=== PATIENT | male | born 1940 | race Hispanic/Latino ===

== ENCOUNTER 2021-02-14 08:08 | Outpatient (CLI) | payer OTHER, SELFPAY ==
--- NOTE | 2021-02-14 | ECHO_ITS ---
Patient Info Name: Miguel Panda Age: 80 years : 1940 Gender: Male Ht: 72 in Wt: 185 lbs BSA: 2.07 m2 HR: 73 bpm BP: 161 / 79 mmHg Heart Rhythm: Sinus Rhythm Technical Quality: Fair Exam Date: 02/14/2021 9:20 AM Exam Location: [facility] Patient Status: Outpatient Admit Date: 02/14/2021 Staff Ordering Physician: Sergey, Ness HOWARD Car Sales Associate: Brielle Burch RDCS Attending Provider: Sergey, Ness HOWARD Referring Physician: Sergey DONALDSON; Exam Type: CA echo doppler color flow Study Info Indications - HX/O HTN ESRD THAYER Complete two-dimensional, color flow and Doppler transthoracic echocardiogram is performed. Summary 1. Complete two-dimensional, color flow and Doppler transthoracic echocardiogram is performed. 2. Normal left ventricular size with mild concentric hypertrophy. Good systolic function of all segments with no segmental wall motion abnormalities and a calculated ejection fraction is 60% and visual ejection fraction of 55-60%. Diastolic dysfunction is present. 3. Left atrial chamber dimension is moderately enlarged. 4. There is mild mitral valve regurgitation. 5. Mild pulmonary hypertension, estimated pulmonary arterial systolic pressure is 41 mmHg. 6. Normal sinus rhythm. Left Ventricle Left ventricular chamber dimension is normal. Left ventricular systolic function is normal, estimated at 55-60%. There is mildly increased left ventricular wall thickness. Left ventricular septal wall motion is normal. The left ventricular diastolic function is abnormal. Right Ventricle Right ventricular chamber dimension is normal. Right ventricular systolic function is normal. Left Atria Left atrial chamber dimension is moderately enlarged. Right Atria Right atrial chamber dimension is normal. Aortic Valve The aortic valve is trileaflet. There is mild aortic valve sclerosis. There is no aortic valve stenosis. There is no aortic valve regurgitation. Pulmonic Valve The pulmonic valve is normal. There is no pulmonic valve stenosis. There is no pulmonic regurgitation. Mitral Valve The mitral valve has thickened leaflets. There is no mitral valve stenosis. There is mild mitral valve regurgitation. Tricuspid Valve The tricuspid valve leaflets are normal. There is no significant tricuspid valve stenosis. There is trace tricuspid valve regurgitation. Mild pulmonary hypertension, estimated pulmonary arterial systolic pressure is 41 mmHg. Pericardium/Pleural The pericardium appears normal. There is no pericardial effusion. Inferior Vena Cava Normal inferior vena cava with >50% collapse upon inspiration consistent with Empty right atrial pressure, 10 mmHg. Aorta The aortic root size at the sinus of Valsalva is normal. The prox ascending aorta size is normal. Left Ventricular Outflow Tract Name Value Normal LVOT 2D LVOT Diameter 2.1 cm LVOT Doppler LVOT Peak Gradient 4 mmHg LVOT Mean Gradient 3 mmHg LVOT VTI 24 cm LVOT VTI/AV VTI Ratio
== END 2021-02-14 08:09 | disposition home or self-care (01) ==
LOC: ANHCARD 08:11
PROVIDERS: PCP Physician Assistant; Visit Provider Physician Assistant
DX: R06.09 Other forms of dyspnea (principal); I34.0 Nonrheumatic mitral (valve) insufficiency
CPT/HCPCS: 93306

== ENCOUNTER 2021-05-01 13:02 | Inpatient (IN) | payer OTHER, SELFPAY ==
[2021-05-01] VITALS (19 sets, daily range): BP systolic 109–143; BP diastolic 52–71; PULSE 82–112; RESP 14–27; TEMP 36–36.8; O2SAT 93–100; BMI 26.5
--- NOTE | ~2021-05-01 | XR_ITS ---
EXAMINATION: XR chest 1V portable DATE: 05/01/2021 17:01 INDICATION: Chest pain. Hypoxia. TECHNIQUE: frontal view of the chest was obtained. COMPARISON: Chest radiograph dated 05/11/2021 at 1:36 PM FINDINGS: Again seen is diffuse increased interstitial pattern with worsening groundglass opacities in the bila teral lower lung zones. No pleural effusion or pneumothorax. The cardiomediastinal silhouette is norm al. There are bridging osteophytes at multiple levels in the spine, consistent with diffuse idiopathi c skeletal hyperostosis (DISH). IMPRESSION: 1. Interstitial and increasing airspace opacities in the bilateral lower lung zones most likely worse ata pulmonary edema although differential includes pneumonia. Reviewed, dictated and finalized at location A. IMPRESSION: 1. Interstitial and increasing airspace opacities in the bilateral lower lung z ones most likely worsening pulmonary edema although differential includes pneum onia.
--- NOTE | ~2021-05-01 | XR_ITS ---
EXAMINATION: XR chest 2V DATE: 05/01/2021 13:40 INDICATION: Chest pain. TECHNIQUE: Frontal and lateral views of the chest were obtained. COMPARISON: CT abdomen and pelvis 01/05/2016 FINDINGS: There is a diffuse interstitial pattern. There are airspace opacities in the perihilar tg ons. No pleural effusion or pneumothorax. The heart size is normal. IMPRESSION: 1. Diffuse lung disease, likely mild pulmonary edema. Reviewed, dictated and finalized at location A.
--- NOTE | ~2021-05-01 | US_ITS ---
US abdomen limited INDICATION: Right upper quadrant abdominal pain PROCEDURE: Realtime right upper abdominal ultrasound. COMPARISON: No prior studies for comparison. FINDINGS: The pancreas is normal without focal mass or pancreatic ductal dilation. Liver echotexture is increased, consistent with fatty infiltration. There is normal directional flow in the portal ve in. There are gallbladder polyp measuring 5 mm. Common bile duct measures 4 mm. No sonographic Bailon's sign. IMPRESSION: 1: Gallbladder polyp measuring 5 mm. 2: Hepatic steatosis. Reviewed, dictated and finalized at location B.
--- NOTE | ~2021-05-01 | CT_ITS ---
EXAMINATION: CT chest abdomen pelvis wo con EXAM DATE: 05/02/2021 11:16 INDICATION: Chest and abd pain . TECHNIQUE: Spiral CT of the chest, abdomen and pelvis was performed without contrast. Axial, chaparro l and sagittal images chest, abdomen and pelvis were reviewed. Coronal maximum intensity pixel image s of chest reviewed. The dose-length product (DLP) for this examination was 1139.32 mGy-cm. The exp osure was tailored according to patient size (auto mA exposure control), and iterative reconstruction (ASIR) was used as additional dose reduction technique. Comparison is made to prior examination from 01/05/2016. FINDINGS: CHEST: There is moderate amount of patchy bilateral perihilar distribution groundglass airspace dise ase and some regions of confluence, probably edema or pneumonia (would be atypical distribution for C OVID 19). Moderate bilateral nonloculated pleural effusions, right greater than left. Right lower lo be segmental, left lower lobe subsegmental atelectasis. Tracheobronchial tree is patent. There is no mediastinal, hilar or axillary lymphadenopathy. There is no pneumothorax. Heart normal in size . There is mild coronary arterial calcification, arterial sclerosis. 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 Possible pancreatic tail cystic les ion measuring 1.1 cm. The differential diagnosis includes pseudocyst, intraductal papillary mucinous neoplasm (IPMN), mucinous cystic neoplasm (MCN), and the less common serous cystadenoma and neuroendo crine tumor. Correlate for history of pancreatitis. The liver, spleen are unremarkable. Probable cholelithiasis. Right kidney calculus casting the renal pelvis and collecting system, could be staghorn calculus. Multiple bilateral renal lesions of varyin g densities, cysts and hemorrhagic cysts. Can't exclude renal cell cancer in the setting, however pat ient was evaluated by MRI in 2016 and no suspicious lesions were identified on that study. There is m ild prostatomegaly. Some diffuse bladder wall thickening, could indicate chronic cystitis. Acute cys titis not excludable. There is no retroperitoneal or pelvic lymphadenopathy. Small to moderate rig ht, small left fat-containing inguinal hernias. Mild to moderate aortic arterial sclerosis. The appendix is not positively visualized. There is no pericecal inflammatory change to suggest appe ndicitis. The stomach and small bowel are unremarkable. There is moderate amount of colonic gas an d fluid to the sigmoid colon, where stool appears more solid in density. No free intraperitoneal ga s. Thoracolumbar diffuse idiopathic skeletal hyperostosis. Chronic sclerotic right femoral proximal diaphyseal lesion, benign. Probably bone island. There are no acute fractures identified. IMPRESSION: 1. Moderate bilateral perihilar distribution acute airspace disease, edema or pneumonia. 2. Moderate bilateral pleural effusions right greater than left with adjacent atelectasis. 3. Moderately distended colon with gas and fluid. No wall thickening. Enteritis, diarrhea? 4. Right renal staghorn calculus. 5. Possible small pancreatic tail cystic mass; one-year follow-up CT recommended. 6. Other chronic findings. Reviewed, dictated and finalized at location A. IMPRESSION: 1. Moderate bilateral perihilar distribution acute airspace disease, edema or pneumonia. 2. Moderate bilateral pleural effusions right greater than left with adjacent atelectasis. 3. Moderately distended colon with gas and fluid. No wall thickening. Enteriti s, diarrhea? 4. Right renal staghorn calculus. 5. Possible small pancreatic tail cystic mass; one-year follow-up CT recommend ed. 6. Other chronic findings.
--- NOTE | ~2021-05-01 | XR_ITS ---
XR chest port-a-cath/central 05/03/2021 10:02 Indication: Dialysis catheter placement Procedure: AP portable chest Comparison: 05/01/2021 Findings: Right IJ large bore central venous catheter tip near the cavoatrial junction. There is inte rstitial edema. No significant effusion or pneumothorax. No acute osseous abnormality. Heart size is normal. Impression: 1: Mild interstitial edema. Reviewed, dictated and finalized at location B. Impression: 1: Mild interstitial edema.
--- NOTE | 2021-05-01 13:02 | ECG_ITS ---
Measurements Intervals [place] Rate: 111 P: 68 GA: 100 QRS: 52 QRSD: 117 T: 87 QT: 338 QTc: 460 Interpretive Statements SINUS TACHYCARDIA WITH SHORT GA INTERVAL VENTRICULAR PREMATURE COMPLEX INTRAVENTRICULAR CONDUCTION DELAY ST-T WAVE ABNORMALITY IN ANTEROLAT/INF LEADS- CONSIDER ISCHEMIA BASELINE ARTIFACT- II, III, AVR, V3-V6 ABNORMAL ECG Electronically Signed On 05-01-2021 13:55:39 CDT by William Hardin D.O.
[2021-05-01] MEDS: MORPHINE SULFATE (*CRX) 4 MG/ML INJ IV PUSH ×2 (13:45→21:24)
[2021-05-01 14:54] LABS: Basophils Percent Auto 0.1 % (0.2-1.2); Immature Granulocyte Absolute 0.07 K/mm3 (0.00-0.031); Immature Granulocyte Percent A 0.5 % (0-0.5); Lymphocytes Absolute Auto 0.68 K/mm3 (0.9-3.2); Lymphocytes Percent Auto 5.1 % (18.3-44.2); Mean Corpuscular HGB Conc 32.2 g/dl (32-36); Mean Corpuscular Hemoglobin 30.3 pg (26-34); Mean Platelet Volume 10.7 fl (7.4-10.4); Monocytes Absolute Auto 0.8 K/mm3 (0.1-0.6); Monocytes Percent Auto 5.9 % (2.6-8.5); Neutrophils Absolute Auto 11.9 K/mm3 (1.3-6.7); Neutrophils Percent Auto 88.4 % (45.5-73.1); Platelet Count Result 180 k/mm3 (150-375); Red Blood Count 2.18 M/mm3 (4.6-6.20); Red Cell Distribution Width 14.1 % (11.5-14.5); White Blood Count 13.5 K/mm3 (4.5-10.0)
[2021-05-01 15:00] LABS: Hemoglobin 6.6 g/dL (14.0-18.0)
[2021-05-01 15:01] LABS: Hematocrit 20.5 % (42.0-52.0)
[2021-05-01 15:03] LABS: Anion Gap 14 mmol/L (8-16); Blood Urea Nitrogen 62 mg/dL (9-20); Calcium 8.1 mg/dL (8.4-10.2); Carbon Dioxide 17 mmol/L (22-30); Chloride 111 mmol/L (98-107); Estimated CRCL calculation 9 ml/min; Estimated Glomerular Filt Rate 9; Glucose 204 mg/dL (75-110); Sodium 142 mmol/L (137-145)
[2021-05-01 15:04] LABS: INR 1.3; Partial Thromboplastin Time 28.4 SECONDS (22.3-36.8); Prothrombin Time 16.4 Seconds (11.1-14.7)
[2021-05-01 15:20] LABS: Troponin I 0.976 ng/mL (0.000-0.034)
--- NOTE | 2021-05-01 15:22 | ED.CHESTPAIN ---
HPI - Chest Pain General Chief Complaint: Chest Pain Stated Complaint: CP/SOB Time Seen by Provider: 05/01/21 13:24 History of Present Illness HPI narrative: Patient is an 81-year-old male who presents ER with chest pain. Reports has been ongoing over the last 3 days. Burning in the center of his chest without radiation. Associated with exertional fatigue and increases when he is exerting himself. Today when he does exert himself he became nauseous and vomited on top of being so short of breath. Reports history of coronary disease and was treated in [place]. Denies having any stents. Has found no alleviating factors outside of rest however he is still having 10/10 chest pain at this time. Apparently patient has recently been seen by Dr. Alejandro with nephrology and was told that he will likely require dialysis in the next month. Additionally he was seen by an unknown marble worker with an unknown cardiology group in [place] yesterday and told that he is not having a heart attack. Related Data Home Medications Medication Instructions Recorded Confirmed alcohol swabs 1 pad TOPICAL DAILY 05/01/21 05/01/21 amlodipine 5 mg PO DAILY 05/01/21 05/01/21 atorvastatin 80 mg PO DAILY 05/01/21 05/01/21 calcitriol 0.25 mcg PO DAILY 05/01/21 05/01/21 ergocalciferol (vitamin D2) 50,000 unit PO DAILY 05/01/21 05/01/21 [Vitamin D2] ferrous sulfate [FeroSul] 650 mg PO BID 05/01/21 05/01/21 hydrochlorothiazide 25 mg PO DAILY 05/01/21 05/01/21 insulin detemir U-100 [Levemir unit SUBCUT 05/01/21 FlexTouch U-100 Insuln] insulin glargine [Basaglar KwikPen See Rx Instructions .ROUTE .COMPLEX 05/01/21 05/01/21 U-100 Insulin] isosorbide mononitrate 30 mg PO DAILY 05/01/21 05/01/21 latanoprost 2 drp EACH EYE DAILY 05/01/21 05/01/21 losartan 100 mg PO DAILY 05/01/21 05/01/21 nystatin 1 unit TOPICAL DAILY 05/01/21 05/01/21 sevelamer carbonate [Renvela] 100 mg PO TID 05/01/21 05/01/21 sodium bicarbonate 650 mg PO DAILY 05/01/21 05/01/21 tamsulosin [Flomax] 0.4 mg PO DAILY 05/01/21 05/01/21 timolol maleate 2 drp EACH EYE DAILY 05/01/21 05/01/21 Allergies Allergy/AdvReac Type Severity Reaction Status Date / Time No Known Allergies Allergy Verified 05/01/21 16:32 Review of Systems Review of Systems: All systems reviewed & are unremarkable except as noted in HPI and below Constitutional: Constitutional: Denies chills, Reports fatigue and Denies fever(s) Cardiovascular: Cardiovascular: Reports chest pain, Denies rapid heart rate and Denies radiating jaw, neck or arm pain Respiratory: Respiratory: Denies cough and Reports dyspnea Comments: Dyspnea on exertion Gastrointestinal: Gastrointestinal: Denies abdominal pain, Reports nausea and Reports vomiting PMFSH Past Medical History Medical History (Updated 05/01/21 @ 17:32 by James Rivera MD) Coronary artery disease Diabetes Hyperlipidemia Hypertension Kidney stones TIA (transient ischemic attack) Surgical History Surgical History (Updated 05/01/21 @ 15:24 by James Rivera MD) History of appendectomy Social History Social History (Updated 05/01/21 @ 15:24 by James Rivera MD) Smoking status: Never smoker Alcohol intake: never Substance use: never Spiritual care concerns: No Exam Narrative: Exam Narrative: GENERAL: Chronically ill-appearing, well-nourished, and in no acute distress. HEAD: Normocephalic, atraumatic. ENT: Mucous membranes moist. CHEST: Clear to auscultation. No respiratory distress. HEART: Regular rate and rhythm. Normal peripheral pulses. ABDOMEN: Soft, nontender, nondistended. EXTREMITIES: Normal range of motion. No edema. SKIN: Warm, dry, no rash. NEURO: Alert and oriented x3. PSYCH: Normal mood and affect. Course Course Emergency Course: Patient will be admitted to the hospitalist service and will receive a blood transfusion. Discussed case with cardiology who will also see patient in consultation. After discussion marianna
--- NOTE | 2021-05-01 16:42 | ECG_ITS ---
Measurements Intervals [place] Rate: 98 P: 59 TN: 120 QRS: 54 QRSD: 117 T: 186 QT: 354 QTc: 454 Interpretive Statements SINUS RHYTHM INTRAVENTRICULAR CONDUCTION DELAY ST-T WAVE ABNORMALITY IN ANTEROLAT/INF LEADS- CONSIDER ISCHEMIA BASELINE ARTIFACT- II, III, AVR, AVL, AVF, V3-V6 ABNORMAL ECG Electronically Signed On 05-02-2021 8:38:37 CDT by William Hardin D.O.
--- NOTE | 2021-05-01 16:43 | PC.NURSE ---
Patient placed on 2L oxygen due to patient's O2 being 89% on room air. Repeat EKG completed due to patient sudden onset more pain and sweating.
--- NOTE | 2021-05-01 16:44 | PM.CNNEP ---
Assessment and Plan Assessment and plan (1) Chronic kidney disease (CKD), stage V: Code(s): N18.5 - Chronic kidney disease, stage 5 Status: Chronic Assessment and Plan: known issue at baseline follow with Dr. Alejandro (primary coal briquette machine operator) reported that will likely need to start HORSE DOCTOR/dialysis in the next month given cardiac issues, anemia, and likely need for further intervetion (possible cardiac catheterization), will plan to initiated hemodialysis on this admission Surgery consulted for tunneled HD catheter follow electrolytes, volume status, and clearance (2) Non-ST elevation [place] (NSTEMI): Code(s): I21.4 - Non-ST elevation (NSTEMI) myocardial infarction Status: Acute Assessment and Plan: as noted by trend of troponins since admission Cardiology consulted follow-up on recommendations (3) Anemia: Code(s): D64.9 - Anemia, unspecified Status: Acute Assessment and Plan: related to CKD versus GI loss? PRBC transfusion currently follow H/H check iron studues will start Epogen with dialysis (4) Hypertension: Code(s): I10 - Essential (primary) hypertension Status: Chronic Assessment and Plan: reasonable control at this time will adjust BP medications as tolerated follow trend of hemodynamics (5) Diabetes: Code(s): E11.9 - Type 2 diabetes mellitus without complications Status: Chronic Assessment and Plan: follow accuchecks glycemic control Long extensive discussion (greater than 20 min) with the patient's daughter at bedside (as well as the patient's granddaughter by phone who was able to translate for me when I discussed the situation with the patient's daughter and the patient himself) regarding his advanced kidney disease, anemia, likely cardiac event, and assess the of packed red blood cell transfusion and possible further cardiac intervention /evaluation. I discussed my concern that given his advanced kidney disease it may be better to initiate renal replacement therapy/dialysis sooner than later to further optimize his status so we can better tolerate whatever interventions may need to be done and they all appeared to voice understanding. Will continue to follow. History of Present Illness Reason for Consult Consult date: 05/01/21 Reason for consult: chronic renal failure Chief Complaint Chief complaint: nstemi,ckd,anemia History of Present Illness Narrative: Most of the information I have obtained is from review of the electronic medical record as well as discussion with the patient's daughter at bedside as well as his granddaughter by phone who acted as motion pictures cartoonist as the patient only speaks [place]. The patient is an 81-year-old male with a past medical history as outlined below who presented to [facility] Emergency room with complaints of chest pain. Apparently, the patient has been having chest pain for last 3 days which she described as a epigastric discomfort that seemed to go across his abdomen into his right arm. Associated symptoms included nausea and 1 episode of vomiting along with increasing shortness of breath for the past 3 days as well. Do the persistence of the symptoms and ongoing discomfort, he presented to the emergency room for further evaluation and therapy. Workup and evaluation emergency room demonstrated an elevated troponin but subsequent troponins consistent with what appeared to be in non ST elevation [place]. Routine blood test demonstrated significant anemia with a hemoglobin of 6.6 and a chemistry panel that was consistent with his known history of advanced chronic kidney disease. In spite of his advanced kidney disease he had no critical electrolyte abnormalities to speak of. His pro BNP was quite elevated as well. Given these constellation of symptoms as well as the findings consistent with what appeared to be a non ST elevation [place], he was admitted the hospital for packed red blo
[2021-05-01 16:49] LABS: Glucose Point of Care 206 mg/dl (65-105)
--- NOTE | 2021-05-01 17:06 | PC.NURSE ---
Called and spoke to Diana in lab to add on BNP @ [phone]
[2021-05-01] MEDS: FUROSEMIDE INJ 40 MG/4 ML VIAL IV PUSH (17:38)
[2021-05-01 17:55] LABS: NT Pro B Type Natriuretic Pept 15000 pg/mL (5-100)
--- NOTE | 2021-05-01 18:05 | ADMGEN ---
This patient, iMguel Panda, was admitted to IMU Room 206-02. Patient/family oriented to hospital policies and general routines including ID bracelet, bed and alarms, visiting hours, pain management, procedures, bathroom and other care routines, personal items, smoking policy, room service/diet, and visiting hours. Information on how to activate the Rapid Response Team has been discussed. Patient/Family are encouraged to report perceived risks to care and to ask questions if they do not understand what they are told or what they should do.
[2021-05-01] MEDS: SODIUM CHLORIDE 0.9% IV 250 ML 30 ML IV CONT (19:05)
[2021-05-01] MEDS: TUBING, BLOOD PLUM PUMP TUBING 1 EACH XX ×2 (19:05→23:00)
[2021-05-01] MEDS: NITROGLYCERIN OINTMENT 1 INCH DOSE TRANSDERM ×2 (21:37→23:39)
--- NOTE | 2021-05-01 22:31 | PM.IMHP ---
H&P: HPI History of Present Illness Date/Time: 05/01/21 22:31 this is a 81-year-old Jordanian-speaking male patient with a past medical history of diabetes, hypertension and coronary artery disease. The patient presented to the emergency room which chest pain. This is been ongoing for 3 days. I used the diplomatic interpreter to talk with the patient initially he told me that the pain was not that bad and then he told me that it was bad pain the patient complained of right epigastric discomfort that went across his abdomen into his right arm. The patient stated that he had been treated for heart attack in [place] in the past. But he denies having any stents. The patient was becoming nauseated when he exerted himself and then he vomited 1 time. Denies any nausea at this time. The patient typically goes to [facility] [place]. He sees Dr. Alejandro with nephrology and was told that most likely he would require dialysis this next month. He was seen by unknown election judge with the cardiology group of [facility] yesterday they told him he was not having a heart attack. H&H is 6.6 and 20.5 the patient is getting a unit of packed red blood cells at this time. Unsure if he just has chronic anemia and this is just got worse. Most likely has chronic anemia on due to his chronic renal failure. His troponin was 0.976 and 2.2-0. BNP 47472 his blood sugar was 202-206. His potassium is normal 4.0. Creatinine 5.8 with a GFR of 9. I spoke with Dr. Marmolejo who agreed to consult on the patient. I also spoke with Dr. Montoya concerning the patient's anemia and is elevated troponin. No heparin was started at this time. No beta-nia was started. When I called the diplomatic interpreter line and the patient was some me that he was having pain I gave him some morphine it looks like the patient had been on isosorbide at home. Admitted to inpatient services on 05/01/2021 Chief Complaint: Chest pain Review of Systems Review of Systems: All systems reviewed & are unremarkable except as noted in HPI and below Constitutional: Constitutional: Reports as per HPI and Reports no additional constitutional complaints Eyes: Eyes: Reports as per HPI and Reports no additional eye complaints ENT: Reports system reviewed and no additional complaints, except as documented and Reports Normal hearing present Cardiovascular: Cardiovascular: Reports no additional cardiovascular complaints Respiratory: Respiratory: Reports no additional respiratory complaints and Reports no additional respiratory complaints Gastrointestinal: Gastrointestinal: Reports as per HPI and Reports no additional gastrointestinal complaints Musculoskeletal: Musculoskeletal: Reports no additional musculoskeletal complaints Integumentary/Breasts: Skin/Breast: Reports system reviewed and no additional complaints, except as docu and Reports as per HPI Neurologic: Reports system reviewed and no additional complaints, except as documented, Reports as per HPI and Reports Normal hearing present Psychiatric: Psychiatric: Reports no additional psychiatric complaints and Reports as per HPI Endocrine: Endocrine: Reports no additional endocrine complaints Hematologic/Lymphatic: Hematologic/Lymphatic: Reports no additional hematologic/lymphatic complaints Allergic/Immunologic: Allergic/Immunologic: Reports no additional allergic/immunologic complaints [facility] Past Medical History Medical History (Updated 05/01/21 @ 22:41 by Devorah Shane NP) BPH (benign prostatic hyperplasia) Coronary artery disease Diabetes Hyperlipidemia Hypertension Kidney stones Myocardial infarction TIA (transient ischemic attack) Surgical History Surgical History (Updated 05/01/21 @ 22:41 by Devorah Shane NP) H/O eye surgery Retinal repair to right eye History of appendectomy History of bladder surgery Family History Family History (Updated 05/01/21 @ 22:42 by Devorah Shane NP) Mother Cancer Social History Social History (Update
[2021-05-01] MEDS: SODIUM CHLORIDE 0.9% IV 250 ML 30 ML (23:00)
[2021-05-01] MEDS: METOPROLOL TARTRATE 6.25 MG TABLET PO (23:30)
[2021-05-01] MEDS: MICONAZOLE NITRATE 2% CREAM 30 GM TUBE 1 APPLIC TOPICAL (23:30)
[2021-05-02] VITALS (18 sets, daily range): BP systolic 133–162; BP diastolic 65–78; PULSE 79–93; RESP 14–20; TEMP 36.3–36.9; O2SAT 91–100
--- NOTE | 2021-05-02 | ECHO_ITS ---
Patient Info Name: Miguel Panda Age: 81 years : 1940 Gender: Male Ht: 65 in Wt: 159 lbs BSA: 1.83 m2 HR: 86 bpm BP: 133 / 73 mmHg Heart Rhythm: Sinus Rhythm Technical Quality: Good Exam Date: 05/02/2021 2:59 PM Exam Location: [facility] Patient Status: Inpatient Admit Date: 05/01/2021 Staff Ordering Physician: eDvorah Shane NP Clinical Education Assistant: Wilton Bailon, SUZIE, RT Attending Provider: Karla Bazan MD Referring Physician: Svitlana SIMENTAL; Exam Type: CA echo doppler color flow Study Info Indications J81.1 - Chronic pulmonary edema Complete two-dimensional, color flow and Doppler transthoracic echocardiogram is performed. Strain analysis performed. Summary 1. Complete two-dimensional, color flow and Doppler transthoracic echocardiogram is performed. 2. Left ventricular systolic function is mildly reduced, estimated at 50-55%. Mild hypokinesis of the mid inferolateral mid anteroseptal wall. 3. There is mildly increased left ventricular wall thickness. 4. The left ventricular diastolic function is grade I diastolic dysfunction. 5. There is mild tricuspid valve regurgitation. 6. Moderate pulmonary hypertension, estimated pulmonary arterial systolic pressure is 53 mmHg. 7. There is mild mitral valve regurgitation. 8. There is borderline mild aortic valve stenosis with a peak velocity of 187 cm/s, mean gradient of 7 mmHg, and aortic valve area of 2.0cm2. 9. There is mild aortic valve regurgitation. Left Ventricle Left ventricular chamber dimension is normal. Left ventricular systolic function is mildly reduced, estimated at 50-55%. Mild hypokinesis of the mid inferolateral mid anteroseptal wall. There is mildly increased left ventricular wall thickness. The left ventricular diastolic function is grade I diastolic dysfunction. Global longitudinal strain is moderately elevated at -10 %. Right Ventricle Right ventricular chamber dimension is normal. Right ventricular systolic function is normal. Left Atria Left atrial chamber dimension is normal. Right Atria Right atrial chamber dimension is normal. Aortic Valve The aortic valve is not well visualized. There is borderline mild aortic valve stenosis with a peak velocity of 187 cm/s, mean gradient of 7 mmHg, and aortic valve area of 2.0cm2. There is mild aortic valve regurgitation. Pulmonic Valve The pulmonic valve is not well visualized. Mitral Valve The mitral valve has normal leaflets. There is mild mitral valve regurgitation. The mitral valve annulus is mildly calcified. Tricuspid Valve The tricuspid valve leaflets are normal. There is mild tricuspid valve regurgitation. Moderate pulmonary hypertension, estimated pulmonary arterial systolic pressure is 53 mmHg. Pericardium/Pleural The pericardium appears normal. There is no pericardial effusion. Inferior Vena Cava Normal inferior vena cava with >50% collapse upon inspiration consistent with normal right atrial pressure, 5 mmHg. Aorta The aortic root size at the sinus of Valsalva is normal. There is mild aortic atherosclerosis. Left Ventricular Outflow Tract Name Value Normal LVOT 2D LVOT Diameter 2.0 cm LVOT Doppler
--- NOTE | 2021-05-02 01:33 | ECG_ITS ---
Measurements Intervals [place] Rate: 92 P: 80 UT: 120 QRS: 64 QRSD: 113 T: 48 QT: 376 QTc: 467 Interpretive Statements SINUS RHYTHM INTRAVENTRICULAR CONDUCTION DELAY ST-T WAVE ABNORMALITY IN ANTERIOR LEADS- CONSIDER ISCHEMIA BASELINE ARTIFACT- I, III, AVR, AVL, AVF, V4-V6 ABNORMAL ECG Electronically Signed On 05-02-2021 6:16:40 CDT by William Hardin D.O.
[2021-05-02] MEDS: MORPHINE SULFATE (*CRX) 4 MG/ML INJ IV PUSH ×4 (01:35→21:35)
[2021-05-02] MEDS: ONDANSETRON INJ 4 MG/2 ML VIAL IV PUSH ×2 (01:35→11:19)
[2021-05-02 02:45] LABS: Hemoglobin 9.6 g/dL (14.0-18.0); Mean Corpuscular Hemoglobin 30.2 pg (26-34); Mean Corpuscular Volume 94.3 fl (80-100); Mean Platelet Volume 10.9 fl (7.4-10.4); Platelet Count Result 177 k/mm3 (150-375); Red Blood Count 3.18 M/mm3 (4.6-6.20); Red Cell Distribution Width 14.5 % (11.5-14.5); White Blood Count 13.4 K/mm3 (4.5-10.0)
[2021-05-02 02:58] LABS: Albumin Level 3.2 g/dL (3.5-5.1); Anion Gap 14 mmol/L (8-16); Blood Urea Nitrogen 66 mg/dL (9-20); Carbon Dioxide 18 mmol/L (22-30); Chloride 110 mmol/L (98-107); Estimated CRCL calculation 9 ml/min; Estimated Glomerular Filt Rate 10; Glucose 142 mg/dL (75-110); Phosphorus 6.7 mg/dL (2.5-4.5); Potassium 4.4 mmol/L (3.4-5.0); Sodium 142 mmol/L (137-145)
[2021-05-02 03:09] LABS: Hemoglobin A1C 5.5 % (<5.7)
[2021-05-02 03:10] LABS: Iron 28 ug/dL (49-181)
[2021-05-02 03:20] LABS: Percent Iron Saturation 11 % (20-50)
[2021-05-02 04:03] LABS: Parathyroid Intact 256.5 pg/mL (7.5-53.5)
[2021-05-02 04:53] LABS: Hepatitis B Surface Antigen Negative (Negative)
[2021-05-02 05:22] LABS: HAV RESULT Negative (Negative); Hepatitis B Core IgM Result Negative (Negative); Hepatitis B Surface Anti Res Indeterminate; Hepatitis C Virus Antibody Negative (Negative)
[2021-05-02 05:36] LABS: Vitamin D 25 Hydroxy 61.8 ng/mL
[2021-05-02] MEDS: NITROGLYCERIN OINTMENT 1 INCH DOSE TRANSDERM ×4 (06:57→23:16)
[2021-05-02] MEDS: amLODIPine BESYLATE 5 MG TABLET PO (09:20)
[2021-05-02] MEDS: METOPROLOL TARTRATE 6.25 MG TABLET PO ×2 (09:20→21:10)
[2021-05-02] MEDS: FAMOTIDINE 20 MG/2 ML VIAL IV PUSH ×2 (09:20→21:10)
[2021-05-02] MEDS: SEVELAMER CARBONATE 800 MG TABLET PO ×3 (09:20→17:46)
[2021-05-02] MEDS: SODIUM BICARBONATE TAB 650 MG TABLET PO (09:20)
[2021-05-02] MEDS: ATORVASTATIN 40 MG TABLET 80 MG PO (09:20)
[2021-05-02] MEDS: TIMOLOL MALEATE 0.5% OP SOLN 5 ML BOTTLE 2 DROP EACH EYE (09:21)
[2021-05-02] MEDS: TAMSULOSIN HCL 0.4 MG CAPSULE PO (09:21)
[2021-05-02] MEDS: MICONAZOLE NITRATE 2% CREAM 30 GM TUBE 1 APPLIC TOPICAL ×2 (09:21→21:10)
[2021-05-02 10:04] LABS: Hematocrit 31.3 % (42.0-52.0); Hemoglobin 10.3 g/dL (14.0-18.0)
--- NOTE | 2021-05-02 10:05 | PM.CNCAR ---
Assessment and Plan Additional Plan 1-elevated troponins consistent with NSTEMI. 2-chest pains. 3-severe anemia. 4-stage 5 kidney disease. 5-abdominal pain and tenderness. This is 81-year-old patient who presents to the hospital with chest pain. He was found to have severe anemia with hemoglobin 6.6 status post blood transfusion. On physical exam has tenderness to epigastric area and right upper quadrant. Used online palliative care specialist and also called the granddaughter. At this time recommend ultrasound of the right upper quadrant and CT of the abdomen and pelvis without contrast. If both are negative then we commend that we start on aspirin and heparin. Obtain echocardiogram. Cardiac catheterization will be done if the CT scan does not show acute abdomen. <Sherrie Moy MD - Last Filed: 05/02/21 10:51> Addendum: Re-evaluated patient at bedside. Patient is sleeping comfortably after receiving morphine for complaints of abdominal pain and right-sided chest pain. Daughter at bedside spoke at length answered all questions described the nature patient's clinical problems concern with regards to bleeding risk, anemia, end-stage renal disease requiring hemodialysis, myocardial infarction with elevated troponin and concern for underlying blockages. Also spoke with patient's granddaughter on the phone as cash checker service had previously been unreliable. Explained the clinical situation of which she was aware in great detail once again. I advised we should monitor patient's tolerance to heparin to ensure no active bleeding or decline in hemoglobin prior to subjecting him to intervention and stenting which would prevent us from discontinuing antiplatelet therapy and/or anticoagulation safely. We also discussed she developed refractory chest pain, hemodynamic instability or new concerning changes on EKG we will take the patient emergently to the starch factory laborer as necessary. As he is stable, comfortable with no further EKG changes will stabilize on anticoagulation, observe tolerance and plan for coronary angiography tomorrow morning. Hemodialysis is also planned tomorrow. Patient's daughter and granddaughter verbalized understanding of the clinical circumstances the, the high risk nature of his multiple comorbidities, advanced age renal disease, anemia, elevated troponin concern for underlying CAD. Echocardiogram bedside revealed mild LV dysfunction EF 45-50% mild inferolateral and/or inferoseptal hypokinesis. Further recommendation to follow. Keep NPO after midnight. Notify us if recurrent refractory chest pain, hemodynamic instability or bleeding complications. Patient's clinical status updated and discussed with Dr. Rao of interventional cardiology who agreed with the plan of care. <Christian Radford MD - Last Filed: 05/02/21 16:05> History of Present Illness History of Present Illness Consult date/time: date of service 05/02/21 10:05 <Sherrie Moy MD - Last Filed: 05/02/21 10:51> Requesting physician: James Rivera MD <Sherrie Moy MD - Last Filed: 05/02/21 10:51> Consult reason: chest pain and Other (Elevated troponins) <Sherrie Moy MD - Last Filed: 05/02/21 10:51> Reason For Visit: nstemi,ckd,anemia <Sherrie Moy MD - Last Filed: 05/02/21 10:51> Narrative: this is a 81-year-old Peruvian-speaking male patient with a past medical history of diabetes, hypertension and coronary artery disease With no stent. I used a palliative care specialist on line got some in for that he has being getting intermittent right chest pain on exertion for 3 months associated with shortness of breath. But the patient is also poor historian. Unfortunately the palliative care specialist line got interrupted several times and I could not complete talking to the patient. I called his granddaughter who stated that he has been having chest pains as well. Denies bleeding. He has been getting shortness of breath as well.
--- NOTE | 2021-05-02 10:21 | PM.IMPN ---
Progress Note: A&P Assessment and Plan (1) Chronic kidney disease (CKD), stage V: Code(s): N18.5 - Chronic kidney disease, stage 5 Status: Chronic Assessment and Plan: Monitor renal function and electrolytes Consult nephrology,l plan to place dialysis catheter to initiate hemodialysis soon. (2) Myocardial infarction: Code(s): I21.9 - Acute myocardial infarction, unspecified Status: Acute Assessment and Plan: Atorvastatin Control blood pressure Discuss cardiology team about plan for cardiac catheterization Cardiology team recommended CT of chest abdomen pelvis and abdominal ultrasound before proceeding with cardiac catheterization, case was discussed with Dr.Farah Crawford anticoagulation until excluding acute surgical etiology, or active bleeding. (3) Diabetes: Code(s): E11.9 - Type 2 diabetes mellitus without complications Status: Chronic Assessment and Plan: Hemoglobin A1c is 5.5 No significant hyperglycemia (4) Hypertension: Code(s): I10 - Essential (primary) hypertension Status: Chronic Assessment and Plan: Norvasc Hydrochlorothiazide Monitor vital signs closely (5) Anemia: Code(s): D64.9 - Anemia, unspecified Status: Acute Assessment and Plan: Status post blood transfusion Monitor vital signs and hemoglobin CT noncontrast Abdominal ultrasound Hemoglobin is stable after blood transfusion. Consider GI consult if stools guaiac are positive (6) CKD (chronic kidney disease): Code(s): N18.9 - Chronic kidney disease, unspecified Status: Acute (7) Pulmonary edema: Code(s): J81.1 - Chronic pulmonary edema Status: Acute Assessment and Plan: Lasix p.r.n. Subjective Date/time seen: 05/02/21 10:21 Patient is laying in bed, complaining of moderate, intermittent, diffuse chest and abdomen pain. No pain at this time. Case was discussed with patient's daughter and patient room. Exam Const: General: No confusion Orientation/consciousness: No confusion HENMT: General nose exam: Normal nares present and no epistaxis Eyes: Direct Ophthalmoscopy: No photophobia Neck: Neck: no JVD Resp: Effort & Inspection: normal respiratory effort Auscultation: clear to auscultation bilaterally Cardio: Rate: regular rate GI: Inspection: non-distended GI Palp: Yes Soft to palpation Skin: General skin exam: normal color Neuro: General: No confusion Cranial nerves: Yes Normal hearing present Speech: No Abnormal speech present Motor exam (neuro): Normal motor muscle tone present throughout and Abnormal motor strength present Extrem: General: normal to inspection Psych: Affect: normal affect Objective Data Vital Signs Vital Signs: Vital Signs - 24 hr 05/01/21 13:03 05/01/21 13:08 05/01/21 13:09 Temperature 98.2 F Pulse Rate 112 H 110 H Respiratory Rate 27 H Blood Pressure 125/65 Pulse Oximetry 100 96 05/01/21 13:46 05/01/21 14:47 05/01/21 16:30 Temperature Pulse Rate 103 H 96 91 Respiratory Rate 24 H 19 18 Blood Pressure 109/52 L 122/58 L 122/60 Pulse Oximetry 95 98 95 05/01/21 17:34 05/01/21 18:00 05/01/21 18:07 Temperature 96.8 F L Pulse Rate 89 98 96 Respiratory Rate 16 20 Blood Pressure 142/71 H 138/67 Pulse Oximetry 100 98 05/01/21 19:06 05/01/21 19:21 05/01/21 20:00 Temperature 97.0 F L 97.1 F L 97.1 F L Pulse Rate 93 89 90 Respiratory Rate 18 16 16 Blood Pressure 143/71 H 142/66 H 142/66 H Pulse Oximetry 97 96 96 05/01/21 20:21 05/01/21 22:00 05/01/21 22:33 Temperature 97.3 F L 97.4 F L Pulse Rate 89 86 89 Respiratory Rate 20 18 Blood Pressure 141/71 H 135/68 Pulse Oximetry 93 100 05/01/21 22:58 05/01/21 23:15 05/01/21 23:30 Temperature 98.1 F 97.8 F Pulse Rate 87 84 82 Respiratory Rate 14 14 Blood Pressure 136/68 134/70 Pulse Oximetry 94 94 05/01/21 23:37 05/02/21 00:00 05/02/21 00:15 Temperature 97.8 F 97.5 F L Pul
--- NOTE | 2021-05-02 10:52 | ECG_ITS ---
Measurements Intervals [place] Rate: 87 P: 59 CO: 146 QRS: 57 QRSD: 113 T: 78 QT: 360 QTc: 435 Interpretive Statements SINUS RHYTHM POSSIBLE LEFT ATRIAL ENLARGEMENT INTRAVENTRICULAR CONDUCTION DELAY BORDERLINE ST-T WAVE ABNORMALITY- DIFFUSE LEADS BASELINE ARTIFACT- I, III, AVL BORDERLINE ECG Electronically Signed On 05-02-2021 13:49:35 CDT by William Hardin D.O.
--- NOTE | 2021-05-02 11:18 | PM.CNGS ---
Assessment and Plan Assessment and plan (1) Chronic kidney disease (CKD), stage V: Code(s): N18.5 - Chronic kidney disease, stage 5 <Brittneywayne CarreonSATHISH quinonez - Last Filed: 05/02/21 14:53> Status: Chronic <Brittney CarreonSATHISH quinonez - Last Filed: 05/02/21 14:53> Assessment and Plan: Patient has chronic kidney disease and we have been asked to see the patient by Nephrology for placement of a tunneled dialysis catheter for hemodialysis access. Due to his acute coronary issues, he is not a candidate to go to the OR for a tunneled dialysis catheter. Therefore, we would recommend proceeding with a temporary dialysis catheter to allow for hemodialysis access. He is making some urine and not in any respiratory distress at this time. Nephrology is not needing to dialyze the patient today and feels it would be okay to wait until tomorrow to proceed with the procedure. This will allow him to complete his cardiac workup today and possibly have his cardiac catheterization if felt necessary by Cardiology. I have discussed the case with Dr. Starks. We will plan to proceed with bedside placement of a temporary dialysis catheter tomorrow with local anesthetic. I have discussed this with the patient and his daughter with the [employer] video manuscript editor. <Brittney Ling CarreonSATHISH quinonez - Last Filed: 05/02/21 14:53> (2) Non-ST elevation [place] (NSTEMI): Code(s): I21.4 - Non-ST elevation (NSTEMI) myocardial infarction <SATHISH Gray - Last Filed: 05/02/21 14:53> Status: Acute <Brittney BLeah LauriSATHISH quinonez - Last Filed: 05/02/21 14:53> Assessment and Plan: Cardiology following and holding off on heparin drip due to anemia. Troponin continues to rise. Plan for possible cardiac catheterization pending CT scan and ultrasound. I have discussed the case with cardiology. See plan above. <Britntey Dubon LauriSATHISH quinonez - Last Filed: 05/02/21 14:53> (3) Anemia: Code(s): D64.9 - Anemia, unspecified <SATHISH Gray - Last Filed: 05/02/21 14:53> Status: Acute <SATHISH Gray - Last Filed: 05/02/21 14:53> Assessment and Plan: Hemoglobin 6.6 on admission. He has received 2 units of PRBCs. This could be more of chronic anemia due to his chronic kidney disease, but this is being further worked up by the primary team. Hemoglobin up to 10.3 this morning after transfusions. Continue to monitor. <Brittney Ahumada COPY SUPERVISOR - Last Filed: 05/02/21 14:53> (4) Pulmonary edema: Code(s): J81.1 - Chronic pulmonary edema <Brittney Ahumada COPY SUPERVISOR - Last Filed: 05/02/21 14:53> Status: Acute <Brittney Ahumada COPY SUPERVISOR - Last Filed: 05/02/21 14:53> (5) Diabetes: Code(s): E11.9 - Type 2 diabetes mellitus without complications <Brittney Tatepeter COPY SUPERVISOR - Last Filed: 05/02/21 14:53> Status: Chronic <Brittney Ahumada COPY SUPERVISOR - Last Filed: 05/02/21 14:53> (6) Hypertension: Code(s): I10 - Essential (primary) hypertension <Brittney Ahumada COPY SUPERVISOR - Last Filed: 05/02/21 14:53> Status: Chronic <Brittney Ahumada COPY SUPERVISOR - Last Filed: 05/02/21 14:53> (7) Abdominal pain: Code(s): R10.9 - Unspecified abdominal pain <Brittney Ahumada COPY SUPERVISOR - Last Filed: 05/02/21 14:53> Status: Acute <Brittney Ahumada COPY SUPERVISOR - Last Filed: 05/02/21 14:53> Assessment and Plan: Patient going down for abdominal ultrasound and CT scan of the abdomen and pelvis due to abdominal pain and tenderness. We will review these results. Due to his acute cardiac issues, he would not be a candidate for surgical intervention, and we would likely plan for the most least invasive option for treatment as well as supportive care. If he has evidence of acute cholecystitis, we will plan for percutaneous cholecystostomy tube placement in IR. <Brittney Ahumada, COPY SUPERVISOR - Last Filed: 05/02/21 14:53> Additional Plan I have discussed the patient's case and plan of care w
[2021-05-02 12:32] LABS: Glucose Point of Care 116 mg/dl (65-105)
[2021-05-02 13:35] LABS: Basophils Percent Auto 0.1 % (0.2-1.2); Hematocrit 31.5 % (42.0-52.0); Hemoglobin 10.2 g/dL (14.0-18.0); Immature Granulocyte Absolute 0.11 K/mm3 (0.00-0.031); Immature Granulocyte Percent A 0.7 % (0-0.5); Lymphocytes Absolute Auto 0.75 K/mm3 (0.9-3.2); Lymphocytes Percent Auto 4.5 % (18.3-44.2); Mean Corpuscular HGB Conc 32.4 g/dl (32-36); Mean Corpuscular Hemoglobin 30.3 pg (26-34); Mean Corpuscular Volume 93.5 fl (80-100); Mean Platelet Volume 11.1 fl (7.4-10.4); Monocytes Absolute Auto 1.2 K/mm3 (0.1-0.6); Monocytes Percent Auto 7.4 % (2.6-8.5); Neutrophils Absolute Auto 14.4 K/mm3 (1.3-6.7); Neutrophils Percent Auto 87.3 % (45.5-73.1); Platelet Count Result 182 k/mm3 (150-375); Red Blood Count 3.37 M/mm3 (4.6-6.20); Red Cell Distribution Width 14.9 % (11.5-14.5); White Blood Count 16.6 K/mm3 (4.5-10.0)
[2021-05-02 13:43] LABS: INR 1.2; Prothrombin Time 15.9 Seconds (11.1-14.7)
[2021-05-02 13:44] LABS: Partial Thromboplastin Time 28.8 SECONDS (22.3-36.8)
[2021-05-02] MEDS: HEPARIN SOD/D5W 100 UNITS/ML 25,000 UNITS/250 ML BAG 9 UNITS IV CONT (14:01)
[2021-05-02] MEDS: HEPARIN SODIUM 5,000 UNITS/ML VIAL 4000 UNITS IV PUSH (14:02)
[2021-05-02] MEDS: ASPIRIN 325 MG TABLET PO (14:08)
[2021-05-02 14:35] LABS: Hepatitis B Core IgM Result Negative (Negative)
--- NOTE | 2021-05-02 15:13 | P.PNNP_ITS ---
Progress Note: A&P Assessment and Plan (1) Chronic kidney disease (CKD), stage V: Code(s): N18.5 - Chronic kidney disease, stage 5 Status: Chronic Assessment and Plan: * known issue at baseline * follow with Dr. Alejandro (primary keypunch operator) * reported that will likely need to start DRY COLOR TESTER/dialysis in the next month * given cardiac issues, anemia, and likely need for further intervetion (possible cardiac catheterization), will plan to initiated hemodialysis on this admission * Surgery consulted for tunneled HD catheter (likely placement tomorrow) * follow electrolytes, volume status, and clearance (2) Non-ST elevation [place] (NSTEMI): Code(s): I21.4 - Non-ST elevation (NSTEMI) myocardial infarction Status: Acute Assessment and Plan: * as noted by trend of troponins since admission * Cardiology following with recommendations noted (3) Anemia: Code(s): D64.9 - Anemia, unspecified Status: Acute Assessment and Plan: * related to CKD versus GI loss? * s/p PRBC transfusion * follow H/H * evidence of iron deficiency by anemia studies * will start Epogen and IV iron with dialysis (4) Hypertension: Code(s): I10 - Essential (primary) hypertension Status: Chronic Assessment and Plan: * reasonable control at this time * will adjust BP medications as tolerated * follow trend of hemodynamics (5) Diabetes: Code(s): E11.9 - Type 2 diabetes mellitus without complications Status: Chronic Assessment and Plan: * follow accuchecks * glycemic control Will continue to follow. Subjective Date/time seen: 05/02/21 15:13 Still with some intermittent chest pain along with epigastric pain; CT of abdomen/pelvis earlier today with results noted; seen by Cardiology and Surgery earlier today as well; no apparent distress voiced at the time of my visit. Exam Narrative: Exam Narrative: General: WD/WN male in NAD Heart: normal S1 and S2; no rub Lungs: decreased breath sounds noted Abdomen: soft, nontender, nondistended, positive bowel sounds Extremities: no cyanosis or clubbing; trace edema Skin: warm and dry Objective Data Vital Signs Vital Signs: Vital Signs Temp Pulse Resp BP Pulse Ox 05/02/21 14:00 87 05/02/21 12:00 36.9 C 86 18 146/71 H 91 05/02/21 10:00 80 05/02/21 09:20 90 05/02/21 09:10 97 05/02/21 08:00 36.6 C 84 20 147/73 H 91 05/02/21 06:00 86 05/02/21 04:00 36.3 C L 84 16 133/73 95 05/02/21 02:00 79 05/02/21 01:15 36.4 C 86 16 141/74 H 94 05/02/21 00:15 36.4 C L 89 14 137/65 94 05/02/21 00:00 79 05/01/21 23:37 36.6 C 84 14 134/70 94 05/01/21 23:30 82 05/01/21 23:15 36.6 C 84 14 134/70 94 05/01/21 22:58 36.7 C 87 14 136/68 94 05/01/21 22:33 36.3 C L 89 18 135/68 100 05/01/21 22:00 86 05/01/21 20:21 36.3 C L 89 20 141/71 H 93 Intake/Output Intake/Output: Intake & Output 04/29/21 04/30/21 05/01/21 05/02/21 23:59 23:59 23:59 23:59 Intake Total 456 350 Output Total 150 875 Balance 306 -525 Meds/Results Medications: Active Medications Generic Name Dose
--- NOTE | 2021-05-02 15:13 | PM.PNNEP ---
Progress Note: A&P Assessment and Plan (1) Chronic kidney disease (CKD), stage V: Code(s): N18.5 - Chronic kidney disease, stage 5 Status: Chronic Assessment and Plan: known issue at baseline follow with Dr. 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/dialysis in the next month given cardiac issues, anemia, and likely need for further intervetion (possible cardiac catheterization), will plan to initiated hemodialysis on this admission Surgery consulted for tunneled HD catheter (likely placement tomorrow) follow electrolytes, volume status, and clearance (2) Non-ST elevation [place] (NSTEMI): Code(s): I21.4 - Non-ST elevation (NSTEMI) myocardial infarction Status: Acute Assessment and Plan: as noted by trend of troponins since admission Cardiology following with recommendations noted (3) Anemia: Code(s): D64.9 - Anemia, unspecified Status: Acute Assessment and Plan: related to CKD versus GI loss? s/p PRBC transfusion follow H/H evidence of iron deficiency by anemia studies will start Epogen and IV iron with dialysis (4) Hypertension: Code(s): I10 - Essential (primary) hypertension Status: Chronic Assessment and Plan: reasonable control at this time will adjust BP medications as tolerated follow trend of hemodynamics (5) Diabetes: Code(s): E11.9 - Type 2 diabetes mellitus without complications Status: Chronic Assessment and Plan: follow accuchecks glycemic control Will continue to follow. Subjective Date/time seen: 05/02/21 15:13 Still with some intermittent chest pain along with epigastric pain; CT of abdomen/pelvis earlier today with results noted; seen by Cardiology and Surgery earlier today as well; no apparent distress voiced at the time of my visit. Exam Narrative: Exam Narrative: General: WD/WN male in NAD Heart: normal S1 and S2; no rub Lungs: decreased breath sounds noted Abdomen: soft, nontender, nondistended, positive bowel sounds Extremities: no cyanosis or clubbing; trace edema Skin: warm and dry Objective Data Vital Signs Vital Signs: Vital Signs Temp Pulse Resp BP Pulse Ox 05/02/21 14:00 87 05/02/21 12:00 36.9 C 86 18 146/71 H 91 05/02/21 10:00 80 05/02/21 09:20 90 05/02/21 09:10 97 05/02/21 08:00 36.6 C 84 20 147/73 H 91 05/02/21 06:00 86 05/02/21 04:00 36.3 C L 84 16 133/73 95 05/02/21 02:00 79 05/02/21 01:15 36.4 C 86 16 141/74 H 94 05/02/21 00:15 36.4 C L 89 14 137/65 94 05/02/21 00:00 79 05/01/21 23:37 36.6 C 84 14 134/70 94 05/01/21 23:30 82 05/01/21 23:15 36.6 C 84 14 134/70 94 05/01/21 22:58 36.7 C 87 14 136/68 94 05/01/21 22:33 36.3 C L 89 18 135/68 100 05/01/21 22:00 86 05/01/21 20:21 36.3 C L 89 20 141/71 H 93 Intake/Output Intake/Output: Intake & Output 04/29/21 04/30/21 05/01/21 05/02/21 23:59 23:59 23:59 23:59 Intake Total 456 350 Output Total 150 875 Balance 306 -525 Meds/Results Medications: Active Medications Generic Name Dose Route Start Last Admin Trade Name Claudia PRN Reason Stop Dose Admin Acetaminophen 650 mg 05/01/21 16:14 Acetaminophen 325 Mg Tablet PO Q4H PRN Mild Pain (1-3) or Fever Hydrocodone Bitart/Acetaminophen 1 tab 05/01/21 16:14 Hydrocodone/Acetaminophen (*Crx) 5-325 Mg Tablet PO Q4H PRN Pain Rated 4-6 Amlodipine Besylate 5 mg 05/02/21 09:00 05/02/21 09:20 Amlodipine Besylate 5 Mg Tablet PO 5 mg DAILY LEAH Administration Aspirin 325 mg 05/02/21 13:05 05/02/21 14:08 Aspirin 325 Mg Tablet PO 325 mg DAILY@0800 LEAH Administration Atorvastatin Calcium 80 mg 05/02/21 09:00 05/02/21 09:20 Atorvastatin 40 Mg Tablet PO 80 mg DAILY LEAH Administration Dextrose 12.5 gm 05/01/21 22:27 Dextrose 50% 25 Gm/50 M
[2021-05-02 16:26] LABS: Glucose Point of Care 124 mg/dl (65-105)
[2021-05-02 20:37] LABS: Glucose Point of Care 131 mg/dl (65-105)
[2021-05-02 20:39] LABS: Partial Thromboplastin Time 73.4 SECONDS (22.3-36.8)
[2021-05-02] MEDS: LATANOPROST 0.005% OP SOLN 2.5 ML BTL 1 DROP EACH EYE (21:10)
[2021-05-03] VITALS (13 sets, daily range): BP systolic 92–155; BP diastolic 33–68; PULSE 65–88; RESP 12–94; TEMP 36.4–36.6; O2SAT 93–100
[2021-05-03 02:34] LABS: Basophils Percent Auto 0.1 % (0.2-1.2); Hematocrit 30.4 % (42.0-52.0); Hemoglobin 9.8 g/dL (14.0-18.0); Immature Granulocyte Percent A 0.7 % (0-0.5); Lymphocytes Absolute Auto 1.11 K/mm3 (0.9-3.2); Lymphocytes Percent Auto 7.8 % (18.3-44.2); Mean Corpuscular HGB Conc 32.2 g/dl (32-36); Mean Corpuscular Hemoglobin 30.6 pg (26-34); Mean Platelet Volume 10.3 fl (7.4-10.4); Monocytes Absolute Auto 1.2 K/mm3 (0.1-0.6); Monocytes Percent Auto 8.6 % (2.6-8.5); Neutrophils Absolute Auto 11.7 K/mm3 (1.3-6.7); Neutrophils Percent Auto 82.8 % (45.5-73.1); Platelet Count Result 178 k/mm3 (150-375); Red Cell Distribution Width 14.8 % (11.5-14.5); White Blood Count 14.2 K/mm3 (4.5-10.0)
[2021-05-03 02:42] LABS: INR 1.4; Prothrombin Time 17.7 Seconds (11.1-14.7)
[2021-05-03 02:43] LABS: Lactic Acid Reflex 0.7 mmol/L (0.7-2.1)
[2021-05-03 02:44] LABS: Partial Thromboplastin Time 71.8 SECONDS (22.3-36.8)
[2021-05-03 03:02] LABS: Alanine Aminotransferase 25 U/L (4-50); Alkaline Phosphatase 80 U/L (38-126); Anion Gap 12 mmol/L (8-16); Aspartate Amino Transferase 38 U/L (17-59); Bilirubin,Total 0.6 mg/dL (0.2-1.3); Blood Urea Nitrogen 79 mg/dL (9-20); Calcium 8.1 mg/dL (8.4-10.2); Carbon Dioxide 19 mmol/L (22-30); Chloride 110 mmol/L (98-107); Creatine Kinase 316 U/L (55-170); Estimated CRCL calculation 7 ml/min; Estimated Glomerular Filt Rate 8; Glucose 130 mg/dL (75-110); Lipase 94 U/L (23-300); Magnesium 1.7 mg/dL (1.6-2.3); Phosphorus 8.1 mg/dL (2.5-4.5); Potassium 4.1 mmol/L (3.4-5.0); Sodium 141 mmol/L (137-145)
[2021-05-03] MEDS: NITROGLYCERIN OINTMENT 1 INCH DOSE TRANSDERM (05:50)
[2021-05-03] MEDS: TAMSULOSIN HCL 0.4 MG CAPSULE PO (08:39)
[2021-05-03] MEDS: MICONAZOLE NITRATE 2% CREAM 30 GM TUBE 1 APPLIC TOPICAL (08:39)
[2021-05-03] MEDS: ATORVASTATIN 40 MG TABLET 80 MG PO (08:40)
[2021-05-03] MEDS: FAMOTIDINE 20 MG/2 ML VIAL IV PUSH (08:40)
[2021-05-03] MEDS: METOPROLOL TARTRATE 6.25 MG TABLET PO (08:40)
[2021-05-03] MEDS: SODIUM BICARBONATE TAB 650 MG TABLET PO (08:40)
[2021-05-03] MEDS: amLODIPine BESYLATE 5 MG TABLET PO (08:40)
[2021-05-03] MEDS: TIMOLOL MALEATE 0.5% OP SOLN 5 ML BOTTLE 2 DROP EACH EYE (08:41)
[2021-05-03 08:54] LABS: Glucose Point of Care 112 mg/dl (65-105)
[2021-05-03] MEDS: ASPIRIN 325 MG TABLET PO (09:32)
--- NOTE | 2021-05-03 10:13 | P.OP_ITS ---
Procedure Note - Detailed Date of Procedure 05/03/21 Pre-op Diagnosis acute renal failure Post-op Diagnosis same Procedure Performed placement of 12 Togolese right internal jugular temporary hemodialysis catheter measuring 20 cm via ultrasound guidance Surgeon Annabelle Starks MD Anesthesia local Indications 81-year-old male with multiple medical issues including NSTEMI with acute on chronic renal failure necessitating emergent hemodialysis Findings right internal jugular vein patent on ultrasound, 1st stick Description of Procedure The patient was placed in the supine position. The bed was then placed in Trendelenburg with the patient facing to his left to expose the right neck. I then prepped and draped the right neck in normal sterile fashion. A time-out was then done to verify the patient's identity as well as the procedure being performed. I then used the ultrasound to view the right internal jugular vein. Once this was identified, I localized the skin superior to the vein. I then used the 18 gauge needle to gain access into the right internal jugular vein, once again under ultrasound guidance. Once this was noted in good position, I removed the needle just leaving the guidewire in the vein. I then enlarged the incision around the guidewire in the right neck. I then dilated the vein and using the dilators provided in the kit under sterile Seldinger technique. Once the vein was adequately dilated, I was able to easily slide the catheter over the guidewire into the right internal jugular vein. I placed a 20 cm 12 Togolese Trialysis catheter into the right internal jugular vein. I then removed the guidewire, now just leaving the catheter in the vein. I was then able to easily draw and flush from all 3 port sites . I then sutured the catheter in place in the right neck. Sterile dressing was then placed. I did not place final heparin flush into the catheter as the patient is going to get emergent dialysis today. The patient tolerated the procedure well. Estimated Blood Loss 5 Drains No Packing No Pathology none sent Complications No immediate complications Condition critical Disposition floor
--- NOTE | 2021-05-03 12:03 | PM.PNCARD ---
Progress Note: A&P Additional Plan 81-year-old man with significant comorbidities including end-stage renal disease and significant anemia presents with epigastric/chest pain obvious evidence of non ST elevation VA by troponin levels. Despite increase risk aggressive treatment / evaluation is recommended and the thusly will proceed with angiography this afternoon. Further recommendations of course will be pending completion of that exam. Mahesh Rao MD [facility] Subjective Date/time seen: Date of service:05/03/21 12:03 Interval history: Follow-up visit in this 81-year-old man with: Acute coronary syndrome, non ST-elevation VA. History difficult to obtain because the patient speaks no Mauritian but yesterday was admitted with epigastric discomfort which eventually did radiated to the substernal region and down the right arm associated with significant troponin rise obvious evidence of non ST elevation VA. No previous history of documented coronary artery disease. Unfortunately the patient also has near end-stage renal disease and severe anemia upon admission. Red cell volume has been improved with transfusion yesterday. He appears to be comfortable at this time and not complaining of any further chest pain. Long discussion with the patient, daughter and family by telephone regarding the plans at this time. Obviously expectation has been set that we will bring this patient to the cardiac construction or leak gang laborer for an angiogram. It is also obvious that the patient is a high risk gentleman for PCI and aggressive anti-platelet therapy in this situation. The procedure the risks of significant bleeding and hemorrhagic problems related to anticoagulation and anti-platelet therapy were discussed in detail. Desire on all parties concerned is to proceed with an angiogram today which I will go ahead and schedule. Exam Const: General: comfortable and no acute distress Other: elderly gentleman no distress of any kind supine in bed HENMT: Mouth: Yes dry mucous membranes Eyes: Sclera: sclerae normal Pupils: Equal, round and reactive pupils present Neck: Neck: supple and no JVD Other: carotid upstrokes are intact bilaterally Resp: Effort & Inspection: normal respiratory effort Auscultation: clear to auscultation bilaterally Cardio: Rate: regular rate Rhythm: regular rhythm GI: GI Palp: Yes Soft to palpation Auscultation: normal bowel sounds Skin: General skin exam: normal color Neuro: Cognition (Neuro): normal cognition Extrem: Other: no acute edema good distal pulses Objective Data Vital Signs Vital Signs: Vital Signs - 24 hr 05/02/21 14:00 05/02/21 16:00 05/02/21 18:00 Temperature 36.6 C Pulse Rate 87 82 85 Respiratory Rate 20 Blood Pressure 155/77 H Pulse Oximetry 100 05/02/21 19:21 05/02/21 20:00 05/02/21 21:10 Temperature 36.8 C Pulse Rate 91 93 91 Respiratory Rate 18 Blood Pressure 162/78 H Pulse Oximetry 94 05/02/21 22:00 05/03/21 00:00 05/03/21 01:41 Temperature 36.5 C Pulse Rate 82 81 80 Respiratory Rate 94 H Blood Pressure 129/56 L Pulse Oximetry 93 05/03/21 04:00 05/03/21 06:00 05/03/21 08:00 Temperature 36.4 C L 36.6 C Pulse Rate 88 75 74 Respiratory Rate 22 H 22 H Blood Pressure 146/67 H 154/68 H Pulse Oximetry 95 95 05/03/21 08:40 Temperature Pulse Rate 88 Respiratory Rate Blood Pressure Pulse Oximetry Intake/Output Intake/Output: Intake & Output 04/30/21 05/01/21 05/02/21 05/03/21 23:59 23:59 23:59 23:59 Intake Total 456 350 500 Output Total 150 875 701 Balance 983 -410 -692 Meds/Results Medications: Active Medications Generic Name Dose Route Start Last Admin Trade Name Freq PRN Reason Stop Dose Admin Acetaminophen 650 mg 05/01/21 16:14 Acetaminophen 325 Mg Tablet PO Q4H PRN Mild Pain (1-3) or Fever Hydrocodone Bitart/Acetaminophen 1 tab 05/01/21 16:14 Hydrocodone/Acetaminophen (*Crx)
[2021-05-03 12:23] LABS: Glucose Point of Care 105 mg/dl (65-105)
--- NOTE | 2021-05-03 13:42 | PC.NURSE ---
Patient to supervisor cytogenetic laboratory @[phone].
--- NOTE | 2021-05-03 14:44 | WPDCARDPROC ---
Cardiac Cath Procedure Note Date of procedure:: 05/03/21 Performing physician:: Mahesh Rao MD Indication:: non ST-elevation OK Brief clinical history:: this is an 81-year-old man with a history of advancing renal failure he now has essentially end-stage renal disease and is just received a dialysis catheter this morning. He had some chest pain yesterday upon entering the hospital, anterolateral ST segment depression and significant troponin rise. In this setting an angiogram has been recommended. The patient was significantly anemic yesterday and has been given a red cell transfusion now has a hemoglobin of 9.8. Procedure Procedure performed:: Coronary angiography intra-aortic balloon pump insertion Sedation/Medication given:: no sedation case start time 1408 hours case end time 2:38 p.m. Access site:: right femoral artery Estimated blood loss:: 15-20 cc Procedure note:: patient was brought to the cardiac catheterization lab in the postabsorptive state IV heparin had been running on the floor that was discontinued on the way to the phlebotomist medical lab assistant. The right femoral triangle was prepped and draped in the usual fashion. Anesthesia was provided with 1% lidocaine infiltrated locally. Using the modified Seldinger technique a 5 Latvian sheath was placed into the femoral artery and I then performed coronary angiography. The left coronary artery was engaged and injected using a 5 Latvian FL4 catheter. The right coronary artery was engaged using a WRP catheter. The cine angiograms were then reviewed. I then elected to place an 8 Latvian intra-aortic balloon pump. The sheath was changed over the guidewire for a balloon pump sheath the balloon pump was then placed into the descending aorta and connected to one-to-one pumping. The patient was then given 5000 units of heparin and the sheath and balloon pump were sutured into position. The patient will be taken to the ICU with the a balloon pump in place with plans for transfer to a higher level of care for high risk percutaneous revascularization or CABG. Findings:: Central aortic pressure is 1 38/70, the left ventricle was not entered during this procedure the left main coronary artery is medium in caliber there is a high-grade stenosis in the midportion of the left main that is rather eccentric but represents about 85-90% stenosis in the HEBREW cranial projection. The left anterior descending is a moderate caliber artery extending down to around the apex. There is minimal luminal irregularity in the LAD itself but no functionally significant disease is identified. A small mid diagonal branch has a 80% stenosis. Circumflex is a medium caliber artery giving rise to the marginal branches the circumflex as also mild luminal irregularities noted but no significant lesions are identified. The right coronary artery is large in caliber and dominant to the posterior circulation the right coronary artery is essentially smooth and angiographically normal in appearance Conclusion:: 1. acute coronary syndrome / non ST elevation OK in this patient with end-stage renal disease presenting with high-grade mid stenosis in the left main coronary. Angiographically this lesion is amenable to stenting although unprotected left main stenting is not prudent to perform performed in this laboratory. 2. End-stage renal disease with temporary right jugular dialysis catheter having been placed earlier today. Plans are for dialysis following this procedure 3. because of critical left main stenosis intra-aortic balloon pump was placed following this angiogram the patient will be systemically heparinized and placed in the ICU the plans are being made for transfer to a higher level of care for either high-risk PCI or surgical revascularization Mahesh Rao MD [facility]
--- NOTE | 2021-05-03 15:21 | PM.TDS ---
Transfer Discharge Sum: Prov Provider Date of admission: 05/01/21 16:14 Primary care physician: Ness Rincon, PA Admitting clinician: Karla Bazan MD Consults: 05/01/21 Consult to Physician Routine Comment: Consulting Provider: Devin Jama Reason for consultation: placement of tunneled HD catheter for correction dialysis Has provider been notified: No Consult to Physician Routine Comment: DR. BUSTILLOS CONTACTED BY THE ED Consulting Provider: Sheela Bustillos calliope player/MD group to consult: ruddy Reason for consultation: esrd Has provider been notified: Yes 05/01/21 16:15 Consult to Physician Routine Comment: SPOKE WITH DR. RADFORD Consulting Provider: Christian Radford calliope player/ group to consult: gisela Reason for consultation: nstemi Has provider been notified: Yes DS: Admitting Diagnosis Admitting Diagnosis Admitting Diagnosis: Chest pain DS: Discharge Diagnosis Discharge Diagnosis (1) Chronic kidney disease (CKD), stage V: Code(s): N18.5 - Chronic kidney disease, stage 5 Status: Chronic Assessment and Plan: Monitor renal function and electrolytes Consult nephrology,l plan to place dialysis catheter to initiate hemodialysis soon. (2) Myocardial infarction: Code(s): I21.9 - Acute myocardial infarction, unspecified Status: Acute Assessment and Plan: Atorvastatin Control blood pressure Discuss cardiology team about plan for cardiac catheterization Cardiology team recommended CT of chest abdomen pelvis and abdominal ultrasound before proceeding with cardiac catheterization, case was discussed with Dr.Farah Crawford anticoagulation until excluding acute surgical etiology, or active bleeding. (3) Diabetes: Code(s): E11.9 - Type 2 diabetes mellitus without complications Status: Chronic Assessment and Plan: Hemoglobin A1c is 5.5 No significant hyperglycemia (4) Hypertension: Code(s): I10 - Essential (primary) hypertension Status: Chronic Assessment and Plan: Norvasc Hydrochlorothiazide Monitor vital signs closely (5) Anemia: Code(s): D64.9 - Anemia, unspecified Status: Acute Assessment and Plan: Status post blood transfusion Monitor vital signs and hemoglobin CT noncontrast Abdominal ultrasound Hemoglobin is stable after blood transfusion. Consider GI consult if stools guaiac are positive (6) CKD (chronic kidney disease): Code(s): N18.9 - Chronic kidney disease, unspecified Status: Acute (7) Pulmonary edema: Code(s): J81.1 - Chronic pulmonary edema Status: Acute Assessment and Plan: Douglas hale Transfer Discharge Sum: Med Medications Active and Home Medications: Home Medications alcohol swabs 1 pad TOPICAL DAILY 05/01/21 [History Confirmed 05/01/21] amlodipine 5 mg PO DAILY 05/01/21 [History Confirmed 05/01/21] atorvastatin 80 mg PO DAILY 05/01/21 [History Confirmed 05/01/21] calcitriol 0.25 mcg PO DAILY 05/01/21 [History Confirmed 05/01/21] ergocalciferol (vitamin D2) [Vitamin D2] 50,000 unit PO DAILY 05/01/21 [History Confirmed 05/01/21] ferrous sulfate [FeroSul] 650 mg PO BID 05/01/21 [History Confirmed 05/01/21] hydrochlorothiazide 25 mg PO DAILY 05/01/21 [History Confirmed 05/01/21] insulin detemir U-100 [Levemir FlexTouch U-100 Insuln] See Rx Instructions .ROUTE .COMPLEX 05/01/21 [History Confirmed 05/01/21] insulin glargine [Basaglar KwikPen U-100 Insulin] See Rx Instructions .ROUTE .COMPLEX 05/01/21 [History Confirmed 05/01/21] isosorbide mononitrate 30 mg PO DAILY 05/01/21 [History Confirmed 05/01/21] latanoprost 2 drp EACH EYE DAILY 05/01/21 [History Confirmed 05/01/21] losartan 100 mg PO DAILY 05/01/21 [History Confirmed 05/01/21] nystatin 1 unit TOPICAL DAILY 05/01/21 [History Confirmed 05/01/21] sevelamer carbonate [Renvela] 100 mg PO TID 05/01/21 [History Confirmed 05/01/21] sodium bicarbonate 650 mg PO DAILY 05/01/21 [History C
--- NOTE | 2021-05-03 15:30 | ADMGEN ---
This patient, Miguel Panda, was admitted to Intensive Care Unit-6. Patient/family oriented to hospital policies and general routines including ID bracelet, bed and alarms, visiting hours, pain management, procedures, bathroom and other care routines, personal items, smoking policy, room service/diet, and visiting hours. Information on how to activate the Rapid Response Team has been discussed. Patient/Family are encouraged to report perceived risks to care and to ask questions if they do not understand what they are told or what they should do.
[2021-05-03 17:20] LABS: Glucose Point of Care 90 mg/dl (65-105)
--- NOTE | 2021-05-03 17:30 | PC.NURSE ---
Patient is non-Korean speaking. Using intrepreter via Str[employer] device to communicate. Intrepretor name Beatrice ([id number]).
[2021-05-06 03:08] LABS: Hepatitis B Core Ab Total Nonreactive (Nonreactive)
== END 2021-05-03 18:10 | disposition home or self-care (01) | DRG 190 ==
LOC: ANHED 16:17 → ANHIMU 17:32 → ANHICU 05-07 14:59 → ANHIMU 05-07 14:59
PROVIDERS: Emergency Medicine; Internal Medicine Cardiovascular Disease; Internal Medicine Nephrology; Nurse Practitioner; Specialist; Admitting Provider Family Medicine; Emergency Provider Emergency Medicine; PCP Physician Assistant; Visit Provider Family Medicine
PROC: 5A02210 Assistance with Cardiac Output using Balloon Pump, Continuous (ICD-10-PCS; CPT 93454; principal; 2021-05-03 13:00)
PROC: 5A02210 Assistance with Cardiac Output using Balloon Pump, Continuous (ICD-10-PCS; 2021-05-03 13:00)
DX: I21.4 Non-ST elevation (NSTEMI) myocardial infarction (principal); I25.10 Atherosclerotic heart disease of native coronary artery without angina pectoris; E11.22 Type 2 diabetes mellitus with diabetic chronic kidney disease; I12.0 Hypertensive chronic kidney disease with stage 5 chronic kidney disease or end stage renal disease; N18.6 End stage renal disease; D64.9 Anemia, unspecified; J81.1 Chronic pulmonary edema; E78.5 Hyperlipidemia, unspecified; N40.0 Benign prostatic hyperplasia without lower urinary tract symptoms; R10.10 Upper abdominal pain, unspecified; Z79.4 Long term (current) use of insulin; Z79.899 Other long term (current) drug therapy; Z86.73 Personal history of transient ischemic attack (TIA), and cerebral infarction without residual deficits
CPT/HCPCS: 33967; 36415; 36430; 71045; 71046; 71250; 74176; 76705; 80048; 80053; 80069; 80074; 82306; 82550; 82728; 82948; 83036; 83540; 83550; 83605; 83690; 83735; 83880; 83970; 84100; 84484; 85014; 85018; 85025; 85027; 85610; 85730; 86704; 86705; 86706; 86850; 86900; 86901; 86923; 93005; 93306; 93454; 96374; 99291; A9270; C1752; C1887; C1894; J1644; J1940; J2250; J2270; J2405; J3010; J7040; J7050; P9016

== ENCOUNTER 2021-05-25 13:21 | Emergency (ER) | payer OTHER, SELFPAY ==
[2021-05-25] VITALS (13 sets, daily range): BP systolic 101–145; BP diastolic 51–59; PULSE 65–79; RESP 10–21; TEMP 36.8; O2SAT 97–100
--- NOTE | ~2021-05-25 | CT_ITS ---
EXAMINATION: CT abdomen pelvis wo con EXAM DATE: 05/25/2021 14:24 INDICATION: Hematuria. History kidney stones. TECHNIQUE: Spiral CT of the abdomen and pelvis was performed without contrast. Axial, coronal and sag ittal images were reviewed. The dose-length product (DLP) for this examination was 198.70 mGy-cm. T he exposure was tailored according to patient size (auto mA exposure control), and iterative reconstr uction (ASIR) was used as additional dose reduction technique. Comparison is made to prior examinatio n from 05/02/2021. FINDINGS: Large right kidney stone casting renal pelvis and calyces, has appearance of a staghorn ca lculus. No hydronephrosis. There are innumerable cysts and hemorrhagic cysts bilaterally. Cannot excl ude any solid renal mass in this setting. The prostate is unremarkable. The bladder is collapsed wi th diffusely thickened wall, probably chronic cystitis. Small to moderate right-sided fat-containing inguinal hernia. Previously described possible subcentimeter pancreatic tail cystic mass less well-visualized, but unc hanged; one-year follow-up CT would be appropriate. There is a left adrenal gland lesion containing m acroscopic fat, a myelolipoma. Liver, spleen, right adrenal gland are unremarkable. Gallbladder is u nremarkable. No biliary obstruction. There is no retroperitoneal or pelvic lymphadenopathy. There is moderate scattered arteriosclerotic disease. The appendix is not positively visualized. There is no pericecal inflammatory change to suggest appe ndicitis. The stomach and small bowel are unremarkable. There is expected amount of colonic stool. No free intraperitoneal gas. The heart is normal in size. There are no pericardial or pleural e ffusions. Resolution of previously seen pneumonia and pleural effusions. Nonspecific sclerotic focu s in the right femur, probably bone island or other benign histology. IMPRESSION: 1. Right-sided staghorn calculus. Numerous bilateral renal lesions, most likely cysts and hemorrhagi c cysts but can't exclude solid mass in the setting. 2. Chronic cystitis. 3. Possible subcentimeter pancreatic tail cystic lesion; one-year follow-up exam. 4. Left adrenal myelolipoma. 5. Resolution of previously seen pneumonia, pleural effusions. Reviewed, dictated and finalized at location A. IMPRESSION: 1. Right-sided staghorn calculus. Numerous bilateral renal lesions, most likel y cysts and hemorrhagic cysts but can't exclude solid mass in the setting. 2. Chronic cystitis. 3. Possible subcentimeter pancreatic tail cystic lesion; one-year follow-up ex am. 4. Left adrenal myelolipoma. 5. Resolution of previously seen pneumonia, pleural effusions.
--- NOTE | 2021-05-25 14:11 | ED.MALEGU ---
HPI - Male Genitourinary General Chief complaint: Urogenital-Male Stated complaint: blood in urine Time Seen by Provider: 05/25/21 13:58 Source: patient and family Mode of arrival: ambulatory Limitations: no limitations History of Present Illness HPI Narrative: Patient is an 81-year-old male complaining of blood in his urine. According to daughter blood in his urine started 4 days ago. Denies any abdominal pain, flank pain, dysuria, fever or chills. Related Data Home Medications Medication Instructions Recorded Confirmed alcohol swabs 1 pad TOPICAL DAILY 05/01/21 05/01/21 amlodipine 5 mg PO DAILY 05/01/21 05/01/21 atorvastatin 80 mg PO DAILY 05/01/21 05/01/21 calcitriol 0.25 mcg PO DAILY 05/01/21 05/01/21 ergocalciferol (vitamin D2) 50,000 unit PO DAILY 05/01/21 05/01/21 [Vitamin D2] ferrous sulfate [FeroSul] 650 mg PO BID 05/01/21 05/01/21 hydrochlorothiazide 25 mg PO DAILY 05/01/21 05/01/21 insulin detemir U-100 [Levemir See Rx Instructions .ROUTE .COMPLEX 05/01/21 05/01/21 FlexTouch U-100 Insuln] insulin glargine [Basaglar KwikPen See Rx Instructions .ROUTE .COMPLEX 05/01/21 05/01/21 U-100 Insulin] isosorbide mononitrate 30 mg PO DAILY 05/01/21 05/01/21 latanoprost 2 drp EACH EYE DAILY 05/01/21 05/01/21 losartan 100 mg PO DAILY 05/01/21 05/01/21 nystatin 1 unit TOPICAL DAILY 05/01/21 05/01/21 sevelamer carbonate [Renvela] 100 mg PO TID 05/01/21 05/01/21 sodium bicarbonate 650 mg PO DAILY 05/01/21 05/01/21 tamsulosin [Flomax] 0.4 mg PO DAILY 05/01/21 05/01/21 timolol maleate 2 drp EACH EYE DAILY 05/01/21 05/01/21 Allergies Allergy/AdvReac Type Severity Reaction Status Date / Time No Known Allergies Allergy Verified 05/25/21 13:54 Review of Systems Review of Systems: All systems reviewed & are unremarkable except as noted in HPI and below Constitutional: Constitutional: Denies body ache(s), Denies chills, Denies excessive sweating, Denies fatigue, Denies fever(s), Denies headache(s), Denies lethargy, Denies malaise, Denies weakness and Denies weight loss Eyes: Eyes: Denies blurry vision, Denies change in vision and Denies loss of vision ENT: Denies dizziness, Denies ear discharge, Denies headache(s), Denies lip swelling, Denies epistaxis, Denies nasal congestion, Denies neck pain, Denies throat swelling and Denies tongue swelling Cardiovascular: Cardiovascular: Denies chest pain, Denies chest pain at rest, Denies chest pain with activity, Denies diaphoresis, Denies rapid heart rate, Denies edema, Denies irregular heart rhythm, Denies lightheadedness, Denies palpitations, Denies dyspnea and Denies dyspnea on exertion Respiratory: Respiratory: Denies chest congestion, Denies cough, Denies hemoptysis, Denies dyspnea and Denies dyspnea on exertion Gastrointestinal: Gastrointestinal: Denies abdominal pain, Denies melena, Denies hematochezia, Denies diarrhea, Denies nausea, Denies vomiting and Denies hematemesis Musculoskeletal: Musculoskeletal: Denies abnormal gait, Denies deformity, Denies joint swelling, Denies limited range of motion, Denies neck pain and Denies numbness Neurologic: Denies Abnormal speech present, Denies abnormal gait, Denies confusion, Denies dizziness, Denies headache(s), Denies focal weakness, Denies loss of vision, Denies numbness, Denies Other visual disturbances, Denies Sensory deficit (Neuro) and Denies weakness Psychiatric: Psychiatric: Denies confusion, Denies depression, Denies auditory hallucinations, Denies homicidal ideation and Denies suicidal ideation Endocrine: Endocrine: Denies cold intolerance, Denies excessive sweating, Denies fatigue, Denies heat intolerance and Denies palpitations Hematologic/Lymphatic: Hematologic/Lymphatic: Denies easy bleeding and Denies easy bruising Allergic/Immunologic: Allergic/Immunologic: Denies lip swelling, Denies throat swelling and Denies tongue swelling PMFSH Past Medical History Medical History (Reviewed 05/25/21 @ 14:12 by Dao Rider MD
[2021-05-25 15:00] LABS: Basophils Percent Auto 0.5 % (0.2-1.2); Eosinophils Absolute Auto 0.1 K/mm3 (0-0.3); Eosinophils Percent Auto 2.2 % (0-4.4); Hematocrit 25.5 % (42.0-52.0); Immature Granulocyte Absolute 0.02 K/mm3 (0.00-0.031); Immature Granulocyte Percent A 0.4 % (0-0.5); Lymphocytes Absolute Auto 1.75 K/mm3 (0.9-3.2); Lymphocytes Percent Auto 31.8 % (18.3-44.2); Mean Corpuscular HGB Conc 31.4 g/dl (32-36); Mean Corpuscular Hemoglobin 29.6 pg (26-34); Mean Corpuscular Volume 94.4 fl (80-100); Mean Platelet Volume 10.4 fl (7.4-10.4); Monocytes Absolute Auto 0.6 K/mm3 (0.1-0.6); Monocytes Percent Auto 10.5 % (2.6-8.5); Neutrophils Percent Auto 54.6 % (45.5-73.1); Platelet Count Result 203 k/mm3 (150-375); White Blood Count 5.5 K/mm3 (4.5-10.0)
[2021-05-25 15:07] LABS: Add Urine Microscopic? YES; Appearance Urine Cloudy (Clear); Bacteria Urine Trace /hpf; Bilirubin Urine Negative (Negative); Blood Urine 2+ (Negative); Color Urine Yellow (Yellow); Glucose Urine UA Negative (Negative); Ketones Urine Negative (Negative); Leukocyte Esterase Ur 3+ LEU/UL (Negative); Nitrate Urine Negative (Negative); Protein Urine 3+ mg/dL (Negative); RBC Urine >75 /hpf (0-2); Squamous Epithelial Cell Urine Occasional /hpf (Few); Urobilinogen Urine Negative mg/dL (<2.0); WBC Urine >75 /hpf
[2021-05-25 15:11] LABS: Alanine Aminotransferase 22 U/L (4-50); Albumin Level 3.1 g/dL (3.5-5.1); Alkaline Phosphatase 173 U/L (38-126); Anion Gap 4 mmol/L (8-16); Aspartate Amino Transferase 23 U/L (17-59); Bilirubin,Total 0.7 mg/dL (0.2-1.3); Blood Urea Nitrogen 12 mg/dL (9-20); Calcium 8.3 mg/dL (8.4-10.2); Carbon Dioxide 35 mmol/L (22-30); Chloride 100 mmol/L (98-107); Estimated CRCL calculation 22 ml/min; Estimated Glomerular Filt Rate 24; Glucose 104 mg/dL (75-110); INR 1.2; Partial Thromboplastin Time 31.5 SECONDS (22.3-36.8); Potassium 4.2 mmol/L (3.4-5.0); Sodium 139 mmol/L (137-145)
== END 2021-05-25 16:51 | disposition home or self-care (01) ==
PROVIDERS: Emergency Provider Emergency Medicine; PCP Physician Assistant
DX: N30.01 Acute cystitis with hematuria (principal); E11.22 Type 2 diabetes mellitus with diabetic chronic kidney disease; I12.0 Hypertensive chronic kidney disease with stage 5 chronic kidney disease or end stage renal disease; N18.6 End stage renal disease; I25.10 Atherosclerotic heart disease of native coronary artery without angina pectoris; I25.2 Old myocardial infarction; E78.5 Hyperlipidemia, unspecified; Z86.73 Personal history of transient ischemic attack (TIA), and cerebral infarction without residual deficits
CPT/HCPCS: 36415; 74176; 80053; 81001; 85025; 85610; 85730; 87077; 87086; 87088; 87186; 96365; 99284; J0696

== ENCOUNTER 2021-06-09 06:26 | Inpatient (IN) | payer OTHER, SELFPAY ==
--- NOTE | ~2021-06-09 | XR_ITS ---
EXAMINATION: XR abdomen NG/feed tube insert DATE: 06/09/2021 14:54 INDICATION: Nasogastric tube placement TECHNIQUE: A supine view of the abdomen and lower chest was obtained for evaluation of feeding tube placement. COMPARISON: None. FINDINGS: Nasogastric tube tip at the distal esophagus approximately 4 cm above level of the gastroesophageal j unction. Large-bore dual-lumen right internal jugular central venous catheter with distal tip near th e superior cavoatrial junction. Multiple mildly dilated gas-filled loops of small bowel in the upper abdomen consistent with small bowel obstruction. Lungs are clear. No pleural effusion. Heart size is normal. There are bridging osteophytes at multiple levels in the spine, consistent with diffuse idiop athic skeletal hyperostosis (DISH). IMPRESSION: 1. Nasogastric tube in the distal esophagus. Recommend advancement by 15 cm. 2. Persistent dilated gas-filled loops of small bowel consistent with small bowel obstruction which o n prior CT appears to result from a small bowel volvulus. Reviewed, dictated and finalized at location A. IMPRESSION: 1. Nasogastric tube in the distal esophagus. Recommend advancement by 15 cm. 2. Persistent dilated gas-filled loops of small bowel consistent with small bow el obstruction which on prior CT appears to result from a small bowel volvulus.
--- NOTE | ~2021-06-09 | XR_ITS ---
EXAMINATION: XR abdomen/kub 1V INDICATION: Small bowel obstruction TECHNIQUE: Supine views of the abdomen were obtained on 2 radiographs. COMPARISON: 06/10/2021 FINDINGS: The nasogastric tube is in the stomach. There are multiple dilated loops of small bowel wit h increase in number in the mid abdomen. No free intraperitoneal gas is identified. IMPRESSION: 1. Small bowel obstruction. Reviewed, dictated and finalized at location B. IMPRESSION: 1. Small bowel obstruction.
--- NOTE | ~2021-06-09 | CT_ITS ---
EXAMINATION: CT abdomen pelvis wo con DATE: 06/09/2021 07:36 INDICATION: Generalized abdominal pain TECHNIQUE: Computed tomography (CT) of the abdomen and pelvis was performed without intravenous contr ast. The dose-length product (DLP) was 376.82 mGy-cm. Automated exposure control and iterative recons truction technique were employed. COMPARISON: 05/25/2021 FINDINGS: Minimal dependent atelectasis is present in the lung bases. The heart size is normal. The l iver, spleen, and right adrenal gland are normal. The previously described cystic lesion in the tail of the pancreas is not well demonstrated. 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 Th ere is mild gallbladder distention. A staghorn calculus is present in the right renal pelvis. There a re multiple additional nonobstructing stones of the right kidney. There are several cysts in both kid neys which are simple, proteinaceous, and hemorrhagic. There is no hydronephrosis or hydroureter. The re is a small volume of perihepatic and perisplenic ascites. There are multiple dilated loops of smal l bowel with an apparent transition point in the mid abdomen and decompression of the distal small kadi wel. No free intraperitoneal gas is identified. No pathologically enlarged abdominal or pelvic lymph nodes are identified. There are fat-containing inguinal hernias. Severe lumbar spondylosis is noted. There is chronic wall thickening of the urinary bladder. IMPRESSION: 1. Mildly dilated small bowel loops with decompressed distal small bowel, ileus versus obstruction. 2. Mildly distended gallbladder which could be due to fasting state. 3. Stable staghorn calculus of the right kidney and multiple nonobstructing right kidney stones. Reviewed, dictated and finalized at location A. IMPRESSION: 1. Mildly dilated small bowel loops with decompressed distal small bowel, ileus versus obstruction. 2. Mildly distended gallbladder which could be due to fasting state. 3. Stable staghorn calculus of the right kidney and multiple nonobstructing rig ht kidney stones.
--- NOTE | ~2021-06-09 | XR_ITS ---
EXAMINATION: XR abdomen NG/feed tube rechec DATE: 06/09/2021 15:33 INDICATION: Nasogastric tube advancement TECHNIQUE: A supine view of the abdomen and lower chest was obtained for evaluation of feeding tube placement. COMPARISON: 06/09/2021 at 2:45 PM FINDINGS: Is a gastric tube tip in proximal side port in the body of the stomach. Multiple mildly dilated gas-f illed loops of small bowel consistent with small bowel obstruction. Visualized portions of the mid an d lower lungs are clear. Heart size is normal. IMPRESSION: 1. Nasogastric tube in stomach. 2. Small bowel obstruction. Reviewed, dictated and finalized at location A.
--- NOTE | ~2021-06-09 | XR_ITS ---
XR abdomen NG/feed tube insert DATE: 06/13/2021 17:33 INDICATION: NG tube insertion TECHNIQUE: Portable AP view on 06/13/2021 1729 hours COMPARISON: 06/11/2021 KUB 06/09/2021 CT abdomen pelvis FINDINGS: An NG tube is present in the gastric fundus, the proximal side-port approximately 6.5 [address] stal to the diaphragmatic hiatus. Normal heart size. The lung bases appear essentially clear. Some dilated gas distended small bowel segments are again noted overlying the upper abdomen. IMPRESSION: NG tube in gastric fundus Reviewed, dictated and finalized at Location A. Reviewed, dictated and finalized at location A. IMPRESSION: NG tube in gastric fundus
--- NOTE | ~2021-06-09 | XR_ITS ---
EXAMINATION: XR abdomen NG/feed tube insert INDICATION: Nasogastric tube insertion TECHNIQUE: Portable AP KUB-NG at 1141 hours COMPARISON: CT from today FINDINGS: The nasogastric tube is in the left mainstem bronchus. Multiple dilated loops of small merly l are evident. The visualized lung bases are clear. There is a partially imaged large bore catheter e nding with its tip in the right atrium. IMPRESSION: 1. Nasogastric tube in the left mainstem bronchus. Tube has been repositioned at the time of interpre tation. Reviewed, dictated and finalized at location A. IMPRESSION: 1. Nasogastric tube in the left mainstem bronchus. Tube has been repositioned a t the time of interpretation.
--- NOTE | ~2021-06-09 | XR_ITS ---
EXAMINATION: XR abdomen NG/feed tube rechec INDICATION: Nasogastric tube repositioning TECHNIQUE: Portable AP KUB-NG at 1155 hours COMPARISON: 1141 hours FINDINGS: The repositioned nasogastric tube ends in the stomach. Multiple dilated loops of small merly l are present. The visualized lung bases are clear. A large bore right internal jugular catheter ends with its tip in the proximal right atrium. IMPRESSION: 1. Nasogastric tube in the stomach. 2. Small bowel obstruction. Reviewed, dictated and finalized at location A.
--- NOTE | ~2021-06-09 | XR_ITS ---
EXAMINATION: XR abdomen/kub 1V DATE: 06/10/2021 06:36 INDICATION: Small bowel obstruction TECHNIQUE: A supine view of the abdomen was obtained. COMPARISON: None. FINDINGS: Nasogastric tube tip and proximal side port in the body of the stomach. No significant interval pettit e in several mildly dilated gas-filled loops of bowel in the abdomen consistent with small bowel obst ruction. Prominent hypertrophic endplate osteophytes in the lower lumbar spine. IMPRESSION: 1. Small bowel obstruction. Reviewed, dictated and finalized at location A. IMPRESSION: 1. Small bowel obstruction.
--- NOTE | 2021-06-09 06:44 | ECG_ITS ---
Measurements Intervals [place] Rate: 73 P: 68 [place]: 147 QRS: 48 QRSD: 118 T: 68 QT: 442 QTc: 488 Interpretive Statements SINUS RHYTHM INTRAVENTRICULAR CONDUCTION DELAY PROLONGED QT INTERVAL BASELINE ARTIFACT- I, II, III, AVR, AVL, AVF, V2-V6 ABNORMAL ECG Electronically Signed On 06-09-2021 7:28:14 CDT by William Hardin D.O.
[2021-06-09 06:49] VITALS: BP 131/61; PULSE 75; RESP 13; TEMP 36.7; O2SAT 100
[2021-06-09 06:58] LABS: Basophils Percent Auto 0.3 % (0.2-1.2); Eosinophils Absolute Auto 0.1 K/mm3 (0-0.3); Eosinophils Percent Auto 0.9 % (0-4.4); Hemoglobin 9.5 g/dL (14.0-18.0); Immature Granulocyte Absolute 0.03 K/mm3 (0.00-0.031); Immature Granulocyte Percent A 0.3 % (0-0.5); Lymphocytes Absolute Auto 1.27 K/mm3 (0.9-3.2); Lymphocytes Percent Auto 13.2 % (18.3-44.2); Mean Corpuscular HGB Conc 31.7 g/dl (32-36); Mean Corpuscular Hemoglobin 30.4 pg (26-34); Mean Corpuscular Volume 95.8 fl (80-100); Monocytes Absolute Auto 0.7 K/mm3 (0.1-0.6); Neutrophils Absolute Auto 7.5 K/mm3 (1.3-6.7); Neutrophils Percent Auto 78.3 % (45.5-73.1); Platelet Count Result 175 k/mm3 (150-375); Red Blood Count 3.13 M/mm3 (4.6-6.20); Red Cell Distribution Width 14.7 % (11.5-14.5); White Blood Count 9.6 K/mm3 (4.5-10.0)
[2021-06-09 07:08] LABS: Alanine Aminotransferase 15 U/L (4-50); Albumin Level 3.3 g/dL (3.5-5.1); Alkaline Phosphatase 146 U/L (38-126); Anion Gap 7 mmol/L (8-16); Aspartate Amino Transferase 20 U/L (17-59); Bilirubin,Total 0.6 mg/dL (0.2-1.3); Blood Urea Nitrogen 27 mg/dL (9-20); Calcium 8.5 mg/dL (8.4-10.2); Carbon Dioxide 36 mmol/L (22-30); Chloride 94 mmol/L (98-107); Estimated Glomerular Filt Rate 15; Glucose 164 mg/dL (65-110); Lipase 215 U/L (23-300); Potassium 3.7 mmol/L (3.4-5.0); Sodium 137 mmol/L (137-145)
--- NOTE | 2021-06-09 07:21 | ED.ABDPAIN ---
HPI - Abdominal Pain General Chief Complaint: Abdominal Pain Stated Complaint: Abd pain Time Seen by Provider: 06/09/21 07:11 History of Present Illness HPI narrative: He has had continuous 81 yo male w/ multiple medical problems including ESRD, HTN, CAD presents to the ED for abdominal pain. Continuous generailzed pain since yesterday. Burning and tight in quality. Associated with nausea and multiple episodes of vomiting. He has never had this before. Pain at the time of my evaluation is mild. Related Data Home Medications Medication Instructions Recorded Confirmed alcohol swabs 1 pad TOPICAL DAILY 05/01/21 05/01/21 amlodipine 5 mg PO DAILY 05/01/21 05/01/21 atorvastatin 80 mg PO DAILY 05/01/21 05/01/21 calcitriol 0.25 mcg PO DAILY 05/01/21 05/01/21 ergocalciferol (vitamin D2) 50,000 unit PO DAILY 05/01/21 05/01/21 [Vitamin D2] ferrous sulfate [FeroSul] 650 mg PO BID 05/01/21 05/01/21 hydrochlorothiazide 25 mg PO DAILY 05/01/21 05/01/21 insulin detemir U-100 [Levemir See Rx Instructions .ROUTE .COMPLEX 05/01/21 05/01/21 FlexTouch U-100 Insuln] insulin glargine [Basaglar KwikPen See Rx Instructions .ROUTE .COMPLEX 05/01/21 05/01/21 U-100 Insulin] isosorbide mononitrate 30 mg PO DAILY 05/01/21 05/01/21 latanoprost 2 drp EACH EYE DAILY 05/01/21 05/01/21 losartan 100 mg PO DAILY 05/01/21 05/01/21 nystatin 1 unit TOPICAL DAILY 05/01/21 05/01/21 sevelamer carbonate [Renvela] 100 mg PO TID 05/01/21 05/01/21 sodium bicarbonate 650 mg PO DAILY 05/01/21 05/01/21 tamsulosin [Flomax] 0.4 mg PO DAILY 05/01/21 05/01/21 timolol maleate 2 drp EACH EYE DAILY 05/01/21 05/01/21 Allergies Allergy/AdvReac Type Severity Reaction Status Date / Time No Known Allergies Allergy Verified 05/25/21 13:54 Review of Systems Review of Systems: All systems reviewed & are unremarkable except as noted in HPI and below Constitutional: Constitutional: Denies chills and Denies fever(s) Cardiovascular: Cardiovascular: Denies chest pain Respiratory: Respiratory: Denies dyspnea Gastrointestinal: Gastrointestinal: Reports as per HPI, Denies constipation and Denies diarrhea Genitourinary: Genitourinary: Denies hematuria and Denies dysuria Musculoskeletal: Musculoskeletal: Reports no additional musculoskeletal complaints Neurologic: Denies confusion, Denies dizziness and Denies weakness [facility] Past Medical History Medical History BPH (benign prostatic hyperplasia) Coronary artery disease Diabetes Hyperlipidemia Hypertension Kidney stones Myocardial infarction TIA (transient ischemic attack) Surgical History Surgical History H/O eye surgery Retinal repair to right eye History of appendectomy History of bladder surgery Family History Family History Mother Cancer Social History Social History Social History: The patient lives with his and daughter. The patient had 4 children but 1 has . 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 He is Divehi-speaking. He is listed as a full code. He denies any alcohol and denies any tobacco abuse or marijuana. Smoking status: Never smoker Alcohol intake: never Substance use: never Gender identity (if verbalized by the patient): Male Spiritual care concerns: No Exam Const: General: healthy appearing, no acute distress and alert Orientation/consciousness: patient oriented x3 HENMT: Head: normal to inspection Neck: Neck: normal visual inspection Chest: Chest palpation & inspection: normal inspection of the chest Resp: Effort & Inspection: normal respiratory effort Auscultation: clear to auscultation bilaterally Cardio: Rate: regular rate Rhythm: regular rhythm GI: Inspection: non-distended GI Palp: Ye
[2021-06-09] MEDS: ONDANSETRON INJ 4 MG/2 ML VIAL IV PUSH (07:35)
[2021-06-09 08:00] VITALS: BP 129/67; PULSE 70; RESP 18; O2SAT 100
--- NOTE | 2021-06-09 08:04 | PC.NURSE ---
This RN attempted to straight cath pt and was unsuccessful. Pt was bladder scanned. EDP notified
[2021-06-09 09:00] VITALS: BP 125/74; PULSE 81; RESP 18; O2SAT 100
[2021-06-09 10:24] LABS: Add Urine Microscopic? YES; Appearance Urine Cloudy (Clear); Bacteria Urine Trace /hpf; Bilirubin Urine Negative (Negative); Blood Urine 3+ (Negative); Color Urine Yellow (Yellow); Glucose Urine UA Negative (Negative); Ketones Urine Negative (Negative); Leukocyte Esterase Ur 3+ LEU/UL (Negative); Mucus Urine Rare /lpf; Nitrate Urine Negative (Negative); Protein Urine 3+ mg/dL (Negative); RBC Urine >75 /hpf (0-2); Specific Grav Ur 1.011 (1.001-1.035); Squamous Epithelial Cell Urine Occasional /hpf (Few); Urobilinogen Urine Negative mg/dL (<2.0); WBC Urine >75 /hpf
--- NOTE | 2021-06-09 12:15 | PM.CNGS ---
Assessment and Plan Assessment and plan (1) Partial small bowel obstruction: Code(s): K56.600 - Partial intestinal obstruction, unspecified as to cause Status: Acute Assessment and Plan: mid abdominal pain and imaging suggestive of partial small-bowel obstruction. Patient also had nausea and vomiting. Discussed these findings and the diagnosis with the patient's daughter and the patient. Explained that he will need a nasogastric tube and that usually this does resolve without surgery. In the event that it does not resolve, he may require laparotomy. For now will place NG, give some IV fluids, follow serial exam and labs with plain films of the abdomen. He will also receive p.r.n. analgesics. Will follow along with you. (2) Chronic kidney disease (CKD), stage V: Code(s): N18.5 - Chronic kidney disease, stage 5 Status: Chronic Assessment and Plan: On dialysis Thursday and Thursday (3) Non-ST elevation MA (NSTEMI): Code(s): I21.4 - Non-ST elevation (NSTEMI) myocardial infarction Status: Chronic Assessment and Plan: daughter reports there was no heart muscle damage with his coronary stenting in April. Records from this are not available. It is surprising to me that he is not on anti-platelet therapy. Consider cardiology consult to evaluate. Patient has appointment to see his telephone ad taker on Thursday but it is unlikely he will be able to make that appointment. Discussed this with the daughter as well. (4) Diabetes: Code(s): E11.9 - Type 2 diabetes mellitus without complications Status: Chronic Assessment and Plan: On insulin. History of Present Illness Consult details Consult date: 06/09/21 Reason for consult: abdominal pain Requesting physician: Александр Ramachandran MD Narrative: Patient is an 81-year-old man with insulin-dependent diabetes and end-stage renal disease on hemodialysis. He was admitted [facility] about 1 month ago and found to have an acute coronary syndrome. He had a high-grade stenosis of the left main and was transferred to [facility]. While there, he had left main coronary angioplasty and stenting. He has had no problems with chest pain since then. He lives with his daughter. He speaks almost no Andorran-speaking. She served as the family advocate. She gave me most of the history. The patient started having periumbilical abdominal pain last night around midnight. He had some nausea and vomiting as well. This persisted and he came to the emergency room this morning. He was noted to have some abdominal tenderness. He was not particularly distended. However CT scan showed evidence of a partial small bowel obstruction with transition point. I was asked to see the patient for surgical consultation and management. He has had a previous appendectomy with a right lower quadrant scar. He has had no other abdominal surgery. 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) Cardiovascular: Cardiovascular: Denies chest pain, Denies diaphoresis, Denies dyspnea and Denies paroxysmal nocturnal dyspnea Respiratory: Respiratory: Denies chest congestion, Denies cough and Denies dyspnea Gastrointestinal: Gastrointestinal: Reports as per HPI, Reports abdominal pain, Reports nausea and Reports vomiting Integumentary/Breasts: Skin/Breast: Denies lesions and Denies rash PMFSH Past Medical History Medical History BPH (benign prostatic hyperplasia) Coronary artery disease Diabetes Hyperlipidemia Hypertension Kidney stones Myocardial infarction TIA (transient ischemic attack) Surgical History Surgical History H/O eye surgery Retinal repair t
[2021-06-09 12:47] LABS: Hemoglobin A1C 5.9 % (<5.7)
[2021-06-09] MEDS: MORPHINE SULFATE (*CRX) 2 MG/ML INJ 1 MG IV PUSH (12:58)
--- NOTE | 2021-06-09 13:45 | PM.IMHP ---
H&P: HPI History of Present Illness Date/Time: 06/09/21 13:45Giles is a 81-year-old Burkinan-speaking male patient who has end-stage renal disease and has dialysis on Thursday and Thursday. Patient went to dialysis this past Thursday. The patient was up all night complaining of abdominal pain. He did eat yesterday but has been having continuous generalized pain since yesterday. patient's abdomen is distended continue is rating his pain a 10 at this time. He has never had symptoms like this before. Abdominal pelvis CT was read as mildly dilated small bowel loops with decompressed distal small bowel ileus versus obstruction. Mildly distended gallbladder which could be due to fasting state. Stable staghorn calculus in the right kidney and multiple nonobstructing right kidney stones. An NG tube was placed. His H&H is 9.5 and 30.0. His urine was positive for UTI. The patient does continue to make some urine. He is complaining of some abdominal pain all over. The patient was given Zofran in the emergency room. the daughter is at the bedside interpreting for the patient. Patient is being admitted to inpatient services on the date of service of 06/09/2021.. Chief Complaint: abdominal pain Review of Systems Review of Systems: All systems reviewed & are unremarkable except as noted in HPI and below Constitutional: Constitutional: Reports as per HPI and Reports no additional constitutional complaints Eyes: Eyes: Reports as per HPI and Reports no additional eye complaints ENT: Reports system reviewed and no additional complaints, except as documented and Reports Normal hearing present Cardiovascular: Cardiovascular: Reports no additional cardiovascular complaints Respiratory: Respiratory: Reports no additional respiratory complaints and Reports no additional respiratory complaints Gastrointestinal: Gastrointestinal: Reports as per HPI and Reports no additional gastrointestinal complaints Musculoskeletal: Musculoskeletal: Reports no additional musculoskeletal complaints Integumentary/Breasts: Skin/Breast: Reports system reviewed and no additional complaints, except as docu and Reports as per HPI Neurologic: Reports system reviewed and no additional complaints, except as documented, Reports as per HPI and Reports Normal hearing present Psychiatric: Psychiatric: Reports no additional psychiatric complaints and Reports as per HPI Endocrine: Endocrine: Reports no additional endocrine complaints Hematologic/Lymphatic: Hematologic/Lymphatic: Reports no additional hematologic/lymphatic complaints Allergic/Immunologic: Allergic/Immunologic: Reports no additional allergic/immunologic complaints [facility] Past Medical History Medical History (Updated 06/09/21 @ 14:00 by Devorah Shane NP) BPH (benign prostatic hyperplasia) Coronary artery disease Diabetes ESRD (end stage renal disease) Hyperlipidemia Hypertension Kidney stones Myocardial infarction TIA (transient ischemic attack) Surgical History Surgical History H/O eye surgery Retinal repair to right eye History of appendectomy History of bladder surgery Family History Family History Mother Cancer Social History Social History Social History: The patient lives with his and daughter. The patient had 4 children but 1 has . 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 He is Burkinan-speaking. He is listed as a full code. He denies any alcohol and denies any tobacco abuse or marijuana. Smoking status: Never smoker Alcohol intake: never Substance use: never Gender identity (if verbalized by the patient): Male Spiritual care concerns: No Meds Home Medications and Allergies Home Medications Medication Instructions Recorded Confirmed Type alcoh
[2021-06-09 14:16] VITALS: BP 131/43; PULSE 70; RESP 16; TEMP 36.6; O2SAT 100
--- NOTE | 2021-06-09 14:52 | PM.CNNEP ---
Assessment and Plan Assessment and plan (1) ESRD (end stage renal disease): Code(s): N18.6 - End stage renal disease Status: Chronic Assessment and Plan: plan next HD on Thursday follow electrolytes, volume status, and clearance (2) SBO (small bowel obstruction): Code(s): K56.609 - Unspecified intestinal obstruction, unspecified as to partial versus complete obstruction Status: Acute Assessment and Plan: Surgery recommendations noted NG tube in place NPO status follow fluid status (3) Hypertension: Code(s): I10 - Essential (primary) hypertension Status: Chronic Assessment and Plan: reasonable control at this time follow trend of hemodynamics (4) Anemia: Code(s): D64.9 - Anemia, unspecified Status: Acute Assessment and Plan: due to ESRD Epogen with HD follow H/H (5) Diabetes: Code(s): E11.9 - Type 2 diabetes mellitus without complications Status: Chronic Assessment and Plan: follow accuchecks glycemic control Will continue to follow. History of Present Illness Reason for Consult Consult date: 06/09/21 Reason for consult: end stage renal disease Chief Complaint Chief complaint: SBO History of Present Illness Narrative: The patient is a 81-year-old Latvian-speaking male with a past medical history as outlined below who presented to [facility] ER with complaints of abdominal pain. The patient went to his regularly scheduled outpatient dialysis clinic on Thursday and had his dialysis treatment without any significant issues or problems. However, later that night, he started having abdominal pain that kept him up all night. He was able to eat yesterday and since that time his head continue with generalized abdominal pain. He feels is that abdomen is distended and rates the pain as a 10/10 in severity. He reports no previous symptoms like this before and because the pain was continuing to progress, he came to the ER for further evaluation. Workup and evaluation emergency room demonstrated labs consistent with his known history of end-stage renal disease and a CT scan of the abdomen and pelvis demonstrated what appeared to be a partial small-bowel obstruction. Surgery was consulted given these findings and recommended an NG tube placement for decompression and subsequent admission to the hospital for observation/ further treatment. He was given some gentle IV fluids in the emergency room as well as IV antiemetics and subsequent admitted the hospital for further treatment. Renal consultation was requested due to his end-stage renal disease. The patient normally dialyzes on a Thursday schedule at [facility] under the care of Dr. Clif reeder. The patient was recently initiated on renal replacement therapy / dialysis on his last hospitalization here [facility] when he was admitted for a non ST elevation PR. His last dialysis treatment was on Thursday as far as I am aware this treatment was uneventful. His electrolytes are stable and he appears to have no evidence of volume overload. Currently, the patient still remains in significant discomfort regarding his abdominal pain. Review of Systems Review of Systems: Narrative: As per HPI. [facility] Past Medical History Medical History (Updated 06/09/21 @ 14:00 by Devorah Shane NP) BPH (benign prostatic hyperplasia) Coronary artery disease Diabetes ESRD (end stage renal disease) Hyperlipidemia Hypertension Kidney stones Myocardial infarction TIA (transient ischemic attack) Surgical History Surgical History H/O eye surgery Retinal repair to right eye History of appendectomy History of bladder surgery Family History Family History Mother Cancer Social History Social History (Reviewed 06/09/21 @ 12:45 by
--- NOTE | 2021-06-09 15:01 | PC.NURSE ---
This patient, Miguel Panda, was admitted to 3 [facility] Surg Room 302-01 on 06/09/21 @ 1400. Patient/family oriented to hospital policies and general routines including ID bracelet, bed and alarms, visiting hours, pain management, procedures, bathroom and other care routines, personal items, smoking policy, room service/diet, and visiting hours. Information on how to activate the Rapid Response Team has been discussed. Patient/Family are encouraged to report perceived risks to care and to ask questions if they do not understand what they are told or what they should do.
[2021-06-09] MEDS: SODIUM CHLORIDE 0.9% IV 1,000 ML 75 ML IV CONT (15:11)
[2021-06-09] MEDS: MORPHINE SULFATE (*CRX) 4 MG/ML INJ IV PUSH ×2 (19:04→22:55)
[2021-06-09 19:06] LABS: Glucose Point of Care 122 mg/dl (65-105)
[2021-06-09 22:00] VITALS: BP 138/56; PULSE 78; RESP 18; TEMP 36.2; O2SAT 100
[2021-06-09 22:07] VITALS: BMI 24.0
[2021-06-09 22:44] LABS: Glucose Point of Care 127 mg/dl (65-105)
[2021-06-10] MEDS: ENOXAPARIN 30 MG/0.3 ML SYRINGE SUB-Q (00:56)
[2021-06-10] MEDS: SODIUM CHLORIDE 0.9% IV 1,000 ML 75 ML IV CONT ×2 (04:33→18:00)
[2021-06-10 05:40] LABS: Glucose Point of Care 129 mg/dl (65-105)
[2021-06-10 06:00] VITALS: BP 132/53; PULSE 67; RESP 20; TEMP 36.6; O2SAT 98
[2021-06-10] MEDS: MORPHINE SULFATE (*CRX) 4 MG/ML INJ IV PUSH (06:23)
[2021-06-10 06:44] LABS: Glucose Point of Care 100 mg/dl (65-105)
[2021-06-10 07:02] LABS: Basophils Percent Auto 0.4 % (0.2-1.2); Eosinophils Absolute Auto 0.1 K/mm3 (0-0.3); Eosinophils Percent Auto 0.5 % (0-4.4); Hematocrit 29.2 % (42.0-52.0); Hemoglobin 9.3 g/dL (14.0-18.0); Immature Granulocyte Absolute 0.04 K/mm3 (0.00-0.031); Immature Granulocyte Percent A 0.4 % (0-0.5); Lymphocytes Absolute Auto 1.65 K/mm3 (0.9-3.2); Lymphocytes Percent Auto 17.9 % (18.3-44.2); Mean Corpuscular HGB Conc 31.8 g/dl (32-36); Mean Corpuscular Hemoglobin 30.5 pg (26-34); Mean Corpuscular Volume 95.7 fl (80-100); Mean Platelet Volume 10.9 fl (7.4-10.4); Monocytes Absolute Auto 0.8 K/mm3 (0.1-0.6); Monocytes Percent Auto 8.8 % (2.6-8.5); Neutrophils Absolute Auto 6.6 K/mm3 (1.3-6.7); Platelet Count Result 179 k/mm3 (150-375); Red Blood Count 3.05 M/mm3 (4.6-6.20); Red Cell Distribution Width 14.8 % (11.5-14.5); White Blood Count 9.2 K/mm3 (4.5-10.0)
[2021-06-10 07:10] LABS: Lactic Acid Reflex 1.1 mmol/L (0.7-2.1)
[2021-06-10 07:12] LABS: Alanine Aminotransferase 11 U/L (4-50); Albumin Level 3.3 g/dL (3.5-5.1); Alkaline Phosphatase 113 U/L (38-126); Anion Gap 4 mmol/L (8-16); Aspartate Amino Transferase 16 U/L (17-59); Bilirubin,Total 0.5 mg/dL (0.2-1.3); Blood Urea Nitrogen 36 mg/dL (9-20); Calcium 8.3 mg/dL (8.4-10.2); Carbon Dioxide 38 mmol/L (22-30); Chloride 98 mmol/L (98-107); Estimated CRCL calculation 10 ml/min; Estimated Glomerular Filt Rate 10; Glucose 120 mg/dL (65-110); Lipase 84 U/L (23-300); Magnesium 1.8 mg/dL (1.6-2.3); Sodium 140 mmol/L (137-145)
[2021-06-10 08:29] VITALS: O2SAT 96
--- NOTE | 2021-06-10 11:10 | PM.PNGS ---
Progress Note: A&P Assessment and Plan (1) SBO (small bowel obstruction): Code(s): K56.609 - Unspecified intestinal obstruction, unspecified as to partial versus complete obstruction Status: Acute Assessment and Plan: somewhat improved. Continue NG suction, IV fluids, serial labs, clinical exam and serial flap plates of the abdomen. Hopefully will resolve without surgery. (2) Chronic kidney disease (CKD), stage V: Code(s): N18.5 - Chronic kidney disease, stage 5 Status: Chronic (3) Non-ST elevation LA (NSTEMI): Code(s): I21.4 - Non-ST elevation (NSTEMI) myocardial infarction Status: Chronic (4) Diabetes: Code(s): E11.9 - Type 2 diabetes mellitus without complications Status: Chronic Subjective Subjective Date/Time Seen: 06/10/21 11:10 Patient reports: still having pain ( Not as bad as yesterday), no flatus, no bowel movement and afebrile Review of Systems Review of Systems: All systems reviewed & are unremarkable except as noted in HPI and below Constitutional: Constitutional: Denies chills, Denies fever(s), Denies headache(s) and Reports poor appetite Gastrointestinal: Gastrointestinal: Reports as per HPI, Reports abdominal pain, Denies heartburn and Denies nausea Exam Const: General: cooperative, comfortable, no acute distress, alert and awake Nutritional Appearance: average body habitus Limitations: language barrier GI: Inspection: non-distended and scar GI Palp: Yes Soft to palpation, Yes Tenderness to palpation present (GI) ( minimal tenderness noted), No Guarding due to palpation present (GI) and No Rebound tenderness present Auscultation: Hypoactive bowel sounds present Extrem: General: no calf tenderness and no edema Objective Data Vital Signs Vital Signs: Vital Signs - 24 hr 06/09/21 14:16 06/09/21 22:00 06/10/21 06:00 Temperature 36.6 C 36.2 C L 36.6 C Pulse Rate 70 78 67 Respiratory Rate 16 18 20 Blood Pressure 131/43 L 138/56 L 132/53 L Pulse Oximetry 100 100 98 06/10/21 08:29 Temperature Pulse Rate Respiratory Rate Blood Pressure Pulse Oximetry 96 Intake/Output Intake/Output: Intake & Output 06/07/21 06/08/21 06/09/21 06/10/21 23:59 23:59 23:59 23:59 Intake Total 0 1000 Output Total 250 0 Balance -250 1000 Meds/Results Medications: Active Medications Generic Name Dose Route Start Last Admin Trade Name Freq PRN Reason Stop Dose Admin Dextrose 12.5 gm 06/09/21 12:33 Dextrose 50% 25 Gm/50 Ml Syringe IV PUSH PRN PRN Hypoglycemia Protocol Glucagon 1 mg 06/09/21 12:33 Glucagon For Inj 1 Mg Vial IM PRN PRN Hypoglycemia Protocol Glucose 15 gm 06/09/21 12:33 Glucose Oral Gel 15 Gm Of Glucse In 37.5 Gm Tube PO PRN PRN Hypoglycemia Protocol Sodium Chloride 1,000 mls @ 75 mls/hr 06/09/21 11:35 06/10/21 04:33 Normal Saline Iv IV CONT 75 mls/hr .[id number] LEAH Administration Ceftriaxone Sodium/Dextrose 1 gm in 50 mls @ 100 mls/hr 06/10/21 12:00 Rocephin 1 Gm/D5w 50 Ml IVPB Q24H LEAH Acetaminophen 1,000 mg in 100 mls @ 400 mls/hr 06/09/21 12:30 Ofirmev 1,000 Mg Ivpb IVPB 06/10/21 12:31 Q6H PRN PAIN 4-6 Dextrose 1,000 mls @ 100 mls/hr 06/09/21 12:33 Dextrose 5% 1,000 Ml IVPB PRN PRN Hypoglycemia Protocol Insulin Aspart 2 - 5 units 06/09/21 12:00 06/10/21 06:25 Insulin Aspart (*Bkc) 100 Units/Ml SUB-Q Not Given Q6H LEAH Protocol Morphine Sulfate 4 mg 06/09/21 11:33 06/10/21 06:23 Morphine Sulfate (*Crx) 4 Mg/Ml Inj IV PUSH 4 mg Q2H PRN Administration Pain Rated 7-10 Ondansetron HCl 4 mg 06/09/21 12:31 Ondansetron Inj 4 Mg/2 Ml Vial IV PUSH Q6H PRN Nausea And Vomiting Radiology Results: ITS Impressions Abdomen/Pelvis CT 06/09/21 08:32 IMPRESSION: 1. Mildly dilated small bowel loops with decompressed distal small bowel, ileus versus
[2021-06-10 13:08] LABS: Glucose Point of Care 113 mg/dl (65-105)
--- NOTE | 2021-06-10 13:41 | PM.IMPN ---
Progress Note: A&P Assessment and Plan (1) SBO (small bowel obstruction): Code(s): K56.609 - Unspecified intestinal obstruction, unspecified as to partial versus complete obstruction Status: Acute Assessment and Plan: NG tube in place Surgery following, recommendations appreciated Pain management IV Supportive care (2) ESRD (end stage renal disease): Code(s): N18.6 - End stage renal disease Status: Chronic Assessment and Plan: HD TTS Nephrology following, plan for HD next Thursday Avoid nephrtoxins Follow renal panel (3) Abdominal pain: Code(s): R10.9 - Unspecified abdominal pain Status: Acute Assessment and Plan: / SBO Supportive care with pain managment (4) Chronic kidney disease (CKD), stage V: Code(s): N18.5 - Chronic kidney disease, stage 5 Status: Chronic Assessment and Plan: Treatment as above (5) BPH (benign prostatic hyperplasia): Code(s): N40.0 - Benign prostatic hyperplasia without lower urinary tract symptoms Status: Chronic Assessment and Plan: Resume home meds when appropriate (6) Hyperlipidemia: Code(s): E78.5 - Hyperlipidemia, unspecified Status: Chronic Assessment and Plan: Continue with atorvastatin (7) Diabetes: Code(s): E11.9 - Type 2 diabetes mellitus without complications Status: Chronic Assessment and Plan: Hgb A1c 5.9 Accu-Cheks every 6 hours SSI Monitor (8) Hypertension: Code(s): I10 - Essential (primary) hypertension Status: Chronic Assessment and Plan: Pt is NPO Holding antihypertensive Monitor (9) UTI (urinary tract infection): Code(s): N39.0 - Urinary tract infection, site not specified Status: Acute Assessment and Plan: UA+ Follow UC Continue Rocephin for now Subjective Date/time seen: 06/10/21 13:41 pt seen and evaluated; he dose endorse abdominal pain Review of Systems Review of Systems: All systems reviewed & are unremarkable except as noted in HPI and below Exam Const: General: no acute distress, alert and awake Orientation/consciousness: patient oriented x3 HENMT: Head: normocephalic and atraumatic Ears: hearing grossly normal bilaterally and external ears normal Face and sinus: face symmetric and other (NG tube in place) Mouth: Yes Normal oral and palatal mucosa present Eyes: Pupils: Equal, round and reactive pupils present EOM: EOMs intact bilaterally Neck: Neck: full ROM, trachea midline and no JVD Thyroid: thyroid normal Chest: Chest palpation & inspection: normal inspection of the chest Resp: Effort & Inspection: normal respiratory effort Auscultation: clear to auscultation bilaterally Cardio: Jugular venous distension: no JVD Rate: regular rate Rhythm: regular rhythm Heart sounds: S1 normal heart sound present and S2 normal heart sound present GI: Inspection: normal to inspection GI Palp: Yes abdominal tenderness and Yes Soft to palpation : General: Yes no CVA tenderness Back/Spine/Pelvis: Back: no CVA tenderness Skin: General skin exam: normal color Rashes: no rashes Neuro: General: patient oriented x3 and CN's II-XI intact bilaterally Cranial nerves: Yes Equal, round and reactive pupils present Speech: normal speech Psych: Appearance: grossly normal Affect: normal affect Judgement: Good judgement present (Psych) Objective Data Vital Signs Vital Signs: Vital Signs - 24 hr 06/09/21 14:16 06/09/21 22:00 06/10/21 06:00 Temperature 36.6 C 36.2 C L 36.6 C Pulse Rate 70 78 67 Respiratory Rate 16 18 20 Blood Pressure 131/43 L 138/56 L 132/53 L Pulse Oximetry 100 100 98 06/10/21 08:29 Temperature Pulse Rate Respiratory Rate Blood Pressure Pulse Oximetry 96 Intake/Output Intake/Output: Intake & Output 06/07/21 06/08/21 06/09/21 06/10/21 23:59 23:59 23:59 23:59 Intake Total 0 1000 Output Total 250 0 Balance
[2021-06-10 14:00] VITALS: BP 132/55; PULSE 69; RESP 20; TEMP 36.3; O2SAT 99
--- NOTE | 2021-06-10 16:35 | PM.PNNEP ---
Progress Note: A&P Assessment and Plan (1) ESRD (end stage renal disease): Code(s): N18.6 - End stage renal disease Status: Chronic Assessment and Plan: plan next HD tomorrow volume status looks okay Potassium is doing well (2) SBO (small bowel obstruction): Code(s): K56.609 - Unspecified intestinal obstruction, unspecified as to partial versus complete obstruction Status: Acute Assessment and Plan: Surgery recommendations noted NG tube in place NPO status less uncomfortable today follow fluid status (3) Hypertension: Code(s): I10 - Essential (primary) hypertension Status: Chronic Assessment and Plan: systolic in the 130s (4) Anemia: Code(s): D64.9 - Anemia, unspecified Status: Acute Assessment and Plan: due to ESRD Epogen with HD check hemoglobin tomorrow (5) Diabetes: Code(s): E11.9 - Type 2 diabetes mellitus without complications Status: Chronic Assessment and Plan: on Accu-Cheks and sliding-scale insulin Subjective Date/time seen: 06/10/21 16:35 Interval history: Miguel is about the same today. Belly pain is better. Review of Systems Cardiovascular: Cardiovascular: Reports no additional cardiovascular complaints Respiratory: Respiratory: Reports no additional respiratory complaints Gastrointestinal: Gastrointestinal: Reports no additional gastrointestinal complaints Genitourinary: Genitourinary: Reports no additional male genitourinary complaints Exam Narrative: Exam Narrative: WDWN in NAD skin no rash head ncat lungs clear cor reg no rub abd BS+ nontender and soft but mildly tender ext no edema. Objective Data Vital Signs Vital Signs: Vital Signs - 24 hr 06/09/21 22:00 06/10/21 06:00 06/10/21 08:29 Temperature 36.2 C L 36.6 C Pulse Rate 78 67 Respiratory Rate 18 20 Blood Pressure 138/56 L 132/53 L Pulse Oximetry 100 98 96 06/10/21 14:00 Temperature 36.3 C L Pulse Rate 69 Respiratory Rate 20 Blood Pressure 132/55 L Pulse Oximetry 99 Intake/Output Intake/Output: Intake & Output 06/07/21 06/08/21 06/09/21 06/10/21 23:59 23:59 23:59 23:59 Intake Total 0 1000 Output Total 250 0 Balance -250 1000 Meds/Results Medications: Active Medications Generic Name Dose Route Start Last Admin Trade Name Freq PRN Reason Stop Dose Admin Dextrose 12.5 gm 06/09/21 12:33 Dextrose 50% 25 Gm/50 Ml Syringe IV PUSH PRN PRN Hypoglycemia Protocol Enoxaparin Sodium 30 mg 06/11/21 09:00 Enoxaparin 30 Mg/0.3 Ml Syringe SUB-Q DAILY LEAH Glucagon 1 mg 06/09/21 12:33 Glucagon For Inj 1 Mg Vial IM PRN PRN Hypoglycemia Protocol Glucose 15 gm 06/09/21 12:33 Glucose Oral Gel 15 Gm Of Glucse In 37.5 Gm Tube PO PRN PRN Hypoglycemia Protocol Sodium Chloride 1,000 mls @ 75 mls/hr 06/09/21 11:35 06/10/21 04:33 Normal Saline Iv IV CONT 75 mls/hr .[id number] LEAH Administration Ceftriaxone Sodium/Dextrose 1 gm in 50 mls @ 100 mls/hr 06/10/21 12:00 06/10/21 11:28 Rocephin 1 Gm/D5w 50 Ml IVPB 100 mls/hr Q24H LEAH Administration Dextrose 1,000 mls @ 100 mls/hr 06/09/21 12:33 Dextrose 5% 1,000 Ml IVPB PRN PRN Hypoglycemia Protocol Insulin Aspart 2 - 5 units 06/09/21 12:00 06/10/21 13:08 Insulin Aspart (*Bkc) 100 Units/Ml SUB-Q Not Given Q6H LEAH Protocol Morphine Sulfate 4 mg 06/09/21 11:33 06/10/21 06:23 Morphine Sulfate (*Crx) 4 Mg/Ml Inj IV PUSH 4 mg Q2H PRN Administration Pain Rated 7-10 Ondansetron HCl 4 mg 06/09/21 12:31 Ondansetron Inj 4 Mg/2 Ml Vial IV PUSH Q6H PRN Nausea And Vomiting Radiology Results: ITS Impressions Abdomen/Pelvis CT 06/09/21 08:32 IMPRESSION: 1. Mildly dilated small bowel loops with decompressed distal small bowel, ileus versus obstruction. 2. Mildly distended gall
[2021-06-10 18:00] LABS: Glucose Point of Care 109 mg/dl (65-105)
[2021-06-10 22:00] VITALS: BP 137/61; PULSE 82; RESP 18; TEMP 36.4; O2SAT 100
[2021-06-10 23:40] LABS: Glucose Point of Care 102 mg/dl (65-105)
[2021-06-11] VITALS (13 sets, daily range): BP systolic 127–149; BP diastolic 54–64; PULSE 69–84; RESP 12–20; TEMP 36.3–37.7; O2SAT 95–100
[2021-06-11 06:31] LABS: Hematocrit 28.5 % (42.0-52.0); Hemoglobin 8.7 g/dL (14.0-18.0); Mean Corpuscular HGB Conc 30.5 g/dl (32-36); Mean Corpuscular Hemoglobin 29.4 pg (26-34); Mean Corpuscular Volume 96.3 fl (80-100); Mean Platelet Volume 10.8 fl (7.4-10.4); Platelet Count Result 165 k/mm3 (150-375); Red Blood Count 2.96 M/mm3 (4.6-6.20); Red Cell Distribution Width 14.6 % (11.5-14.5); White Blood Count 7.5 K/mm3 (4.5-10.0)
[2021-06-11 06:40] LABS: Glucose Point of Care 110 mg/dl (65-105)
[2021-06-11 06:48] LABS: Albumin Level 2.8 g/dL (3.5-5.1); Anion Gap 8 mmol/L (8-16); Blood Urea Nitrogen 42 mg/dL (9-20); Calcium 8.1 mg/dL (8.4-10.2); Carbon Dioxide 33 mmol/L (22-30); Chloride 100 mmol/L (98-107); Estimated CRCL calculation 10 ml/min; Estimated Glomerular Filt Rate 9; Glucose 102 mg/dL (65-110); Phosphorus 4.8 mg/dL (2.5-4.5); Potassium 3.8 mmol/L (3.4-5.0); Sodium 141 mmol/L (137-145)
[2021-06-11] MEDS: SODIUM CHLORIDE 0.9% IV 1,000 ML 75 ML IV CONT (08:19)
--- NOTE | 2021-06-11 11:12 | PM.PNNEP ---
Progress Note: A&P Assessment and Plan (1) ESRD (end stage renal disease): Code(s): N18.6 - End stage renal disease Status: Chronic Assessment and Plan: HD today volume status looks okay Potassium is doing well (2) SBO (small bowel obstruction): Code(s): K56.609 - Unspecified intestinal obstruction, unspecified as to partial versus complete obstruction Status: Acute Assessment and Plan: Surgery recommendations noted trying to avoid surgery NPO, NGT follow fluid status (3) Hypertension: Code(s): I10 - Essential (primary) hypertension Status: Chronic Assessment and Plan: systolic in the 130s and 140s creeping up a bit? will folow. fold in bp meds if it rises further (4) Anemia: Code(s): D64.9 - Anemia, unspecified Status: Acute Assessment and Plan: due to ESRD Epogen with HD hb up and down around 9 (5) Diabetes: Code(s): E11.9 - Type 2 diabetes mellitus without complications Status: Chronic Assessment and Plan: on Accu-Cheks and sliding-scale insulin Subjective Date/time seen: 06/11/21 11:12 Interval history: Miguel is about the same today. no belly issues right now Exam Narrative: Exam Narrative: WDWN in NAD skin no rash head ncat lungs clear bilaterally cor reg no rub abd BS+ nontender and soft but mildly tender ext no edema or cyanosis. Objective Data Vital Signs Vital Signs: Vital Signs - 24 hr 06/10/21 14:00 06/10/21 22:00 06/11/21 06:00 Temperature 36.3 C L 36.4 C 36.3 C L Pulse Rate 69 82 76 Respiratory Rate 20 18 20 Blood Pressure 132/55 L 137/61 145/59 H Pulse Oximetry 99 100 98 Intake/Output Intake/Output: Intake & Output 06/08/21 06/09/21 06/10/21 06/11/21 23:59 23:59 23:59 23:59 Intake Total 0 0 1000 Output Total 250 150 50 Balance -250 1900 950 Meds/Results Medications: Active Medications Generic Name Dose Route Start Last Admin Trade Name Freq PRN Reason Stop Dose Admin Dextrose 12.5 gm 06/09/21 12:33 Dextrose 50% 25 Gm/50 Ml Syringe IV PUSH PRN PRN Hypoglycemia Protocol Enoxaparin Sodium 30 mg 06/11/21 09:00 Enoxaparin 30 Mg/0.3 Ml Syringe SUB-Q DAILY LEAH Epoetin Lucas-epbx 10,000 units 06/11/21 09:00 Epoetin Lucas-Epbx 10,000 Units/Ml Vial IV PUSH TUTHSA LEAH Glucagon 1 mg 06/09/21 12:33 Glucagon For Inj 1 Mg Vial IM PRN PRN Hypoglycemia Protocol Glucose 15 gm 06/09/21 12:33 Glucose Oral Gel 15 Gm Of Glucse In 37.5 Gm Tube PO PRN PRN Hypoglycemia Protocol Sodium Chloride 1,000 mls @ 75 mls/hr 06/09/21 11:35 06/11/21 08:19 Normal Saline Iv IV CONT 75 mls/hr .[id number] LEAH Administration Ceftriaxone Sodium/Dextrose 1 gm in 50 mls @ 100 mls/hr 06/10/21 12:00 06/10/21 11:58 Rocephin 1 Gm/D5w 50 Ml IVPB Infused Q24H LEAH Infusion Dextrose 1,000 mls @ 100 mls/hr 06/09/21 12:33 Dextrose 5% 1,000 Ml IVPB PRN PRN Hypoglycemia Protocol Insulin Aspart 2 - 5 units 06/09/21 12:00 06/11/21 07:13 Insulin Aspart (*Bkc) 100 Units/Ml SUB-Q Not Given Q6H [facility] Protocol Morphine Sulfate 4 mg 06/09/21 11:33 06/10/21 06:23 Morphine Sulfate (*Crx) 4 Mg/Ml Inj IV PUSH 4 mg Q2H PRN Administration Pain Rated 7-10 Ondansetron HCl 4 mg 06/09/21 12:31 Ondansetron Inj 4 Mg/2 Ml Vial IV PUSH Q6H PRN Nausea And Vomiting Radiology Results: ITS Impressions Abdomen/Pelvis CT 06/09/21 08:32 IMPRESSION: 1. Mildly dilated small bowel loops with decompressed distal small bowel, ileus versus obstruction. 2. Mildly distended gallbladder which could be due to fasting state. 3. Stable staghorn calculus of the right kidney and multiple nonobstructing right kidney stones. Abdomen X-Ray 06/11/21 09:44 IMPRESSION: 1. Small bowel obstruction. Labs Labs: Laboratory Re
[2021-06-11 12:06] LABS: Glucose Point of Care 98 mg/dl (65-105)
--- NOTE | 2021-06-11 12:33 | WPDANESEPPF ---
Anes - Initial Pre Proc Eval Procedure: Operation Date: 06/11/21 14:00 Proposed Procedures p Exploratory Laparotomy for Small Bowel Obstruction - Panfilo Velásquez MD Date/Time: 06/11/21 12:33 Surgeon: Da Amador MD Pre Op Diagnosis: SBO Patient Data Age: 81 Gender: M Height: 1.78 m Weight: 75.8 kg Last Vital Signs Temp 36.3 C L 06/11/21 06:00 Pulse 76 06/11/21 06:00 Resp 20 06/11/21 06:00 BP 145/59 H 06/11/21 06:00 Pulse Ox 98 06/11/21 06:00 Allergies Allergy/AdvReac Type Severity Reaction Status Date / Time No Known Allergies Allergy Verified 06/09/21 14:59 Home Medications Medication Instructions Recorded Confirmed Type amlodipine 5 mg PO DAILY 05/01/21 06/09/21 History atorvastatin 80 mg PO DAILY 05/01/21 06/09/21 History ergocalciferol (vitamin D2) 50,000 unit PO DAILY 05/01/21 06/09/21 History [Vitamin D2] ferrous sulfate [FeroSul] 650 mg PO BID 05/01/21 06/09/21 History latanoprost 2 drp EACH EYE HS 05/01/21 06/09/21 History nystatin 1 unit TOPICAL DAILY 05/01/21 06/09/21 History sevelamer carbonate [Renvela] 100 mg PO TID 05/01/21 06/09/21 History tamsulosin [Flomax] 0.4 mg PO DAILY 05/01/21 06/09/21 History timolol maleate 2 drp EACH EYE BID 05/01/21 06/09/21 History aspirin 81 mg PO DAILY 06/09/21 06/09/21 History carvedilol 12.5 mg PO BID 06/09/21 06/09/21 History clopidogrel 75 mg PO DAILY 06/09/21 06/09/21 History Laboratory Tests 06/10/21 06/10/21 06/10/21 13:02 17:57 23:36 WBC RBC Hgb Hct MCV MCH MCHC RDW Plt Count MPV Sodium Potassium Chloride Carbon Dioxide Anion Gap BUN Creatinine Estim Creat Clear Calc Estimated GFR Glucose POC Capillary Glucose 113 mg/dl H mg/dl 109 mg/dl H mg/dl 102 mg/dl mg/dl (65-105) (65-105) (65-105) Calcium Phosphorus Albumin 06/11/21 06/11/21 06/11/21 05:36 05:36 06:01 WBC 7.5 K/mm3 K/mm3 (4.5-10.0) RBC 2.96 M/mm3 L M/mm3 (4.6-6.20) Hgb 8.7 g/dL L g/dL (14.0-18.0) Hct 28.5 % L % (42.0-52.0) MCV 96.3 fl fl (80-100) MCH 29.4 pg pg (26-34) MCHC 30.5 g/dl L g/dl (32-36) RDW 14.6 % H % (11.5-14.5) Plt Count 165 k/mm3 k/mm3 (150-375) MPV 10.8 fl H fl (7.4-10.4) Sodium 141 mmol/L mmol/L (137-145) Potassium 3.8 mmol/L mmol/L (3.4-5.0) Chloride 100 mmol/L mmol/L (98-107) Carbon Dioxide 33 mmol/L H mmol/L (22-30) Anion Gap 8 mmol/L mmol/L (8-16) BUN 42 mg/dL H mg/dL (9-20) Creatinine 5.80 mg/dL H mg/dL (0.7-1.3) Estim Creat Clear Calc 10 ml/min ml/min Estimated GFR 9 L (59 - ) Glucose 102 mg/dL mg/dL (65-110) POC Capillary Glucose 110 mg/dl H mg/dl (65-105) Calcium 8.1 mg/dL L mg/dL (8.4-10.2) Phosphorus 4.8 mg/dL H mg/dL (2.5-4.5) Albumin 2.8 g/dL L g/dL (3.5-5.1) 06/11/21 11:54 WBC RBC Hgb Hct MCV MCH MCHC RDW Plt Count MPV Sodium Potassium Chloride Carbon Dioxide Anion Gap BUN Creatinine Estim Creat Clear Calc Estimated GFR Glucose POC Capillary Glucose 98 mg/dl mg/dl (65-105) Calcium Phosphorus Albumin Patient hx anesthesia problems: none Family hx anesthesia problems: none PMFSH Past Medical History Medical History (Updated 06/10/21 @ 14:04 by Jeanna Ballard APN-C) BPH (benign prostatic hyperplasia) Coronary artery disease Diabetes ESRD (end stage renal disease) Hyperlip
--- NOTE | 2021-06-11 12:51 | PC.NURSE ---
To OR per bed, IV 20 RT AC. Report given to Jana.
[2021-06-11] MEDS: SODIUM CHLORIDE 0.9% IV 500 ML 30 ML IV CONT (13:50)
--- NOTE | 2021-06-11 14:07 | WPDHPUPDATE1 ---
History and Physical Update Update Date/Time: 06/11/21 14:07 Patient showing no signs of resolution of sbo. Discussed with patient and with his daughter. Plan to proceed with laparotomy for sbo. History and Physical has been reviewed, including an updated exam of the patient. There are NO changes in the patient's condition. Risks, benefits, and alternatives have been discussed and questions answered. Patient agrees to proceed with procedure.
[2021-06-11] MEDS: ceFAZolin 2 GM/D5W 50 ML 2 GM/50 ML BAG IVPB (14:12)
--- NOTE | 2021-06-11 15:43 | P.OP_ITS ---
Procedure Note - Detailed Date of Procedure 06/11/21 Pre-op Diagnosis SBO Post-op Diagnosis same Procedure Performed Adhesiolysis for small bowel obstruction Surgeon Panfilo Velásquez MD Electronic System Engineer Brittney Ahumada [facility] Anesthesia general Indications patient presented with right lower quadrant abdominal pain nausea and vomiting. He has had a history of previous appendectomy in [place] 15 years ago. Imaging showed small bowel obstruction. Despite NG suction IV fluids and analgesics, the bowel obstruction is not resolving at all. He is taken to surgery now for exploratory laparotomy for small-bowel obstruction Findings the point of obstruction was in the proximal ileum due to an anterior abdominal wall adhesion. No volvulus or other abnormalities were appreciated. Description of Procedure The patient was taken to surgery and induced into general anesthesia. The abdomen is prepped and draped. We marked an ellipse around the right paramedian scar from previous appendectomy. This scar was excised and discarded. Dissection was continued down to the fascia. We found the area where the previous fascial incision had been made. We divided the anterior and then posterior rectus fascia along this line. We entered the peritoneal cavity. An adhesion of sigmoid colon epiploica to the right lateral abdominal wall was noted. This was taken down. The sigmoid was then positioned out of the field to the patient's left. Dilated and decompressed small bowel was evident. I followed the decompressed small bowel 1st to the ligament of Treitz. I then followed it on distally. This led to finding a couple of anterior abdominal wall adhesions 1 of which appeared to be the point of obstruction. These were exposed and then carefully taken down sharply. I then continued following the bowel retrograde and found the area where the adhesion had been. There was an obvious transition point here. The serosa had been injured but no mucosal injury noted. This was small and was simply oversewn with 4 0 silk interrupted Lembert sutures. The serosal injury at been due to the adhesion. This looked good. I then followed the small bowel retrograde well up into the proximal jejunum. No other signs of obstruction were noted. The NG tube was checked and was in good position in the stomach. I reach checked again the area of the obstruction and it looked satisfactory. I then found the sigmoid colon again and removed the long epiploica that had been adherent at the beginning of the case. We then placed the bowel back in its general anatomic location. The posterior rectus fascia was closed with running 0 Vicryl suture. The anterior rectus fascia was closed with bidirectional running 0 PDS suture. The subcu was closed with interrupted 3 0 Vicryl suture. The skin was closed with сергей. Wound was dressed with Xeroform gauze fluffs and Medipore tape. Patient was awakened and taken to recovery in good condition. Sponge and needle counts were correct x2. Estimated Blood Loss 10 Urine Output 0 Drains Yes ( Nasogastric tube) Packing No Pathology none sent Complications None Condition stable Disposition PACU
[2021-06-11 16:09] LABS: Glucose Point of Care 110 mg/dl (65-105)
--- NOTE | 2021-06-11 16:20 | SUR.PHASEI ---
Simple mask removed at 1620.
--- NOTE | 2021-06-11 17:25 | PC.NURSE ---
Returned from OR per bed. Report received from
--- NOTE | 2021-06-11 17:34 | PM.IMPN ---
Progress Note: A&P Assessment and Plan (1) SBO (small bowel obstruction): Code(s): K56.609 - Unspecified intestinal obstruction, unspecified as to partial versus complete obstruction Status: Acute Assessment and Plan: NG tube in place Plan for exploratory laparotomy Surgery following, recommendations appreciated Pain management IV Supportive care (2) ESRD (end stage renal disease): Code(s): N18.6 - End stage renal disease Status: Chronic Assessment and Plan: HD TTS Nephrology following, plan for HD next Thursday Avoid nephrtoxins Follow renal panel (3) Abdominal pain: Code(s): R10.9 - Unspecified abdominal pain Status: Acute Assessment and Plan: / SBO Supportive care with pain management (4) Chronic kidney disease (CKD), stage V: Code(s): N18.5 - Chronic kidney disease, stage 5 Status: Chronic Assessment and Plan: Treatment as above (5) BPH (benign prostatic hyperplasia): Code(s): N40.0 - Benign prostatic hyperplasia without lower urinary tract symptoms Status: Chronic Assessment and Plan: Resume home meds when appropriate (6) Hyperlipidemia: Code(s): E78.5 - Hyperlipidemia, unspecified Status: Chronic Assessment and Plan: Continue with atorvastatin (7) Diabetes: Code(s): E11.9 - Type 2 diabetes mellitus without complications Status: Chronic Assessment and Plan: Hgb A1c 5.9 Accu-Cheks every 6 hours SSI Monitor (8) Hypertension: Code(s): I10 - Essential (primary) hypertension Status: Chronic Assessment and Plan: Pt is NPO Holding antihypertensive Monitor (9) UTI (urinary tract infection): Code(s): N39.0 - Urinary tract infection, site not specified Status: Acute Assessment and Plan: UA+ Follow UC s/p Rocephin Subjective Date/time seen: 06/11/21 10:34 pt seen and evaluated; the patient continues with generalized abdominal pain; he states the pain is better than yesterday; he is not passing gas Review of Systems Review of Systems: All systems reviewed & are unremarkable except as noted in HPI and below Exam Const: General: no acute distress, alert and awake Orientation/consciousness: patient oriented x3 HENMT: Head: normocephalic and atraumatic Ears: hearing grossly normal bilaterally and external ears normal Face and sinus: face symmetric and other (NG tube in place) Mouth: Yes Normal oral and palatal mucosa present Eyes: Pupils: Equal, round and reactive pupils present EOM: EOMs intact bilaterally Neck: Neck: full ROM, trachea midline and no JVD Thyroid: thyroid normal Chest: Chest palpation & inspection: normal inspection of the chest Resp: Effort & Inspection: normal respiratory effort Auscultation: clear to auscultation bilaterally Cardio: Jugular venous distension: no JVD Rate: regular rate Rhythm: regular rhythm Heart sounds: S1 normal heart sound present and S2 normal heart sound present GI: Inspection: normal to inspection GI Palp: Yes Soft to palpation Auscultation: normal bowel sounds : General: Yes no CVA tenderness Back/Spine/Pelvis: Back: no CVA tenderness Skin: General skin exam: normal color Rashes: no rashes Neuro: General: patient oriented x3 and CN's II-XI intact bilaterally Cranial nerves: Yes Equal, round and reactive pupils present Speech: normal speech Psych: Appearance: grossly normal Affect: normal affect Judgement: Good judgement present (Psych) Objective Data Vital Signs Vital Signs: Vital Signs - 24 hr 06/10/21 22:00 06/11/21 06:00 06/11/21 13:24 Temperature 36.4 C 36.3 C L 36.8 C Pulse Rate 82 76 76 Respiratory Rate 18 20 Blood Pressure 137/61 145/59 H 149/56 H Pulse Oximetry 100 98 99 06/11/21 15:50 06/11/21 16:05 06/11/21 16:20 Temperature 37.7 C H Pulse Rate 84 73 74 Respiratory Rate 18 14 12 Blood Pressure 136/61 135/59 L 133/56
[2021-06-11] MEDS: TIMOLOL MALEATE 0.5% OP SOLN 5 ML BOTTLE 2 DROP EACH EYE (17:37)
[2021-06-11 17:46] LABS: Glucose Point of Care 121 mg/dl (65-105)
[2021-06-11] MEDS: ENOXAPARIN 30 MG/0.3 ML SYRINGE SUB-Q (18:03)
[2021-06-11] MEDS: FAMOTIDINE 20 MG/2 ML VIAL IV PUSH (20:35)
[2021-06-11] MEDS: LATANOPROST 0.005% OP SOLN 2.5 ML BTL 2 DROP EACH EYE (20:35)
[2021-06-11 23:45] LABS: Glucose Point of Care 135 mg/dl (65-105)
[2021-06-12] VITALS (8 sets, daily range): BP systolic 129–141; BP diastolic 56–60; PULSE 66–84; RESP 16–18; TEMP 36.3–36.6; O2SAT 98–99
[2021-06-12] MEDS: IBUPROFEN IV 400 MG in SODIUM CHLORIDE 0.9% IV 100 ML 200 MG IVPB (01:06)
[2021-06-12] MEDS: SODIUM CHLORIDE 0.9% IV 1,000 ML 75 ML IV CONT ×2 (01:09→17:46)
[2021-06-12 06:27] LABS: Glucose Point of Care 150 mg/dl (65-105)
[2021-06-12 06:55] LABS: Hematocrit 31.1 % (42.0-52.0); Hemoglobin 9.6 g/dL (14.0-18.0); Mean Corpuscular HGB Conc 30.9 g/dl (32-36); Mean Corpuscular Hemoglobin 30.1 pg (26-34); Mean Corpuscular Volume 97.5 fl (80-100); Mean Platelet Volume 10.9 fl (7.4-10.4); Platelet Count Result 180 k/mm3 (150-375); Red Blood Count 3.19 M/mm3 (4.6-6.20); Red Cell Distribution Width 14.4 % (11.5-14.5); White Blood Count 9.1 K/mm3 (4.5-10.0)
[2021-06-12 07:29] LABS: Albumin Level 2.9 g/dL (3.5-5.1); Anion Gap 10 mmol/L (8-16); Blood Urea Nitrogen 59 mg/dL (9-20); Calcium 8.1 mg/dL (8.4-10.2); Carbon Dioxide 27 mmol/L (22-30); Chloride 106 mmol/L (98-107); Estimated CRCL calculation 10 ml/min; Estimated Glomerular Filt Rate 9; Glucose 148 mg/dL (65-110); Phosphorus 6.8 mg/dL (2.5-4.5); Potassium 4.1 mmol/L (3.4-5.0); Sodium 143 mmol/L (137-145)
[2021-06-12] MEDS: TIMOLOL MALEATE 0.5% OP SOLN 5 ML BOTTLE 2 DROP EACH EYE ×2 (08:38→17:46)
[2021-06-12] MEDS: FAMOTIDINE 20 MG/2 ML VIAL IV PUSH ×2 (08:39→20:06)
[2021-06-12] MEDS: ENOXAPARIN 30 MG/0.3 ML SYRINGE SUB-Q (08:39)
[2021-06-12] MEDS: MICONAZOLE NITRATE 2% CREAM 30 GM TUBE 1 APPLIC TOPICAL (08:39)
[2021-06-12] MEDS: CLOPIDOGREL BISULFATE 75 MG TABLET PO (08:43)
--- NOTE | 2021-06-12 09:19 | PM.PNGS ---
Progress Note: A&P Assessment and Plan (1) SBO (small bowel obstruction): Code(s): K56.609 - Unspecified intestinal obstruction, unspecified as to partial versus complete obstruction Status: Acute Assessment and Plan: POD1 adhesiolysis. Await return of bowel function. Continue NG tube with bowel rest, IV fluids, and analgesics. Monitor with serial abdominal exams and repeat labs tomorrow. Encouraged increasing activity and ambulating in the halls. (2) Chronic kidney disease (CKD), stage V: Code(s): N18.5 - Chronic kidney disease, stage 5 Status: Chronic Assessment and Plan: Nephrology following for hemodialysis. (3) Non-ST elevation MD (NSTEMI): Code(s): I21.4 - Non-ST elevation (NSTEMI) myocardial infarction Status: Chronic Assessment and Plan: Continue cardiac monitoring. Telemetry reviewed with no events or acute changes. (4) Diabetes: Code(s): E11.9 - Type 2 diabetes mellitus without complications Status: Chronic Additional Plan Discussed the plan of care with Dr. Velásquez. Subjective Subjective Date/Time Seen: 06/12/21 09:00 Post Op day: 1 (adhesiolysis) Patient reports: no flatus and no bowel movement Interval history: Patient seen today. No Stratus available at the time of my exam, but the nurse is at the bedside and reportedly used the Stratus to ask the patient questions prior to my arrival this morning. Per the nurse, he reports only mild pain that is controlled this morning, no nausea or bloating, no flatus yet. He had no other specific complaints at that time. Exam Const: General: comfortable, no acute distress, alert and awake Resp: Effort & Inspection: normal respiratory effort Auscultation: clear to auscultation bilaterally Cardio: Rate: regular rate Rhythm: regular rhythm GI: Inspection: incision (RLQ dressing clean and dry) and other (mildly distended) GI Palp: Yes Soft to palpation, Yes Tenderness to palpation present (GI) and No Guarding due to palpation present (GI) Auscultation: Hypoactive bowel sounds present Neuro: General: moves all extremities and no focal motor deficits Extrem: General: no clubbing, cyanosis or edema and no calf tenderness Objective Data Vital Signs Vital Signs: Vital Signs - 24 hr 06/11/21 13:24 06/11/21 15:50 06/11/21 16:05 Temperature 98.3 F 99.8 F H Pulse Rate 76 84 73 Respiratory Rate 18 14 Blood Pressure 149/56 H 136/61 135/59 L Pulse Oximetry 99 100 100 06/11/21 16:20 06/11/21 16:35 06/11/21 16:50 Temperature Pulse Rate 74 71 72 Respiratory Rate 12 13 12 Blood Pressure 133/56 L 131/54 L 133/60 Pulse Oximetry 100 97 97 06/11/21 17:05 06/11/21 17:25 06/11/21 17:40 Temperature 98.5 F 97.7 F 97.8 F Pulse Rate 70 73 72 Respiratory Rate 12 14 16 Blood Pressure 128/64 132/54 L 127/56 L Pulse Oximetry 97 96 96 06/11/21 18:10 06/11/21 19:10 06/11/21 20:00 Temperature 97.9 F 97.5 F L Pulse Rate 69 71 76 Respiratory Rate 16 14 Blood Pressure 127/55 L 134/58 L Pulse Oximetry 95 98 06/12/21 00:00 06/12/21 04:00 06/12/21 08:18 Temperature 97.4 F L 97.7 F 97.3 F L Pulse Rate 71 71 69 Respiratory Rate 16 18 18 Blood Pressure 130/57 L 130/60 133/56 L Pulse Oximetry 98 99 99 Intake/Output Intake/Output: Intake & Output 06/09/21 06/10/21 06/11/21 06/12/21 23:59 23:59 23:59 23:59 Intake Total 0 0 2230 304 Output Total 250 150 152 140 Balance -250 1900 2078 164 Meds/Results Medications: Active Medications Generic Name Dose Route Start Last Admin Trade Name Freq PRN Reason Stop Dose Admin Clopidogrel Bisulfate 75 mg 06/12/21 09:00 06/12/21 08:43 Clopidogrel Bisulfate 75 Mg Tablet PO 75 mg DAILY LEAH Administration Dextrose 12.5 gm 06/09/21 12:33 Dextrose 50% 25 Gm/50 Ml Syringe IV PUSH PRN PRN Hypoglycemia Protocol Enoxaparin Sodium 30 mg 06/11/21 09:00 06/12/21 08:39 Enoxaparin 30 Mg/0.3 Ml Syringe SUB-Q 30 m
[2021-06-12 11:44] LABS: Glucose Point of Care 136 mg/dl (65-105)
--- NOTE | 2021-06-12 13:08 | WPDANESPN ---
Anes - Prog Note Post-Op Date/Time: 06/12/21 13:08 Cardiovascular status: normal Respiratory status: normal Airway patency: baseline Mental status: baseline Post-Op hydration status: normal and other (NG in place) Vital Signs: Last Vital Signs Temp 36.3 C L 06/12/21 12:11 Pulse 79 06/12/21 12:11 Resp 18 06/12/21 12:11 BP 139/58 L 06/12/21 12:11 Pulse Ox 99 06/12/21 12:11 Pain Score (VAS): 12/02 I/O: Intake & Output 06/11/21 06/12/21 06/12/21 23:59 07:59 15:59 Intake Total 1030 304 Output Total 102 140 Balance 928 164 Laboratory Tests 06/12/21 06:01 06/12/21 06:01 06/11/21 06/11/21 06/11/21 16:07 17:41 23:22 WBC RBC Hgb Hct MCV MCH MCHC RDW Plt Count MPV Sodium Potassium Chloride Carbon Dioxide Anion Gap BUN Creatinine Estim Creat Clear Calc Estimated GFR Glucose POC Capillary Glucose 110 H 121 H 135 H Calcium Phosphorus Albumin 06/12/21 06/12/21 06/12/21 06:01 06:01 06:01 WBC 9.1 RBC 3.19 L Hgb 9.6 L Hct 31.1 L MCV 97.5 MCH 30.1 MCHC 30.9 L RDW 14.4 Plt Count 180 MPV 10.9 H Sodium 143 Potassium 4.1 Chloride 106 Carbon Dioxide 27 Anion Gap 10 BUN 59 H D Creatinine 5.90 H Estim Creat Clear Calc 10 Estimated GFR 9 L Glucose 148 H POC Capillary Glucose 150 H Calcium 8.1 L Phosphorus 6.8 H Albumin 2.9 L 06/12/21 11:39 WBC RBC Hgb Hct MCV MCH MCHC RDW Plt Count MPV Sodium Potassium Chloride Carbon Dioxide Anion Gap BUN Creatinine Estim Creat Clear Calc Estimated GFR Glucose POC Capillary Glucose 136 H Calcium Phosphorus Albumin Microbiology 06/09/21 09:39 Urine Clean Catch Urine Culture - Final Enterococcus species Post-procedural complaints: none Patient Feedback: Patient satisfied with anesthetic care.
--- NOTE | 2021-06-12 14:28 | PM.IMPN ---
Progress Note: A&P Assessment and Plan (1) SBO (small bowel obstruction): Code(s): K56.609 - Unspecified intestinal obstruction, unspecified as to partial versus complete obstruction Status: Acute Assessment and Plan: NG tube in place S/p exploratory laparotomy, POD #1 Surgery following, recommendations appreciated Pain management IV Supportive care PT/OT (2) ESRD (end stage renal disease): Code(s): N18.6 - End stage renal disease Status: Chronic Assessment and Plan: HD TTS Nephrology following, plan for HD next Thursday Avoid nephrtoxins Follow renal panel (3) Abdominal pain: Code(s): R10.9 - Unspecified abdominal pain Status: Acute Assessment and Plan: 2/2 SBO Supportive care with pain management (4) Chronic kidney disease (CKD), stage V: Code(s): N18.5 - Chronic kidney disease, stage 5 Status: Chronic Assessment and Plan: Treatment as above (5) BPH (benign prostatic hyperplasia): Code(s): N40.0 - Benign prostatic hyperplasia without lower urinary tract symptoms Status: Chronic Assessment and Plan: Resume home meds when appropriate (6) Hyperlipidemia: Code(s): E78.5 - Hyperlipidemia, unspecified Status: Chronic Assessment and Plan: Continue with atorvastatin (7) Diabetes: Code(s): E11.9 - Type 2 diabetes mellitus without complications Status: Chronic Assessment and Plan: Hgb A1c 5.9 Accu-Cheks every 6 hours SSI Monitor (8) Hypertension: Code(s): I10 - Essential (primary) hypertension Status: Chronic Assessment and Plan: Pt is NPO Holding antihypertensive Monitor (9) UTI (urinary tract infection): Code(s): N39.0 - Urinary tract infection, site not specified Status: Acute Assessment and Plan: UA+ Follow UC s/p Rocephin Subjective Date/time seen: 06/12/21 14:28 Pt seen and evaluated; daughter at the bedside assisting with interpretation; abdominal pain has improved; pt denies flatus Review of Systems Review of Systems: All systems reviewed & are unremarkable except as noted in HPI and below Exam Const: General: cooperative, healthy appearing, comfortable, no acute distress, well developed, alert, awake and Physically active Nutritional Appearance: average body habitus Orientation/consciousness: oriented to person, oriented to place, oriented to time and patient oriented x3 Limitations: language barrier (slovenian speaking) HENMT: Head: normal to inspection, No palpable skull fracture present, normocephalic and atraumatic Ears: hearing grossly normal bilaterally and external ears normal General nose exam: Normal external nose present, Normal nares present and No nasal polyps present Face and sinus: face symmetric and other (NG tube in place) Mouth: Yes Normal oral and palatal mucosa present Throat: posterior oropharynx normal Eyes: General: appearance normal, both eyes and all related structures Alignment and Position: alignment normal Periorbital: periorbital findings normal Eyelids: eyelids normal Conjunctivae: conjunctivae normal Sclera: sclerae normal Cornea: corneas normal Pupils: Equal, round and reactive pupils present EOM: EOMs intact bilaterally Other: NG tube intact to left nose Neck: Neck: normal visual inspection, full ROM, no lymphadenopathy, trachea midline, supple and no JVD Thyroid: thyroid normal Carotids: normal carotid upstroke Lymphatic: no lymphadenopathy noted Chest: Chest palpation & inspection: normal inspection of the chest Resp: Effort & Inspection: normal respiratory effort Auscultation: clear to auscultation bilaterally Percussion: percussion normal Cardio: Jugular venous distension: no JVD Palpation: normal PMI Rate: regular rate Rhythm: regular rhythm Heart sounds: S1 normal heart sound present and S2 normal heart sound present Peripheral pulses: Peripheral pulses 2+
[2021-06-12 18:01] LABS: Glucose Point of Care 138 mg/dl (65-105)
--- NOTE | 2021-06-12 18:20 | PM.PNNEP ---
Progress Note: A&P Assessment and Plan (1) ESRD (end stage renal disease): Code(s): N18.6 - End stage renal disease Status: Chronic Assessment and Plan: HD tomorrow volume status looks good Potassium is doing well (2) SBO (small bowel obstruction): Code(s): K56.609 - Unspecified intestinal obstruction, unspecified as to partial versus complete obstruction Status: Acute Assessment and Plan: Surgery recommendations noted trying to avoid surgery NPO, NGT follow fluid status (3) Hypertension: Code(s): I10 - Essential (primary) hypertension Status: Chronic Assessment and Plan: systolic in the 120s. on no antihypertensives. (4) Anemia: Code(s): D64.9 - Anemia, unspecified Status: Acute Assessment and Plan: due to ESRD Epogen with HD hb up and down around 9 (5) Diabetes: Code(s): E11.9 - Type 2 diabetes mellitus without complications Status: Chronic Assessment and Plan: on Accu-Cheks and sliding-scale insulin Subjective Date/time seen: 06/12/21 18:20 Interval history: belly is feeling better today. He denies shortness of breath Exam Narrative: Exam Narrative: WDWN in NAD skin no rash or subcu nodules head ncat lungs clear bilaterally cor reg no rub or gallop abd BS+ nontender and soft but mildly tender ext no edema or cyanosis. Objective Data Vital Signs Vital Signs: Vital Signs - 24 hr 06/11/21 19:10 06/11/21 20:00 06/12/21 00:00 Temperature 36.4 C L 36.3 C L Pulse Rate 71 76 71 Respiratory Rate 14 16 Blood Pressure 134/58 L 130/57 L Pulse Oximetry 98 98 06/12/21 04:00 06/12/21 08:00 06/12/21 08:18 Temperature 36.5 C 36.3 C L Pulse Rate 71 73 69 Respiratory Rate 18 18 Blood Pressure 130/60 133/56 L Pulse Oximetry 99 99 06/12/21 12:00 06/12/21 12:11 06/12/21 16:00 Temperature 36.3 C L 36.6 C Pulse Rate 71 79 84 Respiratory Rate 18 18 Blood Pressure 139/58 L 129/59 L Pulse Oximetry 99 99 Intake/Output Intake/Output: Intake & Output 07/06/10/21 06/11/21 06/12/21 23:59 23:59 23:59 23:59 Intake Total 0 0 2230 1664 Output Total 250 150 152 140 Balance -250 1900 2078 1524 Meds/Results Medications: Active Medications Generic Name Dose Route Start Last Admin Trade Name Freq PRN Reason Stop Dose Admin Clopidogrel Bisulfate 75 mg 06/12/21 09:00 06/12/21 08:43 Clopidogrel Bisulfate 75 Mg Tablet PO 75 mg DAILY LEAH Administration Dextrose 12.5 gm 06/09/21 12:33 Dextrose 50% 25 Gm/50 Ml Syringe IV PUSH PRN PRN Hypoglycemia Protocol Enoxaparin Sodium 30 mg 06/11/21 09:00 06/12/21 08:39 Enoxaparin 30 Mg/0.3 Ml Syringe SUB-Q 30 mg DAILY LEAH Administration Epoetin Lucas-epbx 10,000 units 06/11/21 09:00 Epoetin Lucas-Epbx 10,000 Units/Ml Vial IV PUSH TUTHSA LE[facility] Famotidine 20 mg 06/11/21 21:00 06/12/21 08:39 Famotidine 20 Mg/2 Ml Vial IV PUSH 20 mg Q12HR LEAH Administration Glucagon 1 mg 06/09/21 12:33 Glucagon For Inj 1 Mg Vial IM PRN PRN Hypoglycemia Protocol Glucose 15 gm 06/09/21 12:33 Glucose Oral Gel 15 Gm Of Glucse In 37.5 Gm Tube PO PRN PRN Hypoglycemia Protocol Sodium Chloride 1,000 mls @ 75 mls/hr 06/09/21 11:35 06/12/21 17:46 Normal Saline Iv IV CONT 75 mls/hr .[id number] LEAH Administration Ceftriaxone Sodium/Dextrose 1 gm in 50 mls @ 100 mls/hr 06/10/21 12:00 06/12/21 11:29 Rocephin 1 Gm/D5w 50 Ml IVPB 100 mls/hr Q24H LEAH Administration Dextrose 1,000 mls @ 100 mls/hr 06/09/21 12:33 Dextrose 5% 1,000 Ml IVPB PRN PRN Hypoglycemia Protocol Ibuprofen 400 mg/ Sodium 104 mls @ 200 mls/hr 06/11/21 17:10 06/12/21 01:38 Chloride IVPB Infused Q6H PRN Infusion Pain Rated 1-3 Insulin Aspart 2 - 5 units 07/18/21 12:00 06/12/21 17:42 Insulin Aspart (*[facility]) 100 Units/M
[2021-06-12] MEDS: LATANOPROST 0.005% OP SOLN 2.5 ML BTL 2 DROP EACH EYE (20:06)
[2021-06-13] VITALS (25 sets, daily range): BP systolic 133–163; BP diastolic 54–78; PULSE 63–97; RESP 14–18; TEMP 36–36.9; O2SAT 99–100
[2021-06-13 00:03] LABS: Glucose Point of Care 115 mg/dl (65-105)
[2021-06-13] MEDS: SODIUM CHLORIDE 0.9% IV 1,000 ML 75 ML IV CONT (06:13)
[2021-06-13 06:38] LABS: Hematocrit 29.7 % (42.0-52.0); Hemoglobin 9.2 g/dL (14.0-18.0); Mean Corpuscular Hemoglobin 29.6 pg (26-34); Mean Corpuscular Volume 95.5 fl (80-100); Mean Platelet Volume 10.9 fl (7.4-10.4); Platelet Count Result 179 k/mm3 (150-375); Red Blood Count 3.11 M/mm3 (4.6-6.20); Red Cell Distribution Width 14.4 % (11.5-14.5); White Blood Count 6.3 K/mm3 (4.5-10.0)
[2021-06-13 06:45] LABS: Glucose Point of Care 110 mg/dl (65-105)
--- NOTE | 2021-06-13 06:46 | PM.PNGS ---
Progress Note: A&P Assessment and Plan (1) SBO (small bowel obstruction): Code(s): K56.609 - Unspecified intestinal obstruction, unspecified as to partial versus complete obstruction Status: Acute Assessment and Plan: await return of bowel function. Increase ambulation today. Continue NG tube and NPO. Hopefully DC NG tomorrow. Subjective Subjective Date/Time Seen: 06/13/21 06:46 Post Op day: 2 Patient reports: no new complaints, no flatus and no bowel movement Exam GI: Inspection: non-distended and incision ( healing well) GI Palp: Yes Soft to palpation and Yes Tenderness to palpation present (GI) Auscultation: Hypoactive bowel sounds present Objective Data Vital Signs Vital Signs: Vital Signs - 24 hr 06/12/21 08:00 06/12/21 08:18 06/12/21 12:00 Temperature 36.3 C L Pulse Rate 73 69 71 Respiratory Rate 18 Blood Pressure 133/56 L Pulse Oximetry 99 06/12/21 12:11 06/12/21 16:00 06/12/21 20:00 Temperature 36.3 C L 36.6 C 36.6 C Pulse Rate 79 84 74 Respiratory Rate 18 18 18 Blood Pressure 139/58 L 129/59 L 141/59 H Pulse Oximetry 99 99 99 06/13/21 00:00 06/13/21 04:00 Temperature Pulse Rate 67 63 Respiratory Rate Blood Pressure Pulse Oximetry Intake/Output Intake/Output: Intake & Output 06/10/21 06/11/21 06/12/21 06/13/21 23:59 23:59 23:59 23:59 Intake Total 2050 2230 1714 1000 Output Total 150 152 440 Balance 1900 2078 1274 1000 Meds/Results Medications: Active Medications Generic Name Dose Route Start Last Admin Trade Name Freq PRN Reason Stop Dose Admin Clopidogrel Bisulfate 75 mg 06/12/21 09:00 06/12/21 08:43 Clopidogrel Bisulfate 75 Mg Tablet PO 75 mg DAILY LEAH Administration Dextrose 12.5 gm 06/09/21 12:33 Dextrose 50% 25 Gm/50 Ml Syringe IV PUSH PRN PRN Hypoglycemia Protocol Enoxaparin Sodium 30 mg 06/11/21 09:00 06/12/21 08:39 Enoxaparin 30 Mg/0.3 Ml Syringe SUB-Q 30 mg DAILY LEAH Administration Epoetin Lucas-epbx 10,000 units 06/11/21 09:00 06/12/21 19:08 Epoetin Lucas-Epbx 10,000 Units/Ml Vial IV PUSH Not Given TUTHSA [facility] Famotidine 20 mg 06/11/21 21:00 06/12/21 20:06 Famotidine 20 Mg/2 Ml Vial IV PUSH 20 mg Q12HR LEAH Administration Glucagon 1 mg 06/09/21 12:33 Glucagon For Inj 1 Mg Vial IM PRN PRN Hypoglycemia Protocol Glucose 15 gm 06/09/21 12:33 Glucose Oral Gel 15 Gm Of Glucse In 37.5 Gm Tube PO PRN PRN Hypoglycemia Protocol Sodium Chloride 1,000 mls @ 75 mls/hr 06/09/21 11:35 06/13/21 06:13 Normal Saline Iv IV CONT 75 mls/hr .[id number] LEAH Administration Ceftriaxone Sodium/Dextrose 1 gm in 50 mls @ 100 mls/hr 06/10/21 12:00 06/12/21 12:00 Rocephin 1 Gm/D5w 50 Ml IVPB Infused Q24H LEAH Infusion Dextrose 1,000 mls @ 100 mls/hr 06/09/21 12:33 Dextrose 5% 1,000 Ml IVPB PRN PRN Hypoglycemia Protocol Ibuprofen 400 mg/ Sodium 104 mls @ 200 mls/hr 06/11/21 17:10 06/12/21 01:38 Chloride IVPB Infused Q6H PRN Infusion Pain Rated 1-3 Insulin Aspart 2 - 5 units 06/09/21 12:00 06/13/21 02:47 Insulin Aspart (*[facility]) 100 Units/Ml SUB-Q Not Given Q6H [facility] Protocol Latanoprost 2 drop 06/11/21 21:00 06/12/21 20:06 Latanoprost 0.005% Op Soln 2.5 Ml Btl EACH EYE 2 drop HS LEAH Administration Miconazole Nitrate 1 applic 06/12/21 09:00 06/12/21 08:39 Miconazole Nitrate 2% Cream 30 Gm Tube TOPICAL 1 applic DAILY LEAH Administration Morphine Sulfate 1 mg 06/11/21 17:10 Morphine Sulfate (*Crx) 2 Mg/Ml Inj IV PUSH Q2H PRN Pain Rated 4-6 Morphine Sulfate 2 mg 06/11/21 17:15 Morphine Sulfate (*Crx) 2 Mg/Ml Inj IV PUSH Q2H PRN Pain Rated 7-10 Naloxone HCl 0.1 mg 06/11/21 17:10 Naloxone Hcl 0.4 Mg/Ml Vial IV PUSH Q2M PRN Opiate Reversal Ondansetron HCl 4 mg 06/09/21 12:31 Ondansetron Inj 4 Mg/2 Ml Via
[2021-06-13 07:20] LABS: Albumin Level 2.8 g/dL (3.5-5.1); Anion Gap 12 mmol/L (8-16); Blood Urea Nitrogen 70 mg/dL (9-20); Carbon Dioxide 26 mmol/L (22-30); Chloride 106 mmol/L (98-107); Estimated CRCL calculation 9 ml/min; Estimated Glomerular Filt Rate 9; Glucose 125 mg/dL (65-110); Phosphorus 5.2 mg/dL (2.5-4.5); Potassium 3.8 mmol/L (3.4-5.0); Sodium 144 mmol/L (137-145)
[2021-06-13] MEDS: ENOXAPARIN 30 MG/0.3 ML SYRINGE SUB-Q (09:28)
[2021-06-13] MEDS: MICONAZOLE NITRATE 2% CREAM 30 GM TUBE 1 APPLIC TOPICAL (09:30)
[2021-06-13] MEDS: CLOPIDOGREL BISULFATE 75 MG TABLET PO (09:30)
[2021-06-13] MEDS: TIMOLOL MALEATE 0.5% OP SOLN 5 ML BOTTLE 2 DROP EACH EYE (09:31)
[2021-06-13] MEDS: FAMOTIDINE 20 MG/2 ML VIAL IV PUSH ×2 (09:31→21:16)
--- NOTE | 2021-06-13 09:40 | PC.NURSE ---
Patient to dialysis per bed.
--- NOTE | 2021-06-13 09:43 | PM.IMPN ---
Progress Note: A&P Assessment and Plan (1) SBO (small bowel obstruction): Code(s): K56.609 - Unspecified intestinal obstruction, unspecified as to partial versus complete obstruction Status: Acute Assessment and Plan: NG tube in place, may remove tomorrow per GS S/p exploratory laparotomy, POD #2 Surgery following, recommendations appreciated Pain management IVF Supportive care PT/OT (2) ESRD (end stage renal disease): Code(s): N18.6 - End stage renal disease Status: Chronic Assessment and Plan: HD TTS Nephrology following, plan for HD today Avoid nephrtoxins Follow renal panel (3) Abdominal pain: Code(s): R10.9 - Unspecified abdominal pain Status: Acute Assessment and Plan: 2/2 SBO Supportive care with pain management (4) Chronic kidney disease (CKD), stage V: Code(s): N18.5 - Chronic kidney disease, stage 5 Status: Chronic Assessment and Plan: Treatment as above (5) BPH (benign prostatic hyperplasia): Code(s): N40.0 - Benign prostatic hyperplasia without lower urinary tract symptoms Status: Chronic Assessment and Plan: Resume home meds when appropriate Monitor (6) Hyperlipidemia: Code(s): E78.5 - Hyperlipidemia, unspecified Status: Chronic Assessment and Plan: Continue with atorvastatin (7) Diabetes: Code(s): E11.9 - Type 2 diabetes mellitus without complications Status: Chronic Assessment and Plan: Hgb A1c 5.9 Accu-Cheks every 6 hours SSI Monitor (8) Hypertension: Code(s): I10 - Essential (primary) hypertension Status: Chronic Assessment and Plan: Pt is NPO Holding antihypertensive Monitor (9) UTI (urinary tract infection): Code(s): N39.0 - Urinary tract infection, site not specified Status: Acute Assessment and Plan: UA+ Follow UC s/p Rocephin Subjective Date/time seen: 06/13/21 09:43 Interval history: Pt denies any pain; Review of Systems Review of Systems: All systems reviewed & are unremarkable except as noted in HPI and below Exam Const: General: cooperative, healthy appearing, comfortable, no acute distress, well developed, alert, awake and Physically active Nutritional Appearance: average body habitus Orientation/consciousness: oriented to person, oriented to place, oriented to time and patient oriented x3 Limitations: language barrier (malay speaking) HENMT: Head: normal to inspection, No palpable skull fracture present, normocephalic and atraumatic Ears: hearing grossly normal bilaterally and external ears normal General nose exam: Normal external nose present, Normal nares present and No nasal polyps present Face and sinus: face symmetric and other (NG tube in place) Mouth: Yes Normal oral and palatal mucosa present Throat: posterior oropharynx normal Eyes: General: appearance normal, both eyes and all related structures Alignment and Position: alignment normal Periorbital: periorbital findings normal Eyelids: eyelids normal Conjunctivae: conjunctivae normal Sclera: sclerae normal Cornea: corneas normal Pupils: Equal, round and reactive pupils present EOM: EOMs intact bilaterally Other: NG tube intact to left nare Neck: Neck: normal visual inspection, full ROM, no lymphadenopathy, trachea midline, supple and no JVD Thyroid: thyroid normal Carotids: normal carotid upstroke Lymphatic: no lymphadenopathy noted Chest: Chest palpation & inspection: normal inspection of the chest Resp: Effort & Inspection: normal respiratory effort Auscultation: clear to auscultation bilaterally Percussion: percussion normal Cardio: Jugular venous distension: no JVD Palpation: normal PMI Rate: regular rate Rhythm: regular rhythm Heart sounds: S1 normal heart sound present and S2 normal heart sound present Peripheral pulses: Peripheral pulses 2+ throughout GI: Inspection: normal to inspection
[2021-06-13 09:48] LABS: Hepatitis B Surface Antigen Negative (Negative)
[2021-06-13 10:06] LABS: Hepatitis B Surface Anti Res Negative
--- NOTE | 2021-06-13 11:59 | PM.PNNEP ---
Progress Note: A&P Assessment and Plan (1) ESRD (end stage renal disease): Code(s): N18.6 - End stage renal disease Status: Chronic Assessment and Plan: HD tomorrow volume status looks good Potassium is fine (2) SBO (small bowel obstruction): Code(s): K56.609 - Unspecified intestinal obstruction, unspecified as to partial versus complete obstruction Status: Acute Assessment and Plan: Surgery recommendations noted trying to avoid surgery NPO, NGT follow fluid status (3) Hypertension: Code(s): I10 - Essential (primary) hypertension Status: Chronic Assessment and Plan: systolic well controlled on no antihypertensives. (4) Anemia: Code(s): D64.9 - Anemia, unspecified Status: Acute Assessment and Plan: due to ESRD Epogen with HD hb up and down around 9 (5) Diabetes: Code(s): E11.9 - Type 2 diabetes mellitus without complications Status: Chronic Assessment and Plan: on Accu-Cheks and sliding-scale insulin Subjective Date/time seen: 06/13/21 11:59 Interval history: belly is feeling better today. no bbely pain only 100cc from NGT overnight. on dialysis and tolerating well. Seen at 11:45 a.m. Exam Narrative: Exam Narrative: WDWN in NAD skin no rash or subcu nodules head ncat lungs clear bilaterally cor reg no rub or gallop abd BS+ nontender and soft but mildly tender ext no edema or cyanosis. Objective Data Vital Signs Vital Signs: Vital Signs - 24 hr 06/12/21 12:00 06/12/21 12:11 06/12/21 16:00 Temperature 36.3 C L 36.6 C Pulse Rate 71 79 84 Respiratory Rate 18 18 Blood Pressure 139/58 L 129/59 L Pulse Oximetry 99 99 06/12/21 20:00 06/13/21 00:00 06/13/21 04:00 Temperature 36.6 C Pulse Rate 74 67 63 Respiratory Rate 18 Blood Pressure 141/59 H Pulse Oximetry 99 06/13/21 06:00 06/13/21 08:00 06/13/21 09:40 Temperature 36.4 C 36.5 C Pulse Rate 66 97 69 Respiratory Rate 14 16 Blood Pressure 144/54 H 163/73 H Pulse Oximetry 100 06/13/21 09:52 06/13/21 10:00 06/13/21 10:15 Temperature Pulse Rate 68 65 69 Respiratory Rate Blood Pressure 155/73 H 151/68 H 136/67 Pulse Oximetry 06/13/21 10:30 06/13/21 10:45 06/13/21 11:00 Temperature Pulse Rate 64 66 64 Respiratory Rate Blood Pressure 154/68 H 144/73 H 144/67 H Pulse Oximetry 06/13/21 11:15 06/13/21 11:30 Temperature Pulse Rate 65 66 Respiratory Rate Blood Pressure 151/58 H 138/72 Pulse Oximetry Intake/Output Intake/Output: Intake & Output 06/10/21 06/11/21 06/12/21 06/13/21 23:59 23:59 23:59 23:59 Intake Total 2050 2230 1714 1380 Output Total 150 152 440 650 Balance 1900 2078 1274 730 Meds/Results Medications: Active Medications Generic Name Dose Route Start Last Admin Trade Name Freq PRN Reason Stop Dose Admin Clopidogrel Bisulfate 75 mg 06/12/21 09:00 06/13/21 09:30 Clopidogrel Bisulfate 75 Mg Tablet PO 75 mg DAILY LEAH Administration Dextrose 12.5 gm 06/09/21 12:33 Dextrose 50% 25 Gm/50 Ml Syringe IV PUSH PRN PRN Hypoglycemia Protocol Enoxaparin Sodium 30 mg 06/11/21 09:00 06/13/21 09:28 Enoxaparin 30 Mg/0.3 Ml Syringe SUB-Q 30 mg DAILY LEAH Administration Epoetin Lucas-epbx 10,000 units 06/11/21 09:00 06/12/21 19:08 Epoetin Lucas-Epbx 10,000 Units/Ml Vial IV PUSH Not Given TUTHSA LEAH Famotidine 20 mg 06/11/21 21:00 06/13/21 09:31 Famotidine 20 Mg/2 Ml Vial IV PUSH 20 mg Q12HR LEAH Administration Glucagon 1 mg 06/09/21 12:33 Glucagon For Inj 1 Mg Vial IM PRN PRN Hypoglycemia Protocol Glucose 15 gm 06/09/21 12:33 Glucose Oral Gel 15 Gm Of Glucse In 37.5 Gm Tube PO PRN PRN Hypoglycemia Protocol Sodium Chloride 1,000 mls @ 75 mls/hr 06/09/21 11:35 06/13/21 09:26 Normal Saline Iv IV CONT 0 mls/hr .[id number] LEAH I
--- NOTE | 2021-06-13 13:23 | PCPTNOTE ---
Attempted PT eval. Pt in dialysis. Will try again tomorrow.
--- NOTE | 2021-06-13 14:07 | PC.NURSE ---
Addendum entered by Ansley Chang RN 06/13/21 14:13: EOPOTIN; not epogen. Changed to subq with one-time order per Dr. Rodriguez. Original Note: Patient returned from dialysis per bed. Epogen non-administered by smoke and flame specialist. Call to Dr. Rodriguez to clarify administration by changing to sub-q.
[2021-06-13] MEDS: EPOETIN ALFA-EPBX 10,000 UNITS/ML VIAL 10000 UNITS SUB-Q (15:05)
[2021-06-13] MEDS: LATANOPROST 0.005% OP SOLN 2.5 ML BTL 2 DROP EACH EYE (21:17)
[2021-06-13 21:55] LABS: Glucose Point of Care 110 mg/dl (65-105)
[2021-06-14] VITALS: PULSE 68
[2021-06-14 01:53] LABS: Glucose Point of Care 106 mg/dl (65-105)
[2021-06-14 04:00] VITALS: PULSE 69
[2021-06-14] MEDS: SODIUM CHLORIDE 0.9% IV 1,000 ML 75 ML IV CONT (04:06)
[2021-06-14 06:00] VITALS: BP 155/76; PULSE 84; RESP 18; TEMP 37.6; O2SAT 98
[2021-06-14 06:44] LABS: Hematocrit 30.4 % (42.0-52.0); Hemoglobin 9.6 g/dL (14.0-18.0); Mean Corpuscular HGB Conc 31.6 g/dl (32-36); Mean Corpuscular Hemoglobin 29.8 pg (26-34); Mean Corpuscular Volume 94.4 fl (80-100); Mean Platelet Volume 10.6 fl (7.4-10.4); Platelet Count Result 177 k/mm3 (150-375); Red Blood Count 3.22 M/mm3 (4.6-6.20); Red Cell Distribution Width 13.8 % (11.5-14.5); White Blood Count 6.3 K/mm3 (4.5-10.0)
[2021-06-14 06:57] LABS: Glucose Point of Care 102 mg/dl (65-105)
[2021-06-14 07:02] LABS: Anion Gap 8 mmol/L (8-16); Blood Urea Nitrogen 35 mg/dL (9-20); Calcium 7.7 mg/dL (8.4-10.2); Carbon Dioxide 27 mmol/L (22-30); Chloride 106 mmol/L (98-107); Estimated CRCL calculation 14 ml/min; Estimated Glomerular Filt Rate 15; Glucose 95 mg/dL (65-110); Potassium 3.7 mmol/L (3.4-5.0); Sodium 141 mmol/L (137-145)
--- NOTE | 2021-06-14 07:23 | PM.PNGS ---
Progress Note: A&P Assessment and Plan (1) SBO (small bowel obstruction): Code(s): K56.609 - Unspecified intestinal obstruction, unspecified as to partial versus complete obstruction Status: Acute Assessment and Plan: bowel function returning. Will DC NG tube and start clear liquids. Continue ambulation. Wound looks good. Making good progress. (2) ESRD (end stage renal disease): Code(s): N18.6 - End stage renal disease Status: Chronic (3) Diabetes: Code(s): E11.9 - Type 2 diabetes mellitus without complications Status: Chronic (4) Non-ST elevation LA (NSTEMI): Code(s): I21.4 - Non-ST elevation (NSTEMI) myocardial infarction Status: Chronic Subjective Subjective Date/Time Seen: 06/14/21 07:23 Post Op day: 3 Patient reports: no new complaints, pain is less, flatus, no bowel movement and afebrile Exam GI: Inspection: non-distended, incision ( clean dry healing well) and scaphoid GI Palp: Yes Soft to palpation, Yes Tenderness to palpation present (GI) ( minimal tenderness) and No Guarding due to palpation present (GI) Auscultation: normal bowel sounds Objective Data Vital Signs Vital Signs: Vital Signs - 24 hr 06/13/21 08:00 06/13/21 09:40 06/13/21 09:52 Temperature 36.5 C Pulse Rate 97 69 68 Respiratory Rate 16 Blood Pressure 163/73 H 155/73 H Pulse Oximetry 06/13/21 10:00 06/13/21 10:15 06/13/21 10:30 Temperature Pulse Rate 65 69 64 Respiratory Rate Blood Pressure 151/68 H 136/67 154/68 H Pulse Oximetry 06/13/21 10:45 06/13/21 11:00 06/13/21 11:15 Temperature Pulse Rate 66 64 65 Respiratory Rate Blood Pressure 144/73 H 144/67 H 151/58 H Pulse Oximetry 06/13/21 11:30 06/13/21 11:45 06/13/21 12:00 Temperature Pulse Rate 66 68 69 Respiratory Rate Blood Pressure 138/72 153/78 H 155/72 H Pulse Oximetry 06/13/21 12:15 06/13/21 12:30 06/13/21 12:45 Temperature Pulse Rate 69 72 75 Respiratory Rate Blood Pressure 145/74 H 158/78 H 150/77 H Pulse Oximetry 06/13/21 13:05 06/13/21 13:22 06/13/21 13:29 Temperature 36.4 C L Pulse Rate 71 72 75 Respiratory Rate 16 Blood Pressure 133/75 142/74 H 134/68 Pulse Oximetry 06/13/21 14:00 06/13/21 16:00 06/13/21 20:00 Temperature 36.6 C Pulse Rate 64 76 67 Respiratory Rate Blood Pressure 145/55 H Pulse Oximetry 100 06/13/21 22:00 06/14/21 00:00 06/14/21 04:00 Temperature 36.9 C Pulse Rate 69 68 69 Respiratory Rate 18 Blood Pressure 144/62 H Pulse Oximetry 99 06/14/21 06:00 Temperature 37.6 C Pulse Rate 84 Respiratory Rate 18 Blood Pressure 155/76 H Pulse Oximetry 98 Intake/Output Intake/Output: Intake & Output 06/11/21 06/12/21 06/13/21 06/14/21 23:59 23:59 23:59 23:59 Intake Total 2230 1714 1430 1000 Output Total 079 011 4237 300 Balance 2078 1274 -1570 700 Meds/Results Medications: Active Medications Generic Name Dose Route Start Last Admin Trade Name Freq PRN Reason Stop Dose Admin Acetaminophen 500 mg 06/14/21 07:22 Acetaminophen 500 Mg Tablet PO Q6H PRN Mild Pain (1-3) or Fever Hydrocodone Bitart/Acetaminophen 1 tab 06/14/21 07:22 Hydrocodone/Acetaminophen (*Crx) 5-325 Mg Tablet PO Q4H PRN Pain Rated 4-6 Hydrocodone Bitart/Acetaminophen 1 tab 06/14/21 07:22 Hydrocodone/Acetaminophen (*Crx) 7.5-325 Mg Tablet PO Q4H PRN Pain Rated 7-10 Clopidogrel Bisulfate 75 mg 06/12/21 09:00 06/13/21 09:30 Clopidogrel Bisulfate 75 Mg Tablet PO 75 mg DAILY LEAH Administration Dextrose 12.5 gm 06/09/21 12:33 Dextrose 50% 25 Gm/50 Ml Syringe IV PUSH PRN PRN Hypoglycemia Protocol Enoxaparin Sodium 30 mg 06/11/21 09:00 06/13/21 09:28 Enoxaparin 30 Mg/0.3 Ml Syringe SUB-Q 30 mg DAILY LEAH Administration Epoetin Lucas-epbx 10,000 units 06/11/21 09:00 06/13/21 14:13 Epoetin Lucas-Epbx 10,000 Unit
[2021-06-14] MEDS: ENOXAPARIN 30 MG/0.3 ML SYRINGE SUB-Q (09:06)
[2021-06-14] MEDS: CLOPIDOGREL BISULFATE 75 MG TABLET PO (09:06)
[2021-06-14] MEDS: TIMOLOL MALEATE 0.5% OP SOLN 5 ML BOTTLE 2 DROP EACH EYE ×2 (09:07→16:33)
[2021-06-14] MEDS: MICONAZOLE NITRATE 2% CREAM 30 GM TUBE 1 APPLIC TOPICAL (09:07)
[2021-06-14] MEDS: FAMOTIDINE 20 MG TABLET PO (09:12)
[2021-06-14 10:33] VITALS: BMI 24.0
[2021-06-14 11:55] LABS: Glucose Point of Care 134 mg/dl (65-105)
--- NOTE | 2021-06-14 12:23 | PM.PNNEP ---
Progress Note: A&P Assessment and Plan (1) ESRD (end stage renal disease): Code(s): N18.6 - End stage renal disease Status: Chronic Assessment and Plan: HD on Thursday. volume status looks good Potassium is fine (2) SBO (small bowel obstruction): Code(s): K56.609 - Unspecified intestinal obstruction, unspecified as to partial versus complete obstruction Status: Acute Assessment and Plan: Surgery recommendations noted NG tube is out. Tolerating some p.o.. (3) Hypertension: Code(s): I10 - Essential (primary) hypertension Status: Chronic Assessment and Plan: systolic Is creeping up. Will start amlodipine (4) Anemia: Code(s): D64.9 - Anemia, unspecified Status: Acute Assessment and Plan: due to ESRD Epogen with HD hb up and down around 9 (5) Diabetes: Code(s): E11.9 - Type 2 diabetes mellitus without complications Status: Chronic Assessment and Plan: on Accu-Cheks and sliding-scale insulin Subjective Date/time seen: 06/14/21 12:23 Interval history: belly is feeling okay. NG tube is out Eating some and keeping it down. Exam Narrative: Exam Narrative: WDWN in NAD skin no rash or subcu nodules head ncat lungs clear bilaterally cor reg no rub or gallop abd BS+ nontender and soft but mildly tender ext no edema or cyanosis. Objective Data Vital Signs Vital Signs: Vital Signs - 24 hr 06/13/21 12:30 06/13/21 12:45 06/13/21 13:05 Temperature Pulse Rate 72 75 71 Respiratory Rate Blood Pressure 158/78 H 150/77 H 133/75 Pulse Oximetry 06/13/21 13:22 06/13/21 13:29 06/13/21 14:00 Temperature 36.4 C L 36.6 C Pulse Rate 72 75 64 Respiratory Rate 16 Blood Pressure 142/74 H 134/68 145/55 H Pulse Oximetry 100 06/13/21 16:00 06/13/21 20:00 06/13/21 22:00 Temperature 36.9 C Pulse Rate 76 67 69 Respiratory Rate 18 Blood Pressure 144/62 H Pulse Oximetry 99 06/14/21 00:00 06/14/21 04:00 06/14/21 06:00 Temperature 37.6 C Pulse Rate 68 69 84 Respiratory Rate 18 Blood Pressure 155/76 H Pulse Oximetry 98 Intake/Output Intake/Output: Intake & Output 06/11/21 06/12/21 06/13/21 06/14/21 23:59 23:59 23:59 23:59 Intake Total 2230 1714 1430 1280 Output Total 697 130 9819 300 Balance 2078 1274 -1570 980 Meds/Results Medications: Active Medications Generic Name Dose Route Start Last Admin Trade Name Freq PRN Reason Stop Dose Admin Acetaminophen 500 mg 06/14/21 07:22 Acetaminophen 500 Mg Tablet PO Q6H PRN Mild Pain (1-3) or Fever Hydrocodone Bitart/Acetaminophen 1 tab 06/14/21 07:22 Hydrocodone/Acetaminophen (*Crx) 5-325 Mg Tablet PO Q4H PRN Pain Rated 4-6 Hydrocodone Bitart/Acetaminophen 1 tab 06/14/21 07:22 Hydrocodone/Acetaminophen (*Crx) 7.5-325 Mg Tablet PO Q4H PRN Pain Rated 7-10 Clopidogrel Bisulfate 75 mg 06/12/21 09:00 06/14/21 09:06 Clopidogrel Bisulfate 75 Mg Tablet PO 75 mg DAILY LEAH Administration Dextrose 12.5 gm 06/09/21 12:33 Dextrose 50% 25 Gm/50 Ml Syringe IV PUSH PRN PRN Hypoglycemia Protocol Enoxaparin Sodium 30 mg 06/11/21 09:00 06/14/21 09:06 Enoxaparin 30 Mg/0.3 Ml Syringe SUB-Q 30 mg DAILY LEAH Administration Epoetin Lucas-epbx 10,000 units 06/11/21 09:00 06/13/21 14:13 Epoetin Lucas-Epbx 10,000 Units/Ml Vial IV PUSH Not Given [facility] LEAH Famotidine 20 mg 06/14/21 09:00 06/14/21 09:12 Famotidine 20 Mg Tablet PO 20 mg DAILY LEAH Administration Glucagon 1 mg 06/09/21 12:33 Glucagon For Inj 1 Mg Vial IM PRN PRN Hypoglycemia Protocol Glucose 15 gm 06/09/21 12:33 Glucose Oral Gel 15 Gm Of Glucse In 37.5 Gm Tube PO PRN PRN Hypoglycemia Protocol Sodium Chloride 1,000 mls @ 75 mls/hr 06/09/21 11:35 06/14/21 04:06 Normal Saline Iv IV CONT 75 m
[2021-06-14] MEDS: amLODIPine BESYLATE 5 MG TABLET PO (13:41)
[2021-06-14 14:00] VITALS: BP 150/65; PULSE 70; RESP 18; TEMP 36.6; O2SAT 100
--- NOTE | 2021-06-14 14:31 | PM.IMPN ---
Progress Note: A&P Assessment and Plan (1) SBO (small bowel obstruction): Code(s): K56.609 - Unspecified intestinal obstruction, unspecified as to partial versus complete obstruction Status: Acute Assessment and Plan: NG tube removed S/p exploratory laparotomy, POD #3 Surgery following, recommendations appreciated Pain controlled IVF Supportive care PT/OT (2) ESRD (end stage renal disease): Code(s): N18.6 - End stage renal disease Status: Chronic Assessment and Plan: HD TTS Nephrology following Avoid nephrtoxins Follow renal panel (3) Abdominal pain: Code(s): R10.9 - Unspecified abdominal pain Status: Acute Assessment and Plan: 2/2 SBO Supportive care with pain management (4) Chronic kidney disease (CKD), stage V: Code(s): N18.5 - Chronic kidney disease, stage 5 Status: Chronic Assessment and Plan: Treatment as above (5) BPH (benign prostatic hyperplasia): Code(s): N40.0 - Benign prostatic hyperplasia without lower urinary tract symptoms Status: Chronic Assessment and Plan: Resume home meds Monitor (6) Hyperlipidemia: Code(s): E78.5 - Hyperlipidemia, unspecified Status: Chronic Assessment and Plan: Continue with atorvastatin (7) Diabetes: Code(s): E11.9 - Type 2 diabetes mellitus without complications Status: Chronic Assessment and Plan: Hgb A1c 5.9 Accu-Cheks every 6 hours SSI Monitor (8) Hypertension: Code(s): I10 - Essential (primary) hypertension Status: Chronic Assessment and Plan: Pt is NPO Resume home meds Monitor (9) UTI (urinary tract infection): Code(s): N39.0 - Urinary tract infection, site not specified Status: Acute Assessment and Plan: UA+ Follow UC s/p Rocephin Subjective Date/time seen: 06/14/21 14:31 Interval history: Pt denies any pain; NG tube out; up to chair; tolerating clears Review of Systems Review of Systems: All systems reviewed & are unremarkable except as noted in HPI and below Exam Const: General: cooperative, healthy appearing, comfortable, no acute distress, well developed, alert, awake and Physically active Nutritional Appearance: average body habitus Orientation/consciousness: oriented to person, oriented to place, oriented to time and patient oriented x3 Limitations: language barrier (croatian speaking) HENMT: Head: normal to inspection, No palpable skull fracture present, normocephalic and atraumatic Ears: hearing grossly normal bilaterally and external ears normal General nose exam: Normal external nose present, Normal nares present and No nasal polyps present Face and sinus: face symmetric and other (NG tube in place) Mouth: Yes Normal oral and palatal mucosa present Throat: posterior oropharynx normal Eyes: General: appearance normal, both eyes and all related structures Alignment and Position: alignment normal Periorbital: periorbital findings normal Eyelids: eyelids normal Conjunctivae: conjunctivae normal Sclera: sclerae normal Cornea: corneas normal Pupils: Equal, round and reactive pupils present EOM: EOMs intact bilaterally Neck: Neck: normal visual inspection, full ROM, no lymphadenopathy, trachea midline, supple and no JVD Thyroid: thyroid normal Carotids: normal carotid upstroke Lymphatic: no lymphadenopathy noted Chest: Chest palpation & inspection: normal inspection of the chest Resp: Effort & Inspection: normal respiratory effort Auscultation: clear to auscultation bilaterally Percussion: percussion normal Cardio: Jugular venous distension: no JVD Palpation: normal PMI Rate: regular rate Rhythm: regular rhythm Heart sounds: S1 normal heart sound present and S2 normal heart sound present Peripheral pulses: Peripheral pulses 2+ throughout GI: Inspection: normal to inspection Auscultation: Hypoactive bowel sounds present Rectal Exam: def
[2021-06-14] MEDS: ATORVASTATIN 40 MG TABLET 80 MG PO (16:32)
[2021-06-14] MEDS: FERROUS SULFATE 324 MG TABLET 648 MG PO (16:32)
[2021-06-14] MEDS: TAMSULOSIN HCL 0.4 MG CAPSULE PO (16:33)
[2021-06-14 16:44] LABS: Glucose Point of Care 128 mg/dl (65-105)
[2021-06-14] MEDS: carvediloL 12.5 MG TABLET PO (20:48)
[2021-06-14] MEDS: LATANOPROST 0.005% OP SOLN 2.5 ML BTL 2 DROP EACH EYE (20:48)
[2021-06-14 21:25] VITALS: BP 133/58; PULSE 73; RESP 16; TEMP 36.5; O2SAT 100
[2021-06-15] VITALS (12 sets, daily range): BP systolic 94–154; BP diastolic 55–77; PULSE 64–81; RESP 16–20; TEMP 36.3–37; O2SAT 99–100
[2021-06-15 06:15] LABS: Hematocrit 29.4 % (42.0-52.0); Hemoglobin 9.5 g/dL (14.0-18.0); Mean Corpuscular HGB Conc 32.3 g/dl (32-36); Mean Corpuscular Hemoglobin 30.1 pg (26-34); Mean Platelet Volume 10.5 fl (7.4-10.4); Platelet Count Result 177 k/mm3 (150-375); Red Blood Count 3.16 M/mm3 (4.6-6.20); Red Cell Distribution Width 13.5 % (11.5-14.5); White Blood Count 5.4 K/mm3 (4.5-10.0)
[2021-06-15 06:32] LABS: Albumin Level 2.5 g/dL (3.5-5.1); Anion Gap 8 mmol/L (8-16); Blood Urea Nitrogen 44 mg/dL (9-20); Calcium 7.7 mg/dL (8.4-10.2); Carbon Dioxide 27 mmol/L (22-30); Chloride 103 mmol/L (98-107); Estimated CRCL calculation 13 ml/min; Estimated Glomerular Filt Rate 13; Glucose 115 mg/dL (65-110); Phosphorus 3.6 mg/dL (2.5-4.5); Potassium 3.6 mmol/L (3.4-5.0); Sodium 138 mmol/L (137-145)
[2021-06-15 06:51] LABS: Glucose Point of Care 109 mg/dl (65-105)
[2021-06-15 08:14] LABS: Glucose Point of Care 113 mg/dl (65-105)
--- NOTE | 2021-06-15 08:31 | PM.PNNEP ---
Progress Note: A&P Assessment and Plan (1) ESRD (end stage renal disease): Code(s): N18.6 - End stage renal disease Status: Chronic Assessment and Plan: HD Today potassium is normal. Volume status looks okay. (2) SBO (small bowel obstruction): Code(s): K56.609 - Unspecified intestinal obstruction, unspecified as to partial versus complete obstruction Status: Acute Assessment and Plan: Surgery recommendations noted NG tube is out. Tolerating some p.o.. (3) Hypertension: Code(s): I10 - Essential (primary) hypertension Status: Chronic Assessment and Plan: systolic Is creeping up. Will start amlodipine (4) Anemia: Code(s): D64.9 - Anemia, unspecified Status: Acute Assessment and Plan: due to ESRD Epogen with HD hb up and down around 9 (5) Diabetes: Code(s): E11.9 - Type 2 diabetes mellitus without complications Status: Chronic Assessment and Plan: on Accu-Cheks and sliding-scale insulin Subjective Date/time seen: 06/15/21 08:31 Interval history: patient is sitting at the side of the bed. No belly pain. No shortness of breath. Exam Narrative: Exam Narrative: WDWN in NAD skin no rash or subcu nodules head ncat lungs clear to auscultation cor reg no rub or gallop abd BS+ nontender and soft but mildly tender ext no edema Objective Data Vital Signs Vital Signs: Vital Signs - 24 hr 06/14/21 14:00 06/14/21 21:25 06/15/21 06:00 Temperature 36.6 C 36.5 C 36.4 C L Pulse Rate 70 73 71 Respiratory Rate 18 16 18 Blood Pressure 150/65 H 133/58 L 153/66 H Pulse Oximetry 100 100 100 Intake/Output Intake/Output: Intake & Output 06/12/21 06/13/21 06/14/21 06/15/21 23:59 23:59 23:59 23:59 Intake Total 1714 1430 2690 250 Output Total 440 3000 550 150 Balance 1274 -1570 2140 100 Meds/Results Medications: Active Medications Generic Name Dose Route Start Last Admin Trade Name Freq PRN Reason Stop Dose Admin Acetaminophen 500 mg 06/14/21 07:22 Acetaminophen 500 Mg Tablet PO Q6H PRN Mild Pain (1-3) or Fever Hydrocodone Bitart/Acetaminophen 1 tab 06/14/21 07:22 Hydrocodone/Acetaminophen (*Crx) 5-325 Mg Tablet PO Q4H PRN Pain Rated 4-6 Hydrocodone Bitart/Acetaminophen 1 tab 06/14/21 07:22 Hydrocodone/Acetaminophen (*Crx) 7.5-325 Mg Tablet PO Q4H PRN Pain Rated 7-10 Amlodipine Besylate 5 mg 06/15/21 09:00 Amlodipine Besylate 5 Mg Tablet PO DAILY LEAH Atorvastatin Calcium 80 mg 06/14/21 14:50 06/14/21 16:32 Atorvastatin 40 Mg Tablet PO 80 mg DAILY LEAH Administration Carvedilol 12.5 mg 06/14/21 21:00 06/14/21 20:48 Carvedilol 12.5 Mg Tablet PO 12.5 mg Q12HR LEAH Administration Clopidogrel Bisulfate 75 mg 06/12/21 09:00 06/14/21 09:06 Clopidogrel Bisulfate 75 Mg Tablet PO 75 mg DAILY LEAH Administration Dextrose 12.5 gm 06/09/21 12:33 Dextrose 50% 25 Gm/50 Ml Syringe IV PUSH PRN PRN Hypoglycemia Protocol Enoxaparin Sodium 30 mg 06/11/21 09:00 06/14/21 09:06 Enoxaparin 30 Mg/0.3 Ml Syringe SUB-Q 30 mg DAILY LEAH Administration Epoetin Lucas-epbx 10,000 units 06/11/21 09:00 06/13/21 14:13 Epoetin Lucas-Epbx 10,000 Units/Ml Vial IV PUSH Not Given [facility] Ergocalciferol 50,000 unit 06/15/21 09:00 Ergocalciferol 50,000 Unit Capsule PO Fr@0900 [facility] Famotidine 20 mg 06/14/21 09:00 06/14/21 09:12 Famotidine 20 Mg Tablet PO 20 mg DAILY LEAH Administration Ferrous Sulfate 648 mg 06/14/21 17:00 06/14/21 16:32 Ferrous Sulfate 324 Mg Tablet PO 648 mg BID LEAH Administration Glucagon 1 mg 06/09/21 12:33 Glucagon For Inj 1 Mg Vial IM PRN PRN Hypoglycemia Protocol Glucose 15 gm 06/09/21 12:33 Glucose Oral Gel 15 Gm Of Glucse In 37.5 Gm Tube PO PRN PRN Hypoglycemia Protoco
[2021-06-15] MEDS: CLOPIDOGREL BISULFATE 75 MG TABLET PO (08:56)
[2021-06-15] MEDS: ERGOCALCIFEROL 50,000 UNIT CAPSULE 50000 UNITS PO (08:56)
[2021-06-15] MEDS: ATORVASTATIN 40 MG TABLET 80 MG PO (08:56)
[2021-06-15] MEDS: TAMSULOSIN HCL 0.4 MG CAPSULE PO (08:56)
[2021-06-15] MEDS: ENOXAPARIN 30 MG/0.3 ML SYRINGE SUB-Q (08:56)
[2021-06-15] MEDS: TIMOLOL MALEATE 0.5% OP SOLN 5 ML BOTTLE 2 DROP EACH EYE ×2 (08:56→17:32)
[2021-06-15] MEDS: FAMOTIDINE 20 MG TABLET PO (08:56)
[2021-06-15] MEDS: FERROUS SULFATE 324 MG TABLET 648 MG PO ×2 (08:56→17:31)
[2021-06-15] MEDS: MICONAZOLE NITRATE 2% CREAM 30 GM TUBE 1 APPLIC TOPICAL (08:57)
[2021-06-15] MEDS: EPOETIN ALFA-EPBX 10,000 UNITS/ML VIAL 10000 UNITS IV PUSH (10:30)
--- NOTE | 2021-06-15 10:56 | PM.PNGS ---
Progress Note: A&P Assessment and Plan (1) SBO (small bowel obstruction): Code(s): K56.609 - Unspecified intestinal obstruction, unspecified as to partial versus complete obstruction Status: Acute Assessment and Plan: Diet already advanced to low residue. Continue soft diet today. Possibly home tomorrow if doing well. (2) ESRD (end stage renal disease): Code(s): N18.6 - End stage renal disease Status: Chronic Subjective Subjective Date/Time Seen: 06/15/21 10:56 Interval history: Tolerating diet and bowels moving. Pain controlled. No nausea or bloating. Exam GI: Inspection: non-distended and incision (intact with сергей) GI Palp: Yes Soft to palpation, Yes Tenderness to palpation present (GI) (minimal incisional) and No Guarding due to palpation present (GI) Auscultation: normal bowel sounds Objective Data Vital Signs Vital Signs: Vital Signs - 24 hr 06/14/21 14:00 06/14/21 21:25 06/15/21 06:00 Temperature 36.6 C 36.5 C 36.4 C L Pulse Rate 70 73 71 Respiratory Rate 18 16 18 Blood Pressure 150/65 H 133/58 L 153/66 H Pulse Oximetry 100 100 100 Intake/Output Intake/Output: Intake & Output 06/12/21 06/13/21 06/14/21 06/15/21 23:59 23:59 23:59 23:59 Intake Total 1714 1430 2690 730 Output Total 440 3000 550 150 Balance 1274 -1570 2140 580 Meds/Results Medications: Active Medications Generic Name Dose Route Start Last Admin Trade Name Freq PRN Reason Stop Dose Admin Acetaminophen 500 mg 06/14/21 07:22 Acetaminophen 500 Mg Tablet PO Q6H PRN Mild Pain (1-3) or Fever Hydrocodone Bitart/Acetaminophen 1 tab 06/14/21 07:22 Hydrocodone/Acetaminophen (*Crx) 5-325 Mg Tablet PO Q4H PRN Pain Rated 4-6 Hydrocodone Bitart/Acetaminophen 1 tab 06/14/21 07:22 Hydrocodone/Acetaminophen (*Crx) 7.5-325 Mg Tablet PO Q4H PRN Pain Rated 7-10 Amlodipine Besylate 5 mg 06/15/21 09:00 Amlodipine Besylate 5 Mg Tablet PO DAILY LEAH Atorvastatin Calcium 80 mg 06/14/21 14:50 06/15/21 08:56 Atorvastatin 40 Mg Tablet PO 80 mg DAILY LEAH Administration Carvedilol 12.5 mg 06/14/21 21:00 06/14/21 20:48 Carvedilol 12.5 Mg Tablet PO 12.5 mg Q12HR LEAH Administration Clopidogrel Bisulfate 75 mg 06/12/21 09:00 06/15/21 08:56 Clopidogrel Bisulfate 75 Mg Tablet PO 75 mg DAILY LEAH Administration Dextrose 12.5 gm 06/09/21 12:33 Dextrose 50% 25 Gm/50 Ml Syringe IV PUSH PRN PRN Hypoglycemia Protocol Enoxaparin Sodium 30 mg 06/11/21 09:00 06/15/21 08:56 Enoxaparin 30 Mg/0.3 Ml Syringe SUB-Q 30 mg DAILY LEAH Administration Epoetin Lucas-epbx 10,000 units 06/11/21 09:00 06/13/21 14:13 Epoetin Lucas-Epbx 10,000 Units/Ml Vial IV PUSH Not Given [facility] Ergocalciferol 50,000 unit 06/15/21 09:00 06/15/21 08:56 Ergocalciferol 50,000 Unit Capsule PO 50,000 unit Fr@0900 LEAH Administration Famotidine 20 mg 06/14/21 09:00 06/15/21 08:56 Famotidine 20 Mg Tablet PO 20 mg DAILY LEAH Administration Ferrous Sulfate 648 mg 06/14/21 17:00 06/15/21 08:56 Ferrous Sulfate 324 Mg Tablet PO 648 mg BID LEAH Administration Glucagon 1 mg 06/09/21 12:33 Glucagon For Inj 1 Mg Vial IM PRN PRN Hypoglycemia Protocol Glucose 15 gm 06/09/21 12:33 Glucose Oral Gel 15 Gm Of Glucse In 37.5 Gm Tube PO PRN PRN Hypoglycemia Protocol Ceftriaxone Sodium/Dextrose 1 gm in 50 mls @ 100 mls/hr 06/10/21 12:00 06/14/21 12:57 Rocephin 1 Gm/D5w 50 Ml IVPB Infused Q24H LEAH Infusion Dextrose 1,000 mls @ 100 mls/hr 06/09/21 12:33 Dextrose 5% 1,000 Ml IVPB PRN PRN Hypoglycemia Protocol Insulin Aspart 2 - 5 units 06/09/21 12:00 06/15/21 06:33 Insulin Aspart (*Bkc) 100 Units/Ml SUB-Q Not Given Q6H LEAH Protocol Latanoprost 2 drop 06/11/21 21:00 06/14/21 20:48 Latanoprost 0.005% Op Soln 2.5 Ml Btl
--- NOTE | 2021-06-15 12:48 | PM.IMPN ---
Progress Note: A&P Assessment and Plan (1) SBO (small bowel obstruction): Code(s): K56.609 - Unspecified intestinal obstruction, unspecified as to partial versus complete obstruction Status: Acute Assessment and Plan: NG tube removed S/p exploratory laparotomy, POD #4 Surgery following, recommendations appreciated Pain controlled IVF Supportive care PT/OT Low residue diet (2) ESRD (end stage renal disease): Code(s): N18.6 - End stage renal disease Status: Chronic Assessment and Plan: HD TTS Nephrology following Avoid nephrtoxins Follow renal panel (3) Abdominal pain: Code(s): R10.9 - Unspecified abdominal pain Status: Acute Assessment and Plan: 2/2 SBO Supportive care with pain management (4) Chronic kidney disease (CKD), stage V: Code(s): N18.5 - Chronic kidney disease, stage 5 Status: Chronic Assessment and Plan: Treatment as above (5) BPH (benign prostatic hyperplasia): Code(s): N40.0 - Benign prostatic hyperplasia without lower urinary tract symptoms Status: Chronic Assessment and Plan: Resume home meds Monitor (6) Hyperlipidemia: Code(s): E78.5 - Hyperlipidemia, unspecified Status: Chronic Assessment and Plan: Continue with atorvastatin (7) Diabetes: Code(s): E11.9 - Type 2 diabetes mellitus without complications Status: Chronic Assessment and Plan: Hgb A1c 5.9 Accu-Cheks every 6 hours SSI Monitor (8) Hypertension: Code(s): I10 - Essential (primary) hypertension Status: Chronic Assessment and Plan: Resume home meds Monitor (9) UTI (urinary tract infection): Code(s): N39.0 - Urinary tract infection, site not specified Status: Acute Assessment and Plan: UA+ Follow UC s/p Rocephin Subjective Date/time seen: 06/15/21 12:48 Interval history: Pt denies any pain; diet advanced to low residue Review of Systems Review of Systems: All systems reviewed & are unremarkable except as noted in HPI and below Exam Const: General: cooperative, healthy appearing, comfortable, no acute distress, well developed, alert, awake and Physically active Nutritional Appearance: average body habitus Orientation/consciousness: oriented to person, oriented to place, oriented to time and patient oriented x3 Limitations: language barrier (romansh speaking) HENMT: Head: normal to inspection, No palpable skull fracture present, normocephalic and atraumatic Ears: hearing grossly normal bilaterally and external ears normal General nose exam: Normal external nose present, Normal nares present and No nasal polyps present Face and sinus: face symmetric and other (NG tube in place) Mouth: Yes Normal oral and palatal mucosa present Throat: posterior oropharynx normal Eyes: General: appearance normal, both eyes and all related structures Alignment and Position: alignment normal Periorbital: periorbital findings normal Eyelids: eyelids normal Conjunctivae: conjunctivae normal Sclera: sclerae normal Cornea: corneas normal Pupils: Equal, round and reactive pupils present EOM: EOMs intact bilaterally Other: NG tube intact to left nare Neck: Neck: normal visual inspection, full ROM, no lymphadenopathy, trachea midline, supple and no JVD Thyroid: thyroid normal Carotids: normal carotid upstroke Lymphatic: no lymphadenopathy noted Chest: Chest palpation & inspection: normal inspection of the chest Resp: Effort & Inspection: normal respiratory effort Auscultation: clear to auscultation bilaterally Percussion: percussion normal Cardio: Jugular venous distension: no JVD Palpation: normal PMI Rate: regular rate Rhythm: regular rhythm Heart sounds: S1 normal heart sound present and S2 normal heart sound present Peripheral pulses: Peripheral pulses 2+ throughout GI: Inspection: normal to inspection Auscultation: Hypoactive bowel karen
[2021-06-15] MEDS: amLODIPine BESYLATE 5 MG TABLET PO (13:04)
[2021-06-15] MEDS: carvediloL 12.5 MG TABLET PO ×2 (13:04→20:11)
[2021-06-15 13:10] LABS: Glucose Point of Care 107 mg/dl (65-105)
--- NOTE | 2021-06-15 13:16 | PCPTNOTE ---
Attempted patient who was in dialysis will continue treatment tomorrow.
[2021-06-15 16:58] LABS: Glucose Point of Care 148 mg/dl (65-105)
[2021-06-15] MEDS: LATANOPROST 0.005% OP SOLN 2.5 ML BTL 2 DROP EACH EYE (20:11)
[2021-06-15] MEDS: HYDROcodone/acetaminophen (*CRX) 5-325 MG TABLET 1 TAB PO (20:18)
[2021-06-16 06:00] VITALS: BP 147/61; PULSE 70; RESP 18; TEMP 36.5; O2SAT 100
[2021-06-16 06:56] LABS: Hemoglobin 9.6 g/dL (14.0-18.0); Mean Corpuscular Hemoglobin 29.7 pg (26-34); Mean Corpuscular Volume 92.9 fl (80-100); Mean Platelet Volume 10.7 fl (7.4-10.4); Platelet Count Result 188 k/mm3 (150-375); Red Blood Count 3.23 M/mm3 (4.6-6.20); Red Cell Distribution Width 13.5 % (11.5-14.5); White Blood Count 5.9 K/mm3 (4.5-10.0)
[2021-06-16 07:40] LABS: Anion Gap 6 mmol/L (8-16); Blood Urea Nitrogen 26 mg/dL (9-20); Calcium 7.7 mg/dL (8.4-10.2); Carbon Dioxide 30 mmol/L (22-30); Chloride 101 mmol/L (98-107); Estimated CRCL calculation 14 ml/min; Estimated Glomerular Filt Rate 14; Glucose 104 mg/dL (65-110); Potassium 3.8 mmol/L (3.4-5.0); Sodium 137 mmol/L (137-145)
[2021-06-16 08:08] LABS: Glucose Point of Care 110 mg/dl (65-105)
[2021-06-16] MEDS: CLOPIDOGREL BISULFATE 75 MG TABLET PO (08:46)
[2021-06-16] MEDS: FERROUS SULFATE 324 MG TABLET 648 MG PO ×2 (08:46→17:16)
[2021-06-16] MEDS: TAMSULOSIN HCL 0.4 MG CAPSULE PO (08:47)
[2021-06-16] MEDS: FAMOTIDINE 20 MG TABLET PO (08:47)
[2021-06-16] MEDS: amLODIPine BESYLATE 5 MG TABLET PO (08:47)
[2021-06-16] MEDS: ATORVASTATIN 40 MG TABLET 80 MG PO (08:47)
[2021-06-16 08:48] VITALS: PULSE 66
[2021-06-16] MEDS: TIMOLOL MALEATE 0.5% OP SOLN 5 ML BOTTLE 2 DROP EACH EYE ×2 (08:48→17:17)
[2021-06-16] MEDS: carvediloL 12.5 MG TABLET PO ×2 (08:48→21:29)
[2021-06-16] MEDS: ENOXAPARIN 30 MG/0.3 ML SYRINGE SUB-Q (08:48)
--- NOTE | 2021-06-16 08:51 | PM.PNNEP ---
Progress Note: A&P Assessment and Plan (1) ESRD (end stage renal disease): Code(s): N18.6 - End stage renal disease Status: Chronic Assessment and Plan: HD Thursday potassium is normal. Volume status looks okay. (2) SBO (small bowel obstruction): Code(s): K56.609 - Unspecified intestinal obstruction, unspecified as to partial versus complete obstruction Status: Acute Assessment and Plan: Surgery recommendations noted NG tube is out. on a low residue diet (3) Hypertension: Code(s): I10 - Essential (primary) hypertension Status: Chronic Assessment and Plan: systolic 117-147 on amlodipine (4) Anemia: Code(s): D64.9 - Anemia, unspecified Status: Acute Assessment and Plan: due to ESRD Epogen with HD hb up and down around 9 (5) Diabetes: Code(s): E11.9 - Type 2 diabetes mellitus without complications Status: Chronic Assessment and Plan: on Accu-Cheks and sliding-scale insulin Subjective Date/time seen: 06/16/21 08:51 Interval history: Comfortable lying in bed. He is about to start physical therapy Exam Narrative: Exam Narrative: WDWN in NAD skin no rash or subcu nodules head ncat lungs clear to auscultation cor reg no rub or gallop abd BS+ nontender and soft but mildly tender ext no edema or cyanosis Objective Data Vital Signs Vital Signs: Vital Signs - 24 hr 06/15/21 09:10 06/15/21 09:15 06/15/21 10:30 Temperature 36.7 C Pulse Rate 65 64 71 Respiratory Rate 18 Blood Pressure 154/74 H 141/74 H 137/71 Pulse Oximetry 06/15/21 11:00 06/15/21 11:30 06/15/21 12:15 Temperature Pulse Rate 69 76 79 Respiratory Rate Blood Pressure 145/74 H 125/73 122/77 Pulse Oximetry 06/15/21 12:45 06/15/21 13:00 06/15/21 13:04 Temperature 36.4 C Pulse Rate 81 77 80 Respiratory Rate 18 Blood Pressure 94/62 L 122/73 Pulse Oximetry 06/15/21 14:00 06/15/21 22:00 06/16/21 06:00 Temperature 36.8 C 36.3 C L 36.5 C Pulse Rate 74 70 70 Respiratory Rate 20 16 18 Blood Pressure 117/66 123/55 L 147/61 H Pulse Oximetry 100 99 100 06/16/21 08:48 Temperature Pulse Rate 66 Respiratory Rate Blood Pressure Pulse Oximetry Intake/Output Intake/Output: Intake & Output 06/13/21 06/14/21 06/15/21 06/16/21 23:59 23:59 23:59 23:59 Intake Total 1430 2690 1210 240 Output Total 3000 550 2525 50 Balance -1570 2140 -1315 190 Meds/Results Medications: Active Medications Generic Name Dose Route Start Last Admin Trade Name Freq PRN Reason Stop Dose Admin Acetaminophen 500 mg 06/14/21 07:22 Acetaminophen 500 Mg Tablet PO Q6H PRN Mild Pain (1-3) or Fever Hydrocodone Bitart/Acetaminophen 1 tab 06/14/21 07:22 06/15/21 20:18 Hydrocodone/Acetaminophen (*Crx) 5-325 Mg Tablet PO 1 tab Q4H PRN Administration Pain Rated 4-6 Hydrocodone Bitart/Acetaminophen 1 tab 06/14/21 07:22 Hydrocodone/Acetaminophen (*Crx) 7.5-325 Mg Tablet PO Q4H PRN Pain Rated 7-10 Amlodipine Besylate 5 mg 06/15/21 09:00 06/16/21 08:47 Amlodipine Besylate 5 Mg Tablet PO 5 mg DAILY LEAH Administration Atorvastatin Calcium 80 mg 06/14/21 14:50 06/16/21 08:47 Atorvastatin 40 Mg Tablet PO 80 mg DAILY LEAH Administration Carvedilol 12.5 mg 06/14/21 21:00 06/16/21 08:48 Carvedilol 12.5 Mg Tablet PO 12.5 mg Q12HR LEAH Administration Clopidogrel Bisulfate 75 mg 06/12/21 09:00 06/16/21 08:46 Clopidogrel Bisulfate 75 Mg Tablet PO 75 mg DAILY LEAH Administration Dextrose 12.5 gm 06/09/21 12:33 Dextrose 50% 25 Gm/50 Ml Syringe IV PUSH PRN PRN Hypoglycemia Protocol Enoxaparin Sodium 30 mg 06/11/21 09:00 06/16/21 08:48 Enoxaparin 30 Mg/0.3 Ml Syringe SUB-Q 30 mg DAILY LEAH Administration Epoetin Lucas-epbx 10,000 units 06/11/21 09:00 06/15/21 10:30 Epoetin Lucas-Epbx
[2021-06-16] MEDS: MICONAZOLE NITRATE 2% CREAM 30 GM TUBE 1 APPLIC TOPICAL (08:56)
[2021-06-16 11:33] LABS: Glucose Point of Care 159 mg/dl (65-105)
--- NOTE | 2021-06-16 12:02 | PM.DS ---
DS: Discharge Diagnosis Discharge Diagnosis (1) SBO (small bowel obstruction): Code(s): K56.609 - Unspecified intestinal obstruction, unspecified as to partial versus complete obstruction Status: Acute Assessment and Plan: resolved imaging SBO S/p exploratory laparotomy Low residue diet follow-up with surgery (2) ESRD (end stage renal disease): Code(s): N18.6 - End stage renal disease Status: Chronic Assessment and Plan: continue hemodialysis patient. At baseline follow-up with outpatient Nephrology (3) Abdominal pain: Code(s): R10.9 - Unspecified abdominal pain Status: Acute Assessment and Plan: resolved secondary to small-bowel obstruction refer to small-bowel obstruction (4) Chronic kidney disease (CKD), stage V: Code(s): N18.5 - Chronic kidney disease, stage 5 Status: Chronic Assessment and Plan: Treatment as above (5) BPH (benign prostatic hyperplasia): Code(s): N40.0 - Benign prostatic hyperplasia without lower urinary tract symptoms Status: Chronic Assessment and Plan: continue home medication (6) Hyperlipidemia: Code(s): E78.5 - Hyperlipidemia, unspecified Status: Chronic Assessment and Plan: Continue with atorvastatin (7) Diabetes: Code(s): E11.9 - Type 2 diabetes mellitus without complications Status: Chronic Assessment and Plan: Hgb A1c 5.9 continue home medication (8) Hypertension: Code(s): I10 - Essential (primary) hypertension Status: Chronic Assessment and Plan: continue home medication (9) UTI (urinary tract infection): Code(s): N39.0 - Urinary tract infection, site not specified Status: Acute Assessment and Plan: UA+ Follow UC s/p Rocephin DS: Summary Hospital Course Reason for hospitalization: abdominal pain Hospital Course: This is a 81-year-old Georgian-speaking male patient who has end-stage renal disease and has dialysis on Thursday and Thursday nephrology was consulted. previous to admission patient complained about abdominal pain which is new to him. Abdominal pelvis CT was read as mildly dilated small bowel loops with decompressed distal small bowel ileus versus obstruction. surgery was consulted, and an Adhesiolysis for small bowel obstruction was completed on 06/11/2021. patient diet was advanced and he is able to tolerate he was discharged today follow-up with surgery and Nephrology. Patient denies cp, sob, palpitation, diarrhea, constipation, lightheadness, headache, dizziness or chills and fevers information obtained via [employer] architect time spent 60 Time Spent with Patient Time attestation: Total time spent providing and/or coordinating discharge services: Exam Narrative: Exam Narrative: General: A well-developed, well-nourished male sitting up in bed no acute distress. HEENT: Normocephalic, atraumatic. PERRL, EOMI. Sclerae anicteric. Oral mucosa moist. Oropharynx clear. Neck: Supple. Respiratory: Lungs are clear to auscultation bilaterally. Cardiovascular: Regular rate and rhythm with S1-S2. Gastrointestinal: Abdomen is soft, tender with palpation, and nondistended with positive bowel sounds. No organomegaly. Skin: Warm, dry, and slightly pale.. No rash or lesions on limited exam. surgical site healing well Extremities: No cyanosis, clubbing, or edema. Radial and pedal pulses intact. Neurological: Alert. Cranial nerves 2-12 are grossly intact. No gross focal deficits to casual conversation. Psychiatric: Pleasant and cooperative with normal mood and affect. Judgment and insight intact. DS: Data Data Completed and Pending Labs on day of discharge: Labs from last 24 hours 06/16/21 06/16/21 06/16/21 11:20 08:06 06:30 WBC RBC Hgb Hct MCV MCH MCHC RDW Plt Count MPV Sodium 137 Potassium 3.8
--- NOTE | 2021-06-16 12:27 | WPDPN ---
Progress Note: A&P Assessment and Plan (1) SBO (small bowel obstruction): Code(s): K56.609 - Unspecified intestinal obstruction, unspecified as to partial versus complete obstruction Status: Acute Assessment and Plan: resolved imaging SBO S/p exploratory laparotomy Low residue diet follow-up with surgery (2) ESRD (end stage renal disease): Code(s): N18.6 - End stage renal disease Status: Chronic Assessment and Plan: continue hemodialysis creatinine 4.10 patient At baseline renal dose medication avoid nephrotoxins agents (3) Abdominal pain: Code(s): R10.9 - Unspecified abdominal pain Status: Acute Assessment and Plan: resolved secondary to small-bowel obstruction refer to small-bowel obstruction (4) Chronic kidney disease (CKD), stage V: Code(s): N18.5 - Chronic kidney disease, stage 5 Status: Chronic Assessment and Plan: Treatment as above (5) BPH (benign prostatic hyperplasia): Code(s): N40.0 - Benign prostatic hyperplasia without lower urinary tract symptoms Status: Chronic Assessment and Plan: continue home medication (6) Hyperlipidemia: Code(s): E78.5 - Hyperlipidemia, unspecified Status: Chronic Assessment and Plan: Continue with atorvastatin (7) Diabetes: Code(s): E11.9 - Type 2 diabetes mellitus without complications Status: Chronic Assessment and Plan: Hgb A1c 5.9 continue home medication continue Accu-Cheks with sliding scale and hypoglycemic protocol (8) Hypertension: Code(s): I10 - Essential (primary) hypertension Status: Chronic Assessment and Plan: continue home medication (9) UTI (urinary tract infection): Code(s): N39.0 - Urinary tract infection, site not specified Status: Acute Assessment and Plan: UA+ for the growth of klebsiella sensitive for Rocephin and enterococcus sensitive to ampicillin, vancomycin and Macrobid on 06/09/2021 due to patient's renal failure he is unable to take Macrobid he will need to discharge with either vancomycin or ampicillin. case coordination consult for possible placement for IV therapy will place order for PICC line for tomorrow Subjective Date/time seen: 06/16/21 12:27 patient has no complaints at this time. Patient was able to tolerate meal and denies any abdominal pain ,diarrhea or nausea vomiting. All information obtained from transportation program director. Patient denies cp, sob, palpitation, diarrhea, constipation, lightheadness, headache, dizziness or chills and fevers. Review of Systems Review of Systems: All systems reviewed & are unremarkable except as noted in HPI and below Exam Narrative: Exam Narrative: General: A well-developed, well-nourished male sitting up in bed no acute distress. HEENT: Normocephalic, atraumatic. PERRL, EOMI. Sclerae anicteric. Oral mucosa moist. Oropharynx clear. Neck: Supple. Respiratory: Lungs are clear to auscultation bilaterally. Cardiovascular: Regular rate and rhythm with S1-S2. Gastrointestinal: Abdomen is soft, nontender, and nondistended with positive bowel sounds. No organomegaly. Skin: Warm, dry, and slightly pale.. No rash or lesions on limited exam. Surgical site healing Extremities: No cyanosis, clubbing, or edema. Radial and pedal pulses intact. Neurological: Alert. Cranial nerves 2-12 are grossly intact. No gross focal deficits to casual conversation. Psychiatric: Pleasant and cooperative with normal mood and affect. Judgment and insight intact. Objective Data Vital Signs Vital Signs: Vital Signs - 24 hr 06/15/21 12:45 06/15/21 13:00 06/15/21 13:04 Temperature 97.6 F Pulse Rate 81 77 80 Respiratory Rate 18 Blood Pressure 94/62 L 122/73 Pulse Oximetry 06/15/21 14:00 06/15/21 22:00 06/16/21 06:00 Temperature 98.2 F 97.3 F L 97.7 F Pulse Rate 74 70 70 Res
--- NOTE | 2021-06-16 12:43 | PM.PNGS ---
Progress Note: A&P Assessment and Plan (1) SBO (small bowel obstruction): Code(s): K56.609 - Unspecified intestinal obstruction, unspecified as to partial versus complete obstruction Status: Acute Assessment and Plan: Doing well postop. OK to discharge from surgical standpoint. Follow up in 1 week for staple removal. (2) ESRD (end stage renal disease): Code(s): N18.6 - End stage renal disease Status: Chronic Subjective Subjective Date/Time Seen: 06/16/21 12:43 Interval history: Tolerating diet. Bowels moving. Pain controlled. Exam GI: Inspection: incision (intact with сергей) GI Palp: No Guarding due to palpation present (GI) Auscultation: normal bowel sounds Objective Data Vital Signs Vital Signs: Vital Signs - 24 hr 06/15/21 12:45 06/15/21 13:00 06/15/21 13:04 Temperature 36.4 C Pulse Rate 81 77 80 Respiratory Rate 18 Blood Pressure 94/62 L 122/73 Pulse Oximetry 06/15/21 14:00 06/15/21 22:00 06/16/21 06:00 Temperature 36.8 C 36.3 C L 36.5 C Pulse Rate 74 70 70 Respiratory Rate 20 16 18 Blood Pressure 117/66 123/55 L 147/61 H Pulse Oximetry 100 99 100 06/16/21 08:48 Temperature Pulse Rate 66 Respiratory Rate Blood Pressure Pulse Oximetry Intake/Output Intake/Output: Intake & Output 06/13/21 06/14/21 06/15/21 06/16/21 23:59 23:59 23:59 23:59 Intake Total 1430 2690 1260 360 Output Total 3000 550 2525 50 Balance -1570 2140 -1265 310 Meds/Results Medications: Active Medications Generic Name Dose Route Start Last Admin Trade Name Freq PRN Reason Stop Dose Admin Acetaminophen 500 mg 06/14/21 07:22 Acetaminophen 500 Mg Tablet PO Q6H PRN Mild Pain (1-3) or Fever Hydrocodone Bitart/Acetaminophen 1 tab 06/14/21 07:22 06/15/21 20:18 Hydrocodone/Acetaminophen (*Crx) 5-325 Mg Tablet PO 1 tab Q4H PRN Administration Pain Rated 4-6 Hydrocodone Bitart/Acetaminophen 1 tab 06/14/21 07:22 Hydrocodone/Acetaminophen (*Crx) 7.5-325 Mg Tablet PO Q4H PRN Pain Rated 7-10 Amlodipine Besylate 5 mg 06/15/21 09:00 06/16/21 08:47 Amlodipine Besylate 5 Mg Tablet PO 5 mg DAILY LEAH Administration Atorvastatin Calcium 80 mg 06/14/21 14:50 06/16/21 08:47 Atorvastatin 40 Mg Tablet PO 80 mg DAILY LEAH Administration Carvedilol 12.5 mg 06/14/21 21:00 06/16/21 08:48 Carvedilol 12.5 Mg Tablet PO 12.5 mg Q12HR LEAH Administration Clopidogrel Bisulfate 75 mg 06/12/21 09:00 06/16/21 08:46 Clopidogrel Bisulfate 75 Mg Tablet PO 75 mg DAILY LEAH Administration Dextrose 12.5 gm 06/09/21 12:33 Dextrose 50% 25 Gm/50 Ml Syringe IV PUSH PRN PRN Hypoglycemia Protocol Enoxaparin Sodium 30 mg 06/11/21 09:00 06/16/21 08:48 Enoxaparin 30 Mg/0.3 Ml Syringe SUB-Q 30 mg DAILY LEAH Administration Epoetin Lucas-epbx 10,000 units 06/11/21 09:00 06/15/21 10:30 Epoetin Lucas-Epbx 10,000 Units/Ml Vial IV PUSH 10,000 units TUTHSA LEAH Administration Ergocalciferol 50,000 unit 06/15/21 09:00 06/15/21 08:56 Ergocalciferol 50,000 Unit Capsule PO 50,000 unit Fr@0900 LEAH Administration Famotidine 20 mg 06/14/21 09:00 06/16/21 08:47 Famotidine 20 Mg Tablet PO 20 mg DAILY LEAH Administration Ferrous Sulfate 648 mg 06/14/21 17:00 06/16/21 08:46 Ferrous Sulfate 324 Mg Tablet PO 648 mg BID LEAH Administration Glucagon 1 mg 06/09/21 12:33 Glucagon For Inj 1 Mg Vial IM PRN PRN Hypoglycemia Protocol Glucose 15 gm 06/09/21 12:33 Glucose Oral Gel 15 Gm Of Glucse In 37.5 Gm Tube PO PRN PRN Hypoglycemia Protocol Ceftriaxone Sodium/Dextrose 1 gm in 50 mls @ 100 mls/hr 06/10/21 12:00 06/16/21 11:38 Rocephin 1 Gm/D5w 50 Ml IVPB 100 mls/hr Q24H LEAH Administration Dextrose 1,000 mls @ 100 mls/hr 06/09/21 12:33 Dextrose 5% 1,000 Ml IVPB PRN PRN Hypoglycemia Protocol Ins
--- NOTE | 2021-06-16 14:12 | PC.NURSE ---
Order for PICC line placement clarified. Per case management, do not move forward with PICC placement for 06/16/2021. Vancomycin IV to be reevaluated to be administered at dialysis per case management. PICC placement to be reevaluated on 06/17/2021 upon clarification. Johnny Rivas, hospitalist, agrees with treatment plan.
[2021-06-16 15:00] VITALS: BP 136/63; PULSE 68; RESP 12; TEMP 36.6; O2SAT 100
[2021-06-16] MEDS: LATANOPROST 0.005% OP SOLN 2.5 ML BTL 2 DROP EACH EYE (21:29)
[2021-06-16 21:34] VITALS: BP 134/61; PULSE 67; RESP 18; TEMP 36.7; O2SAT 100
[2021-06-17 05:47] VITALS: BP 155/64; PULSE 68; RESP 18; TEMP 36.7; O2SAT 100
[2021-06-17 06:50] LABS: Estimated CRCL calculation 10 ml/min; Estimated Glomerular Filt Rate 10
--- NOTE | 2021-06-17 08:21 | PM.PNGS ---
Progress Note: A&P Assessment and Plan (1) SBO (small bowel obstruction): Code(s): K56.609 - Unspecified intestinal obstruction, unspecified as to partial versus complete obstruction Status: Acute Assessment and Plan: Doing well after surgery 6 days ago. Requiring no analgesics and comfortable on solid food, renal diet. Okay to discharge from my perspective. I will see him in the office in 1 week for wound management. He has done quite well. Discharged when okay with hospitalist Service. Subjective Subjective Date/Time Seen: 06/17/21 08:21 Post Op day: #6 Patient reports: no new complaints, feels better, pain is less, tolerating a regular diet, bowel movement and afebrile Review of Systems Review of Systems: All systems reviewed & are unremarkable except as noted in HPI and below Constitutional: Constitutional: Reports as per HPI, Denies chills, Denies fever(s), Denies headache(s) and Denies poor appetite Gastrointestinal: Gastrointestinal: Reports as per HPI, Denies abdominal pain, Denies constipation, Denies nausea and Denies vomiting Exam Const: General: cooperative, healthy appearing, comfortable, no acute distress and alert Nutritional Appearance: well nourished and thin Limitations: language barrier GI: Inspection: non-distended, incision ( incision looks good, no evidence of infection.) and scaphoid GI Palp: Yes Soft to palpation, No Tenderness to palpation present (GI), No Guarding due to palpation present (GI) and No Rebound tenderness present Auscultation: normal bowel sounds Extrem: General: no calf tenderness and no edema Objective Data Vital Signs Vital Signs: Vital Signs - 24 hr 06/16/21 08:48 06/16/21 15:00 06/16/21 21:34 Temperature 36.6 C 36.7 C Pulse Rate 66 68 67 Respiratory Rate 12 18 Blood Pressure 136/63 134/61 Pulse Oximetry 100 100 06/17/21 05:47 Temperature 36.7 C Pulse Rate 68 Respiratory Rate 18 Blood Pressure 155/64 H Pulse Oximetry 100 Intake/Output Intake/Output: Intake & Output 06/14/21 06/15/21 06/16/21 06/17/21 23:59 23:59 23:59 23:59 Intake Total 2690 1260 1200 750 Output Total 550 2525 50 Balance 2140 -1265 1150 750 Meds/Results Medications: Active Medications Generic Name Dose Route Start Last Admin Trade Name Freq PRN Reason Stop Dose Admin Acetaminophen 500 mg 06/14/21 07:22 Acetaminophen 500 Mg Tablet PO Q6H PRN Mild Pain (1-3) or Fever Hydrocodone Bitart/Acetaminophen 1 tab 06/14/21 07:22 06/15/21 20:18 Hydrocodone/Acetaminophen (*Crx) 5-325 Mg Tablet PO 1 tab Q4H PRN Administration Pain Rated 4-6 Hydrocodone Bitart/Acetaminophen 1 tab 06/14/21 07:22 Hydrocodone/Acetaminophen (*Crx) 7.5-325 Mg Tablet PO Q4H PRN Pain Rated 7-10 Amlodipine Besylate 5 mg 06/15/21 09:00 06/16/21 08:47 Amlodipine Besylate 5 Mg Tablet PO 5 mg DAILY LEAH Administration Atorvastatin Calcium 80 mg 06/14/21 14:50 06/16/21 08:47 Atorvastatin 40 Mg Tablet PO 80 mg DAILY LEAH Administration Carvedilol 12.5 mg 06/14/21 21:00 06/16/21 21:29 Carvedilol 12.5 Mg Tablet PO 12.5 mg Q12HR LEAH Administration Clopidogrel Bisulfate 75 mg 06/12/21 09:00 06/16/21 08:46 Clopidogrel Bisulfate 75 Mg Tablet PO 75 mg DAILY LEAH Administration Dextrose 12.5 gm 06/09/21 12:33 Dextrose 50% 25 Gm/50 Ml Syringe IV PUSH PRN PRN Hypoglycemia Protocol Enoxaparin Sodium 30 mg 06/11/21 09:00 06/16/21 08:48 Enoxaparin 30 Mg/0.3 Ml Syringe SUB-Q 30 mg DAILY LEAH Administration Epoetin Lucas-epbx 10,000 units 06/11/21 09:00 06/15/21 10:30 Epoetin Lucas-Epbx 10,000 Units/Ml Vial IV PUSH 10,000 units TUTHSA LEAH Administration Ergocalciferol 50,000 unit 06/15/21 09:00 06/15/21 08:56 Ergocalciferol 50,000 Unit Capsule PO 50,000 unit Fr@0900 LEAH Administration Famotidine 20 mg 06/14/21 09:00 06/16/21 08:47 Famotidine 20 Mg Tabl
[2021-06-17 08:59] VITALS: PULSE 70
[2021-06-17] MEDS: carvediloL 12.5 MG TABLET PO (08:59)
[2021-06-17] MEDS: ATORVASTATIN 40 MG TABLET 80 MG PO (08:59)
[2021-06-17] MEDS: amLODIPine BESYLATE 5 MG TABLET PO (08:59)
[2021-06-17] MEDS: FERROUS SULFATE 324 MG TABLET 648 MG PO (09:00)
[2021-06-17] MEDS: CLOPIDOGREL BISULFATE 75 MG TABLET PO (09:00)
[2021-06-17] MEDS: FAMOTIDINE 20 MG TABLET PO (09:00)
[2021-06-17] MEDS: ENOXAPARIN 30 MG/0.3 ML SYRINGE SUB-Q (09:01)
[2021-06-17] MEDS: MICONAZOLE NITRATE 2% CREAM 30 GM TUBE 1 APPLIC TOPICAL (09:02)
[2021-06-17] MEDS: TAMSULOSIN HCL 0.4 MG CAPSULE PO (09:02)
[2021-06-17] MEDS: TIMOLOL MALEATE 0.5% OP SOLN 5 ML BOTTLE 2 DROP EACH EYE (09:02)
--- NOTE | 2021-06-17 11:53 | PCNFU ---
Nutrition Follow-Up Complete: Altered GI function as related to small bowel obstruction as evidenced by NPO/Clear liquids greater than 5 days. Goal: Meet estimated nutritional needs Patient has not yet met goal. Will continue to work towards goal. Pt current nutrition is Low fiber. Last recorded weight is 75.8 kg. Bowel Motility: Last BM:06/17 Labs Reviewed: Hgb 9.6, Hct 30.0, Na 137, K 3.8, GFR 14, BUN 26, Cr 4.10, Glu 104 Meds Noted: Tylenol, Erbacon, Norvasc, Lipitor, Coreg, Rocephin, Plavix, Dextrose, Lovenox, Retacrit, Drisdol, Pepcid, Ferrous Sulfate, Xalatan, Morphine, Narcan, Zofran, Flomax, Timoptic, Vancomycin. Additional Notes: [employer] translation service used with patient due to Maori speaking barrier. Patient is receiving PICC line for home antibiotic treatment after discharge. 25 to 75% of meals being consumed. Patient reported his usual body weight is 186 pounds, and that he has lost more weight since being NPO in the hospital. Will continue to monitor weight and bowel motility. Will monitor every 5 days.
--- NOTE | 2021-06-17 12:18 | PCNSR ---
On 06/17/21, the student, Johana Yi, provided care and [facility]. I have reviewed the student's documentation and agree with the findings.
--- NOTE | 2021-06-17 13:42 | PM.DS ---
DS: Admitting Diagnosis Admitting Diagnosis Small bowel obstruction DS: Discharge Diagnosis Discharge Diagnosis (1) SBO (small bowel obstruction): Code(s): K56.609 - Unspecified intestinal obstruction, unspecified as to partial versus complete obstruction Status: Acute Assessment and Plan: resolved imaging SBO S/p exploratory laparotomy Low residue diet follow-up with surgery Follow up with surgery in one week (2) ESRD (end stage renal disease): Code(s): N18.6 - End stage renal disease Status: Chronic Assessment and Plan: continue hemodialysis creatinine 4.10 patient At baseline renal dose medication avoid nephrotoxins agents Dialysis tomorrow (3) Abdominal pain: Code(s): R10.9 - Unspecified abdominal pain Status: Acute Assessment and Plan: resolved secondary to small-bowel obstruction refer to small-bowel obstruction better now (4) Chronic kidney disease (CKD), stage V: Code(s): N18.5 - Chronic kidney disease, stage 5 Status: Chronic Assessment and Plan: Treatment as above Nephrology following (5) BPH (benign prostatic hyperplasia): Code(s): N40.0 - Benign prostatic hyperplasia without lower urinary tract symptoms Status: Chronic Assessment and Plan: continue home medication (6) Hyperlipidemia: Code(s): E78.5 - Hyperlipidemia, unspecified Status: Chronic Assessment and Plan: Continue with atorvastatin (7) Diabetes: Code(s): E11.9 - Type 2 diabetes mellitus without complications Status: Chronic Assessment and Plan: Hgb A1c 5.9 continue home medication continue Accu-Cheks with sliding scale and hypoglycemic protocol (8) Hypertension: Code(s): I10 - Essential (primary) hypertension Status: Chronic Assessment and Plan: continue home medication (9) UTI (urinary tract infection): Code(s): N39.0 - Urinary tract infection, site not specified Status: Acute Assessment and Plan: UA+ for the growth of klebsiella sensitive for Rocephin and enterococcus sensitive to ampicillin, vancomycin and Macrobid on 06/09/2021 due to patient's renal failure he is unable to take Macrobid he will need to discharge with either vancomycin or ampicillin. case coordination consult for possible placement for IV therapy will place order for PICC line for tomorrow DS: Summary Hospital Course Hospital Course: Patient is an 81 year old male with multiple health problems that presented to the ED with complaints of abdominal pain. Patient did have a revision of the small intestine. He was also treated with ceftriaxone Nephrology did follow since the patient does have end-stage renal disease. patient will have dialysis again on Thursday. Patient also has UTI that did grow Enterococcus species and will be sent home with 7 days of ampicillin. patient will also need to follow-up with general surgery in 1 week for wound management. Patient's labs have been stable through admission with a white count of 5.9 upon discharge sodium was 137, potassium is 3.8 BUN and creatinine are stable at 26 and 5.40 for his condition. no growth to date on all blood cultures. today patient stated that he is ready to go and is tolerating solids and liquids. Patient denies chest pain, abdominal pain, nausea, vomiting, weakness, chills, sweats, fevers, or headache. Status at Discharge Functional status at discharge: independent ambulation Overall status at discharge: patient is progressing back to baseline Time Spent with Patient Time attestation: Total time spent providing and/or coordinating discharge services:48 minutes Time spent: Greater than 30 minutes Specific discharge activities: Education, chart review, documentation, lab review, diagnostic testing, and education Exam Const: General: cooperative, healthy appeari
[2021-06-17 13:57] VITALS: BP 134/67; PULSE 71; RESP 12; TEMP 36.6; O2SAT 100
== END 2021-06-17 15:10 | disposition home or self-care (01) | DRG 224 ==
LOC: ANHED 12:47 → ANH3MEDSUR 15:41
PROVIDERS: Emergency Medicine; Internal Medicine Nephrology; Nurse Practitioner; Surgery; Admitting Provider Internal Medicine Critical Care Medicine; Emergency Provider Emergency Medicine; PCP Physician Assistant; Visit Provider Nurse Practitioner
PROC: 0DNN0ZZ Release Sigmoid Colon, Open Approach (ICD-10-PCS; CPT 49000; principal; 2021-06-11 14:00)
DX: K56.51 Intestinal adhesions [bands], with partial obstruction (principal); E11.22 Type 2 diabetes mellitus with diabetic chronic kidney disease; I12.0 Hypertensive chronic kidney disease with stage 5 chronic kidney disease or end stage renal disease; N18.6 End stage renal disease; D63.1 Anemia in chronic kidney disease; N39.0 Urinary tract infection, site not specified; B95.2 Enterococcus as the cause of diseases classified elsewhere; N40.0 Benign prostatic hyperplasia without lower urinary tract symptoms; E78.5 Hyperlipidemia, unspecified; I25.10 Atherosclerotic heart disease of native coronary artery without angina pectoris; I25.2 Old myocardial infarction; Z86.73 Personal history of transient ischemic attack (TIA), and cerebral infarction without residual deficits; Z90.49 Acquired absence of other specified parts of digestive tract
CPT/HCPCS: 36415; 74018; 74176; 80048; 80053; 80069; 81001; 82565; 82948; 83036; 83605; 83690; 83735; 84443; 85025; 85027; 86706; 86850; 86900; 86901; 87040; 87077; 87086; 87088; 87186; 87340; 93005; 96374; 97110; 97116; 97161; 97165; 97535; 99285; A9270; G0257; J0131; J0330; J0690; J0696; J1170; J1644; J1650; J1741; J2270; J2405; J2704; J3370; J7030; J7040; Q5106

== ENCOUNTER 2021-06-24 11:46 | Outpatient (CLI) | payer OTHER, SELFPAY ==
[2021-06-24 12:06] LABS: Hematocrit 31.7 % (42.0-52.0); Hemoglobin 9.9 g/dL (14.0-18.0)
== END 2021-06-24 11:47 | disposition home or self-care (01) ==
PROVIDERS: PCP Physician Assistant; Visit Provider Surgery
DX: R19.5 Other fecal abnormalities (principal)
CPT/HCPCS: 36415; 85014; 85018

== ENCOUNTER 2021-11-19 14:20 | Emergency (ER) | payer OTHER, SELFPAY ==
[2021-11-19 14:28] VITALS: BP 99/54; PULSE 78; RESP 20; TEMP 36.6; O2SAT 99
[2021-11-19 16:09] VITALS: BP 97/56; PULSE 74; RESP 20; TEMP 36.4; O2SAT 100
[2021-11-19 17:03] VITALS: BP 98/57; PULSE 73; RESP 18; O2SAT 99
--- NOTE | 2021-11-19 17:07 | PC.NURSE ---
pt. daughter asking for repeat VS. states they are going to go home if they are normal.
== END 2021-11-20 03:08 | disposition left against medical advice (07) ==
LOC: ANHED 17:11
DX: Z53.21 Procedure and treatment not carried out due to patient leaving prior to being seen by health care provider (principal)
CPT/HCPCS: 99199